=== PATIENT | male | born 1940 | race Caucasian/White ===

== ENCOUNTER 2016-05-25 10:20 | Inpatient (IN) | payer OTHER, MEDICARE ==
[~2016-05-25] VITALS: Ht 172.7 cm; Wt 72.6 kg
--- NOTE | 2016-05-25 10:39 | ED DYSPNEA/ASTHMA COMPLAINT ---
History of Present Illness General Chief Complaint: Dyspnea (COPD, CHF, Other) Stated Complaint: SOB HX OF COPD Source: patient, family Exam Limitations: no limitations Vital Signs & Intake/Output Vital Signs & Intake/Output Vital Signs Date Time Temp Pulse Resp B/P Pulse O2 O2 Flow FiO2 Ox Delivery Rate 05/25 1605 97.8 98 18 118/56 93 Nasal 4.0L Cannula 05/25 1507 97.8 100 18 132/64 96 Nasal 2.0L Cannula 05/25 1143 97.0 98 18 128/62 95 Nasal 2.0L Cannula 05/25 1100 97 Nasal 4.0L Cannula 05/25 1046 92 Nasal 4.0L Cannula 05/25 1020 97.3 101 18 146/78 89 Room Air Allergies Coded Allergies: No Known Allergies (05/25/16) Reconcile Medications Aspirin (Ecotrin*) 81 MG TABLET.DR 1 TAB PO DAILY HEART HEALTH (Reported) Atenolol 50 MG TABLET 1 TAB PO BID HEART (Reported) Atorvastatin Calcium 40 MG TABLET 1 TAB PO DAILY CHOLESTEROL (Reported) Budesonide/Formoterol Fumarate (Symbicort 160-4.5 Mcg Inhaler) 160 MCG-4.5 MCG/ ACTUATION HFA.AER.AD 2 PUF INH BID BREATHING PROBLEMS (Reported) Clopidogrel Bisulfate (Clopidogrel) 75 MG TABLET 1 TAB PO Q48 BLOOD THINNER ( Reported) Diltiazem HCl (Diltiazem 24HR ER) 180 MG CAP.ER.24H 1 CAP PO BID HEART ( Reported) Glipizide (Glipizide ER) 5 MG TAB.ER.24 1 TAB PO DAILY DM (Reported) Irbesartan 300 MG TABLET 1 TAB PO DAILY HEART (Reported) Metformin HCl 1,000 MG TABLET 1 TAB PO BID DM (Reported) Tiotropium [place] (Spiriva) 18 MCG CAP.W.DEV 1 CAP INH DAILY BREATHING PROBLEMS (Reported) Triage Note: 75 Y/O MALE C/O SOB, WORSE WITH EXERTION, FOR APPROX 1 WEEK. STATES "ANY EXERTION AND I AM STRUGGLING. I THINK IT STARTED A COLD AND JUST GOT WORSE". DENIES PAIN. DENIES FEELING SOB IN TRIAGE BUT STATES "IF I WALK TO THE CORNER, I WILL BE". C/O COUGH WITH "YELLOW" MUCOUS. AFEBRILE Triage Nurses Notes Reviewed? yes Onset: Gradual Duration: week(s): (1) Timing: recent history Severity: moderate Activities at Onset: activity Prior Episodes/Possible Cause: occasional episodes Modifying Factors: Improves With: immobilization. HPI: Patient is a 75-year-old male with history of COPD, CAD, history of cardiac stents coming in with shortness of breath, sputum production worsening over the past 1 week. Exertion makes the shortness of breath worse. Denies any chest pain or palpitations. Reports that he feels wheezy. No relief with inhalers at home. Denies chills or fevers. No sick contacts or travel. Denies any abdominal pain. No nausea or vomiting. Denies change in bowel habits. (ANNEL FUENTES) Past History Travel History Traveled to [place] past 21 day No Medical History Any Pertinent Medical History? 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 No (ANNEL FUENTES) Review of Systems Review of Systems Constitutional: Reports: malaise. Comments Review of systems: See HPI, All other systems negative. Constitutional, no chills fever or weight loss HEENT: No visual changes no sore throat Cardiovascular: No chest pain ,palpitation , orthopnea or ankle swelling Skin, no jaundice no rashes Respiratory: No hemoptysis GI: No nausea no vomiting : No dysuria No hematuria Muscle skeletal: no back pain, no neck pain, Neurologic: No numbness no confusion Psych: No stress anxiety or depression,. Heme/endocrine: No bruising no bleeding no polyuria or polydipsia Immunology: No splenectomy or history of AIDS (ANNEL FUENTES) Physical Exam Physical Exam General Appearance: well developed/nourished, no apparent distress, alert, awake , comfortable Respiratory: decreased breath sounds, rhonchi Comments: Well-developed well-nourished person in no acute distress HEENT: Pupils equally round and reactive to light and accommodation. Nose is atraumatic. External auditory canal and Tympanic membranes clear. Pharynx normal. No swelling or edema. Very dry oral mucosa. Neck: Supple, no lymphadenopathy, normal range of motion without pain or tenderness Back: Nontender Cardiovascular: Regular rate and rhythms no murmurs rubs or gallops, normal JVP Respiratory: Chest nontender. No respiratory distress.breath sounds diffuse rhonchi to auscultation bilaterally. Abdomen: Soft, nontender nondistended, no appreciable organomegaly. Normal bowel sounds. No ascites Extremity: One plus pitting edema in the lower extremities bilaterally around the ankles, no calf tenderness to palpation, normal and equal pulses. Neuro: Alert oriented x3 Skin: No appreciable rash on exposed skin, skin is warm and dry. Psych: Mood and affect is normal, memory and judgment is normal. Core Measures ACS in differential dx? Yes Severe Sepsis Present: No Septic Shock Present: No (NARESH SHELDON,ANNEL) Progress Differential Diagnosis: CBC exacerbation, pneumonia, bronchitis, lung cancer, pleural effusion, CHF Plan of Care: Orders Procedure Date/time Status CBC WITHOUT DIFFERENTIAL 05/26 0600 Active BASIC ELECTROLYTES PLUS BUN&CR 05/26 0600 Active Consistent Carbohydrate 2 05/25 D Active Code Status 05/25 1357 Active Admit to inpatient 05/25 1339 Active Code Status 05/25 1339 Complete TRC EVALUATION (GEN) 05/25 1310 Active OXYGEN SETUP (GEN) 05/25 1310 Active Pathway - chart 05/25 1310 Active House Staff 05/25 1310 Active RAPID VIRAL INFLUENZA A 05/25 1310 Active SPECIMEN TO BE OBTAINED 05/25 1310 Active STREP PNEUMO URINARY ANTIGEN 05/25 1310 Active LEGIONELLA URINARY ANTIGEN 05/25 1310 Active Patient Data 05/25 1239 Active BLOOD CULTURE 05/25 1208 Active ARTERIAL BLOOD GAS (GEN) 05/25 1047 Complete Intake & Output 05/25 1046 Active TROPONIN LEVEL 05/25 1038 Complete PARTIAL THROMBOPLASTIN TIME 05/25 1038 Complete PROTHROMBIN TIME 05/25 1038 Complete COMPREHENSIVE METABOLIC PANEL 05/25 1038 Complete CBC WITHOUT DIFFERENTIAL 05/25 1038 Complete EKG 05/25 1022 Active VTE Mechanical Prophylaxis 05/25 UNK Active Vital Signs 05/25 UNK Active FingerStick- Glucose 05/25 UNK Active PHYSICIAN CONSULT 05/25 UNK Active Current Medications Sig/Alisha Start time Last Medication Dose Stop Time Status Admin Clopidogrel Bisulfate 75 MG Q48 05/27 1000 AC (Plavix) Atorvastatin Calcium 40 MG 1700 05/26 1700 AC (Lipitor) Patient Medication 1 UNIT 1700 05/26 1700 AC Teaching 05/26 1701 (STATIN EDUCATION) Azithromycin 500 MG DAILY 05/26 1000 AC (Zithromax) Dextrose/Water 250 ML (D5W) Ceftriaxone Sodium 1,000 MG DAILY 05/26 1000 AC (Rocephin) Losartan Potassium 50 MG DAILY 05/26 1000 AC (Cozaar) Patient Medication 1 UNIT 1000 05/26 1000 AC Teaching 05/26 1001 (LUIS ANGEL INHIBITOR EDUCATION) Atenolol 50 MG BID 05/25 2200 AC (Tenormin) Diltiazem HCl 180 MG BID 05/25 2200 AC (Cardizem CD) Methylprednisolone 40 MG Q8 05/25 2200 AC (Solumedrol) Patient Medication 1 UNIT 05/25 2200 AC Teaching 05/25 220 (BETA EMILY EDUCATION) Patient Medication 1 UNIT 05/25 2200 AC Teaching 05/25 220 (CALCIUM CHANNEL EMILY EDUCATION) Insulin Aspart 0 TIDAC 05/25 1700 AC (NovoLOG) Sodium Chloride 1,000 ML Q13H 05/25 1500 AC (Normal Saline 0.9%) 05/26 0359 Tiotropium [place] 1 PUF DAILY 05/25 1400 AC (Spiriva) Budesonide/ 2 PUF BID 05/25 1359 AC Formoterol Fumarate (Symbicort) Acetaminophen 650 MG Q6P PRN 05/25 1315 AC (Tylenol) Acetaminophen/ 1 TAB Q6P PRN 05/25 1315 AC Hydrocodone Bitart (Vicodin) Oxycodone/ 2 TAB Q6P PRN 05/25 1315 AC Acetaminophen (Percocet) Laboratory Tests 05/25/16 1055: pH 7.38, pCO2 44, pO2 115 H, HCO3 25, ABG O2 Sat (Measured) 94.0 L, P-50 (Temp Corrected) N, Carboxyhemoglobin 3.5, O2 Concentration % 4L, Temperature 97.3, O2 Delivery Method N/C, Phlebotomy Draw Site RIGHT RADIAL 05/25/16 1044: Anion Gap 13, Estimated GFR > 60, BUN/Creatinine Ratio 20.0, Glucose 132 H, Calcium 9.2, Total Bilirubin 1.2, AST 29, ALT 38, Alkaline Phosphatase 80, Troponin I < 0.01, Total Protein 6.6, Albumin 3.5, Globulin 3.1, Albumin/ Globulin Ratio 1.1, PT 13.8 H, INR 1.32 H, APTT 34, CBC w Diff MAN DIFF ORDERED, RBC 5.01, MCV 93.7, MCH 31.4 H, RDW 13.9, MPV 7.5, Gran % 84.3 H, Lymphocytes % 7.9 L, Monocytes % 7.5, Eosinophils % 0.1, Basophils % 0.2, Absolute Granulocytes 12.6 H, Absolute Lymphocytes 1.2, Absolute Monocytes 1.1 H, Absolute Eosinophils 0, Absolute Basophils 0, Platelet Estimate VERIFIED BY SMEAR, Normocytic RBCs VERIFIED, Normochromic RBCs VERIFIED, PUBS MCHC 33.5 Microbiology 05/25 1450 BLOOD: Blood Culture - RECD 05/25 1442 BLOOD: Blood Culture - RECD 05/25 1310 URINE ROUT: Legionella Antigen - COLB 05/25 1310 URINE ROUT: Streptococcus pneumoniae Antigen (M - COLB 05/25 1310 NASOPHARYN: Influenza Virus A & B Rapid Smear - COLB Diagnostic Imaging: Viewed by Me: Radiology Read. Discussed w/RAD: Radiology Read. Radiology Impression: PATIENT: ANDREW DIETZ PRESENT AGE: 75 PATIENT ACCOUNT NO: [id number] : 40 LOCATION: [facility] ORDERING PHYSICIAN: INDRA BAPTISTE DO SERVICE DATE: 05/25/16-1022 EXAM TYPE: RAD - XRY-CHEST XRAY, PA AND LATERAL EXAMINATION: XR CHEST CLINICAL INFORMATION: Cough and shortness of breath x1 week. COMPARISON: Chest radiograph dated 06/27/2006. TECHNIQUE: 2 views of the chest were obtained. FINDINGS: The heart is normal in size. There is calcification of the aortic knob. There is a dense consolidation within the right middle lobe consistent with pneumonia. There is no pneumothorax or large pleural effusion. There are degenerative changes of the thoracic spine. IMPRESSION: Right middle lobe pneumonia. DICTATED BY: MAINE RAMIREZ MD DATE/ TIME DICTATED:05/25/16 / 1158 Initial ED EKG: sinus rhythm at 99 bpm Comments: 05/25/2016 11:18:01 PM on arrival patient in no acute distress diffuse rhonchi on exam with low oxygen level. Placed on 2 L nasal cannula oxygen now at 95%. Patient medicated with DuoNeb treatment and IV Solu-Medrol. 05/25/2016 12:20:59 PM patient informed of lab work results and x-rays revealing right middle lobe pneumonia. IV Rocephin and Zithromax initiated after blood cultures drawn. Patient will be admitted for pneumonia, hypoxia. (ANNEL FUENTES) Departure Departure Time of Disposition: 1212 Disposition: STILL A PATIENT Condition: Stable Clinical Impression Primary Impression: Pneumonia Qualifiers: Pneumonia type: due to unspecified organism Laterality: right Lung location: middle lobe of lung Qualified Code: J18.1 - Lobar pneumonia, unspecified organism Secondary Impressions: Hypoxia Referrals: MARY BETH JACKMAN,DARREL Vazquez (PCP/Family) Departure Forms: Customer Survey General Discharge Information Admission Note Spoke With: MILDRED HOUGH MD Documentation of Exam: Documentation of any treatments & extenuating circumstances including Concerns Regarding Discharge (functional status, medication knowledge or non-compliance, living conditions, etc.) that warrant an admission rather than observation: Patient requiring IV antibiotics, blood cultures return, supplemental oxygen which is new for this patient, may require pulmonology consultation while admitted. Discharge at this time and be medically harmful. Titration of oxygen. Serial dual nebs. (ANNEL FUENTES) PA/HYDROLOGIST Co-Sign Statement Statement: ED Attending supervision documentation- [X] I saw and evaluated the patient. I have also reviewed all the pertinent lab results and diagnostic results. I agree with the findings and the plan of care as documented in the PA's/HYDROLOGIST's documentation. [] I have reviewed the ED Record and agree with the PA's/HYDROLOGIST's documentation. [] Additions or exceptions (if any) to the PAs/HYDROLOGIST's note and plan are summarized below: [] (INDRA BAPTISTE DO) Critical Care Note Critical Care Note Critical Care Time: 30-74 min (ANNEL FUENTES)
[2016-05-25 10:55] LABS: ABSOLUTE BASOPHIL COUNT 0 /CUMM (0.0-0.2); ABSOLUTE EOSINOPHIL COUNT 0 /CUMM (0.0-0.7); ABSOLUTE GRANULOCYTE CT 12.6 /CUMM (1.4-6.5); ABSOLUTE LYMPH COUNT 1.2 /CUMM (1.2-3.4); ABSOLUTE MONOCYTE COUNT 1.1 /CUMM (0.10-0.60); BASOPHIL % 0.2 % (0.0-2.0); EOSINOPHIL % 0.1 % (0-5); GRANULOCYTE % 84.3 % (42.2-75.2); HEMATOCRIT 46.9 % (42-52); MEAN CORPUSCULAR HGB 31.4 PG (27.0-31.0); MEAN CORPUSCULAR HGB CONC 33.5 G/DL (33.0-37.0); MEAN CORPUSCULAR VOLUME 93.7 FL (80.0-94.0); MEAN PLATELET VOLUME 7.5 FL (7.4-10.4); PLATELET COUNT 268 /CUMM (130-400); RBC DISTRIBUTION WIDTH 13.9 % (11.5-14.5); RED BLOOD CELL CT 5.01 /CUMM (4.70-6.10)
[2016-05-25 11:09] LABS: PT 13.8 SEC (9.4-12.5); PTT 34 SEC (25-37)
[2016-05-25] MEDS ORDERED: GLIPIZIDE ER5 M1 PO (11:55)
[2016-05-25] MEDS ORDERED: CLOPIDOGREL75 M1 PO (11:55)
[2016-05-25] MEDS ORDERED: ATENOLOL50 M1 PO (11:55)
[2016-05-25] MEDS ORDERED: METFORMIN HCL1000 M1 PO (11:56)
[2016-05-25] MEDS ORDERED: SYMBICORT 16010.2 GM INH (11:56)
[2016-05-25] MEDS ORDERED: IRBESARTAN300 M1 PO (11:56)
[2016-05-25] MEDS ORDERED: ATORVASTATIN CA40 M1 PO (11:56)
[2016-05-25] MEDS ORDERED: DILTIAZEM 24HR180 MG PO (11:56)
[2016-05-25] MEDS ORDERED: ASPIRIN EC81 M1 PO (11:57)
[2016-05-25] MEDS ORDERED: SPIRIVA18 MCG INH (11:57)
--- NOTE | 2016-05-25 12:04 | RADIOLOGY REPORT ---
EXAMINATION: XR CHEST CLINICAL INFORMATION: Cough and shortness of breath x1 week. COMPARISON: Chest radiograph dated 06/27/2006. TECHNIQUE: 2 views of the chest were obtained. FINDINGS: The heart is normal in size. There is calcification of the aortic knob. There is a dense consolidation within the right middle lobe consistent with pneumonia. There is no pneumothorax or large pleural effusion. There are degenerative changes of the thoracic spine. IMPRESSION: Right middle lobe pneumonia.
--- NOTE | 2016-05-25 12:48 | History & Physical ---
DARLYN WALKER 05/25/16 1245: General Information and HPI MD Statement: I have seen and personally examined ANDREW DIETZ and documented this H&P. The patient is a 75 year old M who presented with a patient stated chief complaint of [shortness of breath]. Source of Information: patient Exam Limitations: no limitations History of Present Illness: 75-year-old male with a past medical history of hyperlipidemia, COPD not on home O2, [id number] diabetes mellitus, coronary artery disease status post stent placements to RCA in 2004, left carotid endarterectomy in April 2005, history of supraventricular tachycardia presented to the ED with chief complaints of worsening shortness of breath, and phlegm production for the past 1 week According to the patient he was in [place] [facility] up until 3 weeks ago when he started to experience some head cold surface symptoms and started experiencing shortness of breath which she stayed worsened within the past 2 days to the point that he is having increasingly difficulty ambulating even a few feet without getting dyspneic. He denies any chest pain, fever, any change in his diet recently, but does endorse history of sick contacts saying that he went to a kid's birthday green party and he may have caught it from there. He denies any orthopnea, PND, recent history of prolonged travel. He does admit to having mild ankle swelling as well as endorses bringing up purulent phlegm that he describes is yellowish- green in color. He does have productive cough at baseline, the frequency of which has not changed but the color the phlegm has. Apparently he was diagnosed with COPD about a year and a half ago by his primary care physician and was asked to follow with Dr. Duncan however he never saw the clinical program consultant as an outpatient. He follows up with Dr. Alvarado for his heart issues and last saw him before Iftikhar apparently underwent a stress test a couple of years ago which reportedly is normal. He does admit to a runny nose, denies sore throat but does endorse sneezing. Of note he is a current smoker smoking half pack per day and has been doing so since the age of 16 years. No history of birds, pets or any occupational exposure to inhalants. Allergies/Medications Allergies: Coded Allergies: No Known Allergies (05/25/16) Home Med list Aspirin (Ecotrin*) 81 MG TABLET.DR 1 TAB PO DAILY HEART HEALTH (Reported) Atenolol 50 MG TABLET 1 TAB PO BID HEART (Reported) Atorvastatin Calcium 40 MG TABLET 1 TAB PO DAILY CHOLESTEROL (Reported) Budesonide/Formoterol Fumarate (Symbicort 160-4.5 Mcg Inhaler) 160 MCG-4.5 MCG/ ACTUATION HFA.AER.AD 2 PUF INH BID BREATHING PROBLEMS (Reported) Clopidogrel Bisulfate (Clopidogrel) 75 MG TABLET 1 TAB PO Q48 BLOOD THINNER ( Reported) Diltiazem HCl (Diltiazem 24HR ER) 180 MG CAP.ER.24H 1 CAP PO BID HEART ( Reported) Glipizide (Glipizide ER) 5 MG TAB.ER.24 1 TAB PO DAILY DM (Reported) Irbesartan 300 MG TABLET 1 TAB PO DAILY HEART (Reported) Metformin HCl 1,000 MG TABLET 1 TAB PO BID DM (Reported) Tiotropium [place] (Spiriva) 18 MCG CAP.W.DEV 1 CAP INH DAILY BREATHING PROBLEMS (Reported) Compliance With Home Meds: GOOD Past History Travel History Traveled to [place] past 21 day No Medical History Neurological: NONE EENT: NONE Cardiovascular: hypertension, CARDIAC STENT HIGH CHOLESTEROL AFIB PER PT, "I THINK" Respiratory: COPD Gastrointestinal: NONE Hepatic: NONE Renal: NONE Musculoskeletal: NONE Psychiatric: NONE Endocrine: diabetes Blood Disorders: NONE Cancer(s): NONE 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 Home Smoking Status: Current Some Day Smoker (1/2 pack -60 years) ETOH Use: denies use Illicit Drug Use: denies illicit drug use Functional Ability ADLs Independent: dressing, eating, toileting, bathing. Ambulation: independent Employment History Employment Retired Review of Systems Review of Systems Constitutional: Reports: chills. Denies: diaphoresis, fever, weakness. EENTM: Denies: visual changes. Cardiovascular: Reports: peripheral edema. Denies: chest pain, orthopena, palpitations. Respiratory: Reports: cough, short of breath, sputum production. Denies: hemoptysis, orthopnea, stridor, wheezing. GI: Reports: nausea. Denies: abdominal pain, constipation, diarrhea, vomiting. Genitourinary: Reports: no symptoms. Musculoskeletal: Reports: no symptoms. Neurological/Psychological: Denies: headache, numbness, tingling, tremors, unable to move lower ext, unable to move upper ext, weakness. Exam & Diagnostic Data Last 24 Hrs of Vital Signs/I&O Vital Signs Date Time Temp Pulse Resp B/P Pulse O2 O2 Flow FiO2 Ox Delivery Rate 05/25 1143 97.0 98 18 128/62 95 Nasal 2.0L Cannula 05/25 1100 97 Nasal 4.0L Cannula 05/25 1046 92 Nasal 4.0L Cannula 05/25 1020 97.3 101 18 146/78 89 Room Air Intake & Output 05/25 1600 05/25 0800 05/25 0000 Intake Total Output Total Balance Patient 162 lb Weight Physical Exam General Appearance Alert, Oriented X3, Cooperative, No Acute Distress HEENT Atraumatic, PERRLA, EOMI, DRY MUCOUS MEMBRANES Neck Supple, No JVD, No thryomegaly, +2 Carotid Pulse wo Bruit, No LAD Cardiovascular Regular Rate, Normal S1, Normal S2, No Murmurs Lungs DECREASED BREATH SOUNDS B/L Abdomen Normal Bowel Sounds, Soft, No Tenderness Neurological Normal Speech, Strength at 5/5 X4 Ext, Normal Tone, Sensation Intact, Cranial Nerves 3-12 NL, Reflexes 2+ Extremities No Clubbing, No Cyanosis, Normal Pulses, No Tenderness/Swelling, 1+ B/L EDEMA Last 24 Hrs of Labs/Elfego: Laboratory Tests 05/25/16 1055: pH 7.38, pCO2 44, pO2 115 H, HCO3 25, ABG O2 Sat (Measured) 94.0 L, P-50 (Temp Corrected) N, Carboxyhemoglobin 3.5, O2 Concentration % 4L, Temperature 97.3, O2 Delivery Method N/C, Phlebotomy Draw Site RIGHT RADIAL 05/25/16 1044: Anion Gap 13, Estimated GFR > 60, BUN/Creatinine Ratio 20.0, Glucose 132 H, Calcium 9.2, Total Bilirubin 1.2, AST 29, ALT 38, Alkaline Phosphatase 80, Troponin I < 0.01, Total Protein 6.6, Albumin 3.5, Globulin 3.1, Albumin/ Globulin Ratio 1.1, PT 13.8 H, INR 1.32 H, APTT 34, CBC w Diff MAN DIFF ORDERED, RBC 5.01, MCV 93.7, MCH 31.4 H, RDW 13.9, MPV 7.5, Gran % 84.3 H, Lymphocytes % 7.9 L, Monocytes % 7.5, Eosinophils % 0.1, Basophils % 0.2, Absolute Granulocytes 12.6 H, Absolute Lymphocytes 1.2, Absolute Monocytes 1.1 H, Absolute Eosinophils 0, Absolute Basophils 0, Platelet Estimate VERIFIED BY SMEAR, Normocytic RBCs VERIFIED, Normochromic RBCs VERIFIED, PUBS MCHC 33.5 Microbiology 05/25 1309 URINE ROUT: Legionella Antigen - COLB 05/25 1309 URINE ROUT: Streptococcus pneumoniae Antigen (M - COLB 05/25 1309 NASOPHARYN: Influenza Virus A & B Rapid Smear - COLB 05/26 1207 BLOOD: Blood Culture - ORD 05/26 1207 BLOOD: Blood Culture - ORD Diagnostic Data EKG Results NSR, HR:99, UT:172, no ST-T changes CXR Results FINDINGS: The heart is normal in size. There is calcification of the aortic knob. There is a dense consolidation within the right middle lobe consistent with pneumonia. There is no pneumothorax or large pleural effusion. There are degenerative changes of the thoracic spine. IMPRESSION: Right middle lobe pneumonia. Assessment/Plan Assessment: 75-year-old male with a past medical history of hyperlipidemia, COPD, non- insulin-dependent diabetes mellitus, coronary artery disease status post stent placements to RCA in 2004, left carotid endarterectomy in April 2005, history of supraventricular tachycardia presented to the ED with chief complaints of worsening shortness of breath, and phlegm production for the past 1 week. Vitals at the time of admission blood pressure 146/78, pulse 101, afebrile, saturating 89% on room air. On physical exam he is alert and oriented 3, cooperative and in no acute distress. HEENT revealed PERRLA, EOMI, dry mucous membranes. Examination of the neck did not reveal any JVD, cervical lymphadenopathy. Cardiovascular exam revealed regular rate, normal S1, S2, no murmurs rubs or gallops appreciated. No S3 or S4 appreciated. Chest was clear to auscultation with decreased breath sounds bilaterally. Abdominal exam is benign and abdomen soft, nontender, nondistended normal bowel sounds in all 4 quadrants. Examination of the lower extremities reveale 1+ bilateral edema. Labs pertinent for leukocytosis with a white blood cell count of 15,000, H&H 15.7/46.9, platelet count of 268,000. Serum chemistries revealed hyponatremia with a sodium of 135, potassium of 4.6, anion gap of 13, BUN 12 and a creatinine of 0.6. Serum glucose elevated to 132. LFTs unremarkable with an AST/ALT of 29 /78, alkaline phosphatase of 80, troponin less than 0.01, total bili 1.2% of troponin negative at less than 0.01. INR elevated to 1.32. Blood gas revealed a normal pH of 7.38, PCO2 44, PO2 115, bicarbonate of 25 on 4 L of oxygen via nasal cannula. Chest x-ray revealed calcification of the aortic knob, dense consolidation within the right middle lobe consistent with pneumonia, no pneumothorax or large pleural effusion with degenerative changes of thoracic spine. In the ER he received albuterol, Atrovent, Rocephin thousand milligrams IV 1, Solu-Medrol 125 mg IV 1 and azithromycin. Last echocardiogram was done in 2006 which showed mild concentric left ventricular hypertrophy, any upper quadrant and 60%, trace mitral regurgitation and trace pulmonic valvular regurg. PFTs done in April 2011 revealed severe obstructive lung disease with hyperinflation and air trapping Assessment and plan Admit to [facility]. # Acute hypoxemic respiratory failure With desaturation to approximately 78% and was placed on 4 L of oxygen via nasal cannula. Most likely secondary to pneumonia given radiological evidence, purulent productive cough, versus bronchitis versus COPD exacerbation versus CHF exacerbation unlikely as he does not seem to be volume overloaded on exam does not have bilateral crackles or and elevated JVD. Send lower respiratory sample for culture Follow-up blood cultures 2 Follow-up urinary antigen for strep pneumo and Legionella Follow up rapid flu swab Try to maintain on oxygen for saturations greater than 92% [facility] Pulmonary consult with Dr. Duncan has already been placed we'll see the patient tomorrow #COPD Continue on Spiriva, start on Solu-Medrol 40 mg IV every 8 TRC #Coronary artery disease Continue on aspirin 81 mg daily, atenolol 50 mg twice a day, Lipitor 40 mg Plavix 75 mg daily, losartan 50 mg daily, and diltiazem 180 mg twice a day #Non-insulin dependent diabetes mellitus We'll continue to hold patient's oral hyperglycemic medications Maintain on NovoLog sliding scale Accu-Cheks 3 times a day at bedtime And A1c DVT prophylaxis Heparin 5000 international units 3 times a day subcutaneous Diet Consistent carb 2 CODE STATUS Full code As Ranked By This Provider Problem List: 1. Hypoxia 2. Pneumonia Qualifiers Pneumonia type: due to unspecified organism Laterality: right Lung location: middle lobe of lung Qualified Code: J18.1 - Lobar pneumonia, unspecified organism Core Measures/Miscellaneous Acute Coronary Syndrome ACS Diagnosis: No Cerebrovascular Accident CVA/TIA Diagnosis: No Congestive Heart Failure CHF Diagnosis: No Venous Thromboembolism VTE Risk Factors: Age > 40 [facility] prophylaxis d/t: No contraindications No VTE Pharm Prophylaxis d/t: No contraindications VTE Diagnosis: No VTE Type: NONE VTE Confirmed by (Test): NONE Severe Sepsis Severe Sepsis Present: No Septic Shock Septic Shock Present: No Miscellaneous Documentation Attending Case Discussed With: Dr. Morataya Primary Care Physician: DARREL CLINTON MD Patient sees these Specialists Dr. Salbador Alvarado Level of Patient Care: General Medicine Resident Review Statement Resident Statement: admitted by resident JAVON MORATAYA MD 05/25/165: Attending MD Review Statement Attending Statement Attending MD Statement: examined this patient, discuss w/resident/PA/COMPUTER TESTER, agreed w/resident/PA/COMPUTER TESTER, reviewed EMR data (avail), discussed with nursing, reviewed images, amended to note Attending Assessment/Plan: The patient is a 75 yo male with h/o severe COPD (based on prior PFT's 2011), SVT, CAD (s/p RCA stent 2004), carotid disease (s/p left CEA 2005), HL, HTN, & DM2 who presented in the [place] ED with complaints of 1 week h/o progressive dyspnea. He denied any fever or chills. Did note yellow sputum. No chest pain or palpitations. Was observed to be hypoxemic upon arriving in ED with pulse ox in 70's per ED physician. CXR showed RML infiltrate. Physical Exam: VS: T 97, P 98, R 18, BP 128/62, PO 95% HEENT: eyes- PERRLA, EOMI matias- dry mucosa w/o lesions Neck: no JVD, bruits Chest: moderate diminished breath sounds diffusely with scattered rhonchi and minimal wheeze on forced expiration Cor: RRR, nl S1, S2 w/o murm Abd: BS+, soft, NT Ext: no edema, pulses 1+ Neuro: alert & oriented x 3, non-focal exam Labs/Tests- as above Impression/Plan: #Acute Hypoxic Respiratory Failure- patient had pulse ox in 70's on presentation per ED physician. Not normally on oxygen at home. Plan: Nasal oxygen support. Close monitoring on floor. Treat underlying conditions as below. #Right Middle Lobe Community Acquired Pneumonia- RML infiltrate noted. No fever, WBC mildly elevated. Plan: Will culture sputum. Begin Ceftriaxone/Zithromax. Mucinex bid. #COPD Exacerbation- patient with known COPD (severe) on PFT"s. Was previously referred to pulmonary by PCP (was referred to Dr. Duncan), however had not seen. Plan: Will treat with IV Medrol, albuterol aerosol, etc. Pulmonary consult with Dr. Duncan to establish care. #H/O CAD, SVT- no c/o chest pain. Plan: Continue Atenolol,Diltiazem, Irbesartan (Losartan in hospital), Plavix & Ecotrin. #Hyperlipidemia- on Atorvastatin. Plan: Continue Atorvastatin. #Essential Hypertension- BP stable. Plan: Continue Cardizem, Atenolol, Irbesartan (Losartan while in hospital). #H/O Carotid Disease- neuro exam stable. Plan: Continue ASA/Plavix. #DM2- on Metformin/Glipizide. Expect increase in sugars with steroids. Plan: Will monitor sugars and use insulin sliding scale. Continue glipizide.
[2016-05-25 16:05] VITALS: BP 118/56
--- NOTE | 2016-05-25 21:36 | Admission Certification ---
Admission Certification Certification Statement - As attending physician, I certify that at the time of - admission, based on clinical presentation, severity of - symptoms, need for further diagnostic testing and - therapeutic interventions, and risk of adverse outcomes - without in-hospital treatment, in my clinical assessment, - this patient requires an acute hospital stay for a minimum - of two nights or longer. I have also considered psychsocial - factors such as support system, advanced age, financial - issues, cognitive issues, and failed out-patient treatments, - past re-admission history, safety of patient, and lack of - compliance as applicable. Specific rationale supporting this admission is: The patient is being admitted with acute hypoxic respiratory failure secondary to RML community acquired pneumonia and COPD exacerbation. Requires oxygen support and monitoring, IV antibiotics (Ceftriaxone/Zithromax), IV Medrol and aerosol. Pulmonary consult- Dr. Duncan.
[2016-05-25 22:13] VITALS: BP 122/60
[2016-05-26 05:43] VITALS: BP 114/60
--- NOTE | 2016-05-26 07:30 | PN- Housestaff ---
DARLYN WALKER 05/26/16 0729: Subjective Follow-up For: Acute hypoxic respiratory failure / PNA Complaints: no complaints Subjective: Patient seen and examined at bedside. He has no active complaints. Denies chest pain, shortness of breath. Continues to be on 3.0L on oxygen. No fevers overnight. Review of Systems Constitutional: Denies: chills, fever, weakness. Cardiovascular: Denies: chest pain, orthopena, palpitations, peripheral edema. Respiratory: Reports: cough, sputum production. Denies: hemoptysis, short of breath, wheezing. Gastrointestinal: Denies: abdominal pain, constipation, diarrhea, nausea, vomiting. Genitourinary: Reports: no symptoms. Musculoskeletal: Reports: no symptoms. Neurological/Psychological: Denies: headache, numbness, tingling, tremors. Objective Last 24 Hrs of Vital Signs/I&O Vital Signs Date Time Temp Pulse Resp B/P Pulse O2 O2 Flow FiO2 Ox Delivery Rate 05/26 0543 97.6 85 20 114/60 93 05/26 0000 Nasal 3.0L Cannula 05/25 2213 97.7 96 20 122/60 97 Nasal 4.0L Cannula 05/25 1645 Nasal 3.0L Cannula 05/25 1605 97.8 98 18 118/56 93 Nasal 4.0L Cannula 05/25 1545 94 Nasal 3.0L Cannula 05/25 1507 97.8 100 18 132/64 96 Nasal 2.0L Cannula 05/25 1143 97.0 98 18 128/62 95 Nasal 2.0L Cannula 05/25 1100 97 Nasal 4.0L Cannula 05/25 1046 92 Nasal 4.0L Cannula 05/25 1020 97.3 101 18 146/78 89 Room Air Intake & Output 05/26 0800 05/26 0000 05/25 1600 Intake Total 1080 465 Output Total 175 Balance 1080 290 Intake, IV 600 225 Intake, Oral 480 240 Output, Urine 175 Patient 160 lb Weight Physical Exam General Appearance: Alert, Oriented X3, Cooperative, No Acute Distress HEENT: Atraumatic, PERRLA, EOMI, Mucous Membr. moist/pink Neck: Supple, No JVD Cardiovascular: Regular Rate, Normal S1, Normal S2, No Murmurs Lungs: decreased breath sounds b/l Abdomen: Normal Bowel Sounds, Soft, No Tenderness Neurological: Normal Speech, Strength at 5/5 X4 Ext, Normal Tone, Sensation Intact, Cranial Nerves 3-12 NL, Reflexes 2+ Extremities: No Clubbing, No Cyanosis, Normal Pulses, No Tenderness/Swelling, trace edema b/l Current Medications: Current Medications Sig/Alisha Start time Last Medication Dose Route Stop Time Status Admin Acetaminophen 650 MG Q6P PRN 05/25 1315 AC PO Acetaminophen/ 1 TAB Q6P PRN 05/25 1315 AC Hydrocodone Bitart PO Albuterol Sulfate 3 ML Q4P PRN 05/25 1800 AC INH Albuterol Sulfate 3 ML ONCE ONE 05/25 1045 DC 05/25 INH 05/25 1046 1100 Aspirin Buffered 81 MG DAILY 05/26 1000 AC PO Aspirin Buffered 81 MG DAILY 05/25 1358 DC 05/25 PO 1509 Atenolol 50 MG BID 05/250 DC PO Atenolol 50 MG BID 05/25 2200 AC 05/25 PO 2225 Atorvastatin Calcium 40 MG 1700 05/26 1700 AC PO Azithromycin 500 MG DAILY 05/26 1000 AC Dextrose/Water 250 ML IV Azithromycin 500 MG ONCE ONE 05/25 1215 DC 05/25 Dextrose/Water 250 ML IV 05/25 1314 1505 Budesonide/ 2 PUF BID 05/25 1359 AC 05/25 Formoterol Fumarate INH 2224 Ceftriaxone Sodium 1,000 MG DAILY 05/26 1000 AC IV Ceftriaxone Sodium 0 .STK-MED ONE 05/25 1443 DC .ROUTE Ceftriaxone Sodium 1,000 MG ONCE ONE 05/25 1215 DC 05/25 IV 05/25 1216 1505 Clopidogrel Bisulfate 75 MG Q48 05/27 1000 AC PO Diltiazem HCl 180 MG BID 05/25 2200 DC PO Diltiazem HCl 180 MG BID 05/25 2200 AC 05/25 PO 2225 Heparin Sodium 5,000 UNIT Q8 05/25 1400 AC 05/25 (Porcine) SC 1509 Insulin Aspart 0 TIDAC 05/25 1700 AC 05/25 SC 1911 Ipratropium [place] 2.5 ML ONCE ONE 05/25 1045 DC 05/25 INH 05/25 1046 1100 Losartan Potassium 50 MG DAILY 05/26 1000 AC PO Methylprednisolone 40 MG Q8 05/25 2200 DC IV Methylprednisolone 40 MG Q8 05/25 2200 AC 05/26 IV 0505 Methylprednisolone 125 MG ONCE ONE 05/25 1100 DC 05/25 IV 05/25 1101 1050 Methylprednisolone 0 .STK-MED ONE 05/25 1051 DC .ROUTE Oxycodone/ 2 TAB Q6P PRN 05/25 1315 AC Acetaminophen PO Patient Medication 1 UNIT 1700 05/26 1700 AC [facility] ED 05/26 1701 Patient Medication 1 UNIT 1000 05/26 1000 AC [facility] ED 05/26 1001 Patient Medication 1 UNIT 0 05/25 2200 [place] 05/25 [facility] 05/25 220 2226 Patient Medication 1 UNIT 2200 05/25 2200 DC 05/25 [facility] ED 05/25 220 2226 Patient Medication 1 UNIT ONE NR 05/25 1445 DC [facility] ED 05/25 2045 Patient Medication 1 UNIT 1400 05/25 1400 [place] 05/25 [facility] ED 05/25 140 2225 Patient Medication 1 UNIT ONE NR 05/[address] [facility] ED 05/25 2000 Sodium Chloride 1,000 ML Q13H 05/25 1500 DC 05/25 IV 05/26 0359 1500 Tiotropium [place] 1 PUF DAILY 05/25 1400 AC INH Last 24 Hrs of Lab/Elfego Results Last 24 Hrs of Labs/Mics: Laboratory Tests 05/25/16 1055: pH 7.38, pCO2 44, pO2 115 H, HCO3 25, ABG O2 Sat (Measured) 94.0 L, P-50 (Temp Corrected) N, Carboxyhemoglobin 3.5, O2 Concentration % 4L, Temperature 97.3, O2 Delivery Method N/C, Phlebotomy Draw Site RIGHT RADIAL 05/25/16 1044: Anion Gap 13, Estimated GFR > 60, BUN/Creatinine Ratio 20.0, Glucose 132 H, Calcium 9.2, Total Bilirubin 1.2, AST 29, ALT 38, Alkaline Phosphatase 80, Troponin I < 0.01, Total Protein 6.6, Albumin 3.5, Globulin 3.1, Albumin/ Globulin Ratio 1.1, PT 13.8 H, INR 1.32 H, APTT 34, CBC w Diff MAN DIFF ORDERED, RBC 5.01, MCV 93.7, MCH 31.4 H, RDW 13.9, MPV 7.5, Gran % 84.3 H, Lymphocytes % 7.9 L, Monocytes % 7.5, Eosinophils % 0.1, Basophils % 0.2, Absolute Granulocytes 12.6 H, Absolute Lymphocytes 1.2, Absolute Monocytes 1.1 H, Absolute Eosinophils 0, Absolute Basophils 0, Platelet Estimate VERIFIED BY SMEAR, Normocytic RBCs VERIFIED, Normochromic RBCs VERIFIED, PUBS MCHC 33.5 Microbiology 05/25 1450 BLOOD: Blood Culture - RECD 05/25 1442 BLOOD: Blood Culture - RECD 05/25 1310 URINE ROUT: Legionella Antigen - COLB 05/25 131 URINE ROUT: Streptococcus pneumoniae Antigen (M - COLB 05/25 1310 NASOPHARYN: Influenza Virus A & B Rapid Smear - COLB Orders Fingersticks (last 24 hrs): 114, 314, 167, 203, 203 Assessment/Plan Assessment: 75-year-old male with a past medical history of hyperlipidemia, COPD, non- insulin-dependent diabetes mellitus, coronary artery disease status post stent placements to RCA in 2004, left carotid endarterectomy in April 2005, history of supraventricular tachycardia presented to the ED with chief complaints of worsening shortness of breath, and phlegm production for the past 1 week. Vitals at the time of admission blood pressure 146/78, pulse 101, afebrile, saturating 89% on room air. On physical exam he is alert and oriented 3, cooperative and in no acute distress. HEENT revealed PERRLA, EOMI, dry mucous membranes. Examination of the neck did not reveal any JVD, cervical lymphadenopathy. Cardiovascular exam revealed regular rate, normal S1, S2, no murmurs rubs or gallops appreciated. No S3 or S4 appreciated. Chest was clear to auscultation with decreased breath sounds bilaterally. Abdominal exam is benign and abdomen soft, nontender, nondistended normal bowel sounds in all 4 quadrants. Examination of the lower extremities reveale 1+ bilateral edema. Labs pertinent for leukocytosis with a white blood cell count of 15,000, H&H 15.7/46.9, platelet count of 268,000. Serum chemistries revealed hyponatremia with a sodium of 135, potassium of 4.6, anion gap of 13, BUN 12 and a creatinine of 0.6. Serum glucose elevated to 132. LFTs unremarkable with an AST/ALT of 29 /78, alkaline phosphatase of 80, troponin less than 0.01, total bili 1.2% of troponin negative at less than 0.01. INR elevated to 1.32. Blood gas revealed a normal pH of 7.38, PCO2 44, PO2 115, bicarbonate of 25 on 4 L of oxygen via nasal cannula. Chest x-ray revealed calcification of the aortic knob, dense consolidation within the right middle lobe consistent with pneumonia, no pneumothorax or large pleural effusion with degenerative changes of thoracic spine. In the ER he received albuterol, Atrovent, Rocephin thousand milligrams IV 1, Solu-Medrol 125 mg IV 1 and azithromycin. Last echocardiogram was done in 2006 which showed mild concentric left ventricular hypertrophy, any upper quadrant and 60%, trace mitral regurgitation and trace pulmonic valvular regurg. PFTs done in April 2011 revealed severe obstructive lung disease with hyperinflation and air trapping Assessment and plan # Acute hypoxemic respiratory failure With desaturation to approximately 78% and was placed on 4 L of oxygen via nasal cannula. Most likely secondary to pneumonia given radiological evidence, purulent productive cough, versus bronchitis versus COPD exacerbation versus CHF exacerbation unlikely as he does not seem to be volume overloaded on exam does not have bilateral crackles or and elevated JVD. F/U lower respiratory sample for culture - not sent Follow-up blood cultures 2 Follow-up urinary antigen for strep pneumo and Legionella - not sent Follow up rapid flu swab - not sent Try towean off oxygen for saturations greater than 92% TRC nebs Pulmonary consult with Dr. Duncan has already been placed. F/U recs #COPD Continue on Spiriva, Solu-Medrol taper to 40 mg IV every 12 hrs TRC #Coronary artery disease Continue on aspirin 81 mg daily, atenolol 50 mg twice a day, Lipitor 40 mg Plavix 75 mg daily, losartan 50 mg daily, and diltiazem 180 mg twice a day #Non-insulin dependent diabetes mellitus We'll continue to hold patient's oral hyperglycemic medications Maintain on NovoLog sliding scale. FSG's elevated to 200's, 2/2 steroids. Will increase sliding scale Accu-Cheks 3 times a day at bedtime F/U A1c DVT prophylaxis Heparin 5000 international units 3 times a day subcutaneous Diet Consistent carb 2 CODE STATUS Full code Problem List: 1. Hypoxia 2. Pneumonia Pain Ratin Pain Location: n/a Pain Goal: Remain pain free Pain Plan: tylenol Tomorrow's Labs & Rationales: cbc, bep - wbc count for leukocytosis, and hyponatremia JAVON ELLER MD 05/26/16 1238: Attending MD Review Statement Attending Statement Attending MD Statement: examined this patient, discuss w/resident/PA/AERIAL ADVERTISER, agreed w/resident/PA/AERIAL ADVERTISER, reviewed EMR data (avail), discussed with nursing, reviewed images, amended to note Attending Assessment/Plan: The patient was seen and discussed with house staff. Appreciate pulmonary input. Agree with plan of care as outlined.
[2016-05-26 08:18] LABS: ABSOLUTE BASOPHIL COUNT 0 /CUMM (0.0-0.2); ABSOLUTE EOSINOPHIL COUNT 0 /CUMM (0.0-0.7); ABSOLUTE GRANULOCYTE CT 11.9 /CUMM (1.4-6.5); ABSOLUTE LYMPH COUNT 0.5 /CUMM (1.2-3.4); ABSOLUTE MONOCYTE COUNT 0.3 /CUMM (0.10-0.60); BASOPHIL % 0 % (0.0-2.0); EOSINOPHIL % 0 % (0-5); GRANULOCYTE % 93.5 % (42.2-75.2); HEMATOCRIT 43.8 % (42-52); MEAN CORPUSCULAR HGB 30.9 PG (27.0-31.0); MEAN CORPUSCULAR HGB CONC 32.4 G/DL (33.0-37.0); MEAN CORPUSCULAR VOLUME 95.5 FL (80.0-94.0); MEAN PLATELET VOLUME 7.6 FL (7.4-10.4); PLATELET COUNT 218 /CUMM (130-400); RBC DISTRIBUTION WIDTH 13.6 % (11.5-14.5); RED BLOOD CELL CT 4.59 /CUMM (4.70-6.10); WHITE BLOOD CELL COUNT 12.8 /CUMM (4.8-10.8)
--- NOTE | 2016-05-26 10:24 | Cons- Pulmonary ---
General Information and HPI Consulting Request Date of Consult: 05/26/16 Requested By: MED TEAM History of Present Illness: 75-year-old male with a past medical history of hyperlipidemia, COPD not on home O2, [id number] diabetes mellitus, coronary artery disease status post stent placements to RCA in 2004, left carotid endarterectomy in April 2005, history of supraventricular tachycardia presented to the ED with chief complaints of worsening shortness of breath, and phlegm production for the past 1 week According to the patient he was in [facility] up until 3 weeks ago when he started to experience some head cold surface symptoms and started experiencing shortness of breath which she stayed worsened within the past 2 days to the point that he is having increasingly difficulty ambulating even a few feet without getting dyspneic. He denies any chest pain, fever, any change in his diet recently, but does endorse history of sick contacts saying that he went to a kid's birthday alliance party and he may have caught it from there. He denies any orthopnea, PND, recent history of prolonged travel. He does admit to having mild ankle swelling as well as endorses bringing up purulent phlegm that he describes is yellowish- green in color. He does have productive cough at baseline, the frequency of which has not changed but the color has changed He follows up with Dr. Alvarado for his heart issues and last saw him before Iftikhar apparently underwent a stress test a couple of years ago which reportedly is normal. He does admit to a runny nose, denies sore throat but does endorse sneezing. Of note he is a current smoker smoking half pack per day and has been doing so since the age of 16 years. No history of birds, pets or any occupational exposure to inhalants. Review of Systems Constitutional: Reports: chills. Denies: diaphoresis, fever, weakness. EENTM: Denies: visual changes. Cardiovascular: Reports: peripheral edema. Denies: chest pain, orthopena, palpitations. Respiratory: Reports: cough, short of breath, sputum production. Denies: hemoptysis, orthopnea, stridor, wheezing. GI: Reports: nausea. Denies: abdominal pain, constipation, diarrhea, vomiting. Genitourinary: Reports: no symptoms. Musculoskeletal: Reports: no symptoms. Neurological/Psychological: Denies: headache, numbness, tingling, tremors, unable to move lower ext, unable to move upper ext, weaknes Allergies/Medications Allergies: Coded Allergies: No Known Allergies (05/25/16) Home Med List: Aspirin (Ecotrin*) 81 MG TABLET.DR 1 TAB PO DAILY HEART HEALTH (Reported) Atenolol 50 MG TABLET 1 TAB PO BID HEART (Reported) Atorvastatin Calcium 40 MG TABLET 1 TAB PO DAILY CHOLESTEROL (Reported) Budesonide/Formoterol Fumarate (Symbicort 160-4.5 Mcg Inhaler) 160 MCG-4.5 MCG/ ACTUATION HFA.AER.AD 2 PUF INH BID BREATHING PROBLEMS (Reported) Clopidogrel Bisulfate (Clopidogrel) 75 MG TABLET 1 TAB PO Q48 BLOOD THINNER ( Reported) Diltiazem HCl (Diltiazem 24HR ER) 180 MG CAP.ER.24H 1 CAP PO BID HEART ( Reported) Glipizide (Glipizide ER) 5 MG TAB.ER.24 1 TAB PO DAILY DM (Reported) Irbesartan 300 MG TABLET 1 TAB PO DAILY HEART (Reported) Metformin HCl 1,000 MG TABLET 1 TAB PO BID DM (Reported) Tiotropium [place] (Spiriva) 18 MCG CAP.W.DEV 1 CAP INH DAILY BREATHING PROBLEMS (Reported) Review of Systems Review of Systems Constitutional: Reports: see HPI. 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 Home Smoking Status: Current Some Day Smoker (1/2 pack -60 years) ETOH Use: denies use Illicit Drug Use: denies illicit drug use Functional Ability ADLs Independent: dressing, eating, toileting, bathing. Ambulation: independent Employment History Employment: Retired Exam & Diagnostic Data Last 24 Hrs of Vital Signs/I&O Vital Signs Date Time Temp Pulse Resp B/P Pulse O2 O2 Flow FiO2 Ox Delivery Rate 05/26 0846 95 Nasal 3.0L Cannula 05/26 0543 97.6 85 20 114/60 93 05/26 0000 Nasal 3.0L Cannula 05/25 2213 97.7 96 20 122/60 97 Nasal 4.0L Cannula 05/25 1645 Nasal 3.0L Cannula 05/25 1605 97.8 98 18 118/56 93 Nasal 4.0L Cannula 05/25 1545 94 Nasal 3.0L Cannula 05/25 1507 97.8 100 18 132/64 96 Nasal 2.0L Cannula 05/25 1143 97.0 98 18 128/62 95 Nasal 2.0L Cannula 05/25 1100 97 Nasal 4.0L Cannula 05/25 1046 92 Nasal 4.0L Cannula 05/25 1020 97.3 101 18 146/78 89 Room Air Intake & Output 05/26 1600 05/26 0800 05/26 0000 Intake Total 1080 465 Output Total 175 Balance 1080 290 Intake, IV 600 225 Intake, Oral 480 240 Output, Urine 175 Last 48 Hrs of Labs/Elfego: Laboratory Tests 05/26/16 0715: Anion Gap 6, Estimated GFR > 60, BUN/Creatinine Ratio 28.0 H, Hemoglobin A1c Pending, Phosphorus 3.8, Magnesium 1.7, CBC w Diff MAN DIFF ORDERED, RBC 4.59 L , MCV 95.5 H, MCH 30.9, RDW 13.6, MPV 7.6, Gran % 93.5 H, Lymphocytes % 4.0 L , Monocytes % 2.5, Eosinophils % 0, Basophils % 0 L, Absolute Granulocytes 11.9 H, Segmented Neutrophils 87 H, Band Neutrophils 5, Absolute Lymphocytes 0.5 L , Lymphocytes 5 L, Monocytes 3, Absolute Monocytes 0.3, Absolute Eosinophils 0, Absolute Basophils 0, Platelet Estimate VERIFIED BY SMEAR, Normocytic RBCs VERIFIED, Normochromic RBCs VERIFIED, PUBS MCHC 32.4 L 05/25/16 1055: pH 7.38, pCO2 44, pO2 115 H, HCO3 25, ABG O2 Sat (Measured) 94.0 L, P-50 (Temp Corrected) N, Carboxyhemoglobin 3.5, O2 Concentration % 4L, Temperature 97.3, O2 Delivery Method N/C, Phlebotomy Draw Site RIGHT RADIAL 05/25/16 1044: Anion Gap 13, Estimated GFR > 60, BUN/Creatinine Ratio 20.0, Glucose 132 H, Calcium 9.2, Total Bilirubin 1.2, AST 29, ALT 38, Alkaline Phosphatase 80, Troponin I < 0.01, Total Protein 6.6, Albumin 3.5, Globulin 3.1, Albumin/ Globulin Ratio 1.1, PT 13.8 H, INR 1.32 H, APTT 34, CBC w Diff MAN DIFF ORDERED, RBC 5.01, MCV 93.7, MCH 31.4 H, RDW 13.9, MPV 7.5, Gran % 84.3 H, Lymphocytes % 7.9 L, Monocytes % 7.5, Eosinophils % 0.1, Basophils % 0.2, Absolute Granulocytes 12.6 H, Absolute Lymphocytes 1.2, Absolute Monocytes 1.1 H, Absolute Eosinophils 0, Absolute Basophils 0, Platelet Estimate VERIFIED BY SMEAR, Normocytic RBCs VERIFIED, Normochromic RBCs VERIFIED, PUBS MCHC 33.5 Assessment/Plan Impression/Plan: CXR IMPRESSION: Right middle lobe pneumonia. DICTATED BY: MAINE RAMIREZ MD DATE/TIME DICTATED:05/25/16 / 1158 OUTDOOR STUDIES PROFESSOR:ROSANNE Physical Exam General Appearance Alert, Oriented X3, Cooperative, No Acute Distress HEENT Atraumatic, PERRLA, EOMI, DRY MUCOUS MEMBRANES Neck Supple, No JVD, No thryomegaly, +2 Carotid Pulse wo Bruit, No LAD Cardiovascular Regular Rate, Normal S1, Normal S2, No Murmurs Lungs DECREASED BREATH SOUNDS B/L Abdomen Normal Bowel Sounds, Soft, No Tenderness Neurological Normal Speech, Strength at 5/5 X4 Ext, Normal Tone, Sensation Intact, Cranial Nerves 3-12 NL, Reflexes 2+ Extremities No Clubbing, No Cyanosis, Normal Pulses, No Tenderness/Swelling, 1+ B/L MAZIN IMPRESSION 75-year-old male with a past medical history of hyperlipidemia, COPD, non- insulin-dependent diabetes mellitus, coronary artery disease status post stent placements to RCA in 2004, left carotid endarterectomy in April 2005, history of supraventricular tachycardia presented to the ED with severe obstructive lung disease by pft with more than 50 pack yr smoking has * Acute hypoxemic and hypercarbic respiratory failure now improving due to right middle lobe community-acquired pneumonia and severe COPD exacerbation (Never intubated for copd or no recent steroid use, with sig baseline dyspnea) * History of significant smoking with very severe obstructive lung disease by PFTs seen in 2011 * Significant hypoxemia related to pneumonia and COPD exacerbation with probable underlying chronic hypoxemia. Patient also has underlying hypercarbia related to worsening obstructive lung disease * Chronic cor pulmonale with lower extremity edema * Severe peripheral vascular disease with previous carotid endarterectomy and previous history of ischemic heart disease with stents in the RCA in 2004 with previous history of SVT with no evidence suggestive of active heart failure RECOMMENDATION * Continue intravenous antibiotics * Await cultures and urinary antigen panel * Swab for influenza * Sputum culture if available * Continue nebulizer therapy with albuterol every 6 hours [id number] * Continue Spiriva * Can hold Symbicort until discharge * Continue other medications * Switch him to by mouth prednisone 60 mg tomorrow * Continue antiplatelet therapy am not sure the patient would require double antiplatelet therapy but we will have cardiology decide on this in the future probably can have his aspirin discontinued * Patient is on atenolol 50 twice a day can switch to metoprolol which is more cardioselective and if his blood pressure permits this could be reduced to 37.5 mg twice a day as he has sig wheezing * smoking cessation counseling done extensively patient is willing to stop Consult Acknowledgment - Thank you for your consult request.
[2016-05-26 14:31] VITALS: BP 112/60
[2016-05-26 22:30] VITALS: BP 102/50
--- NOTE | 2016-05-27 05:54 | PN- Housestaff ---
LAMBERT JACKMAN,PHYLLIS 05/27/16 0541: Subjective Follow-up For: Acute hypoxic respiratory failure Pneumonia Subjective: Patient seen and examined. He is seen sitting upright in bed resting comfortably maintained on supplemental oxygen via nasal cannula. He appears to be in no acute distress. He reports feeling better today than when he first was admitted, however states that he still does no feel comfortable without supplementary oxygen. Additionally he denies any headache, fever, chills, chest pain, shortness of breath, nausea, vomiting. diarrhea No Overnight events reported. Review of Systems Constitutional: Reports: see HPI. Objective Last 24 Hrs of Vital Signs/I&O Vital Signs Date Time Temp Pulse Resp B/P Pulse O2 O2 Flow FiO2 Ox Delivery Rate 05/27 1505 81 Room Air 05/27 1505 85 Nasal 2.0L Cannula 05/27 1504 95 Nasal 2.0L Cannula 05/27 1504 88 Nasal 3.0L Cannula 05/27 1503 92 Nasal 3.0L Cannula 05/27 1416 97.7 78 20 110/58 94 Nasal 3.0L Cannula 05/27 1151 94 Nasal 3.0L Cannula 05/27 0947 118/60 05/27 0800 95 Nasal 3.0L Cannula 05/27 0620 97.6 79 20 118/60 92 Nasal 3.0L Cannula 05/27 0000 Nasal 3.0L Cannula 05/26 2236 82 102/50 05/26 2230 98.0 82 20 102/50 95 Nasal 3.0L Cannula Intake & Output 05/27 1600 05/27 0800 05/27 0000 Intake Total 700 500 480 Output Total 450 Balance 700 500 30 Intake, IV 20 Intake, Oral 700 480 480 Number 1 Bowel Movements Output, Urine 450 Physical Exam General Appearance: Alert, Oriented X3, Cooperative, No Acute Distress Other Physical Findings: General - well developed, well nourished elderly man in no acute distress HEENT - NCAT, PERRL, EOMI, anicteric sclera CVS- S1, S2 w/o m/g/r Resp - CTA bilaterally GI - Soft, nontender, nondistended Neuro - Awake and alert, CN II -- XII grossly intact Current Medications: Current Medications Sig/Alisha Start time Last Medication Dose Route Stop Time Status Admin Acetaminophen 650 MG Q6P PRN 05/25 1315 DCD PO Acetaminophen/ 1 TAB Q6P PRN 05/25 1315 DCD Hydrocodone Bitart PO Albuterol Sulfate 3 ML Q4P PRN 05/25 1800 DCD 05/26 INH 1627 Aspirin Buffered 81 MG DAILY 05/26 1000 DCD 05/27 PO 0947 Atorvastatin Calcium 40 MG 1700 05/26 1700 DCD 05/26 PO 1659 Azithromycin 500 MG DAILY 05/26 1000 DCD 05/27 Dextrose/Water 250 ML IV 0945 Ceftriaxone Sodium 1,000 MG DAILY 05/26 1000 DCD 05/27 IV 0946 Clopidogrel Bisulfate 75 MG Q48H 05/26 1715 DCD 05/26 PO 1838 Diltiazem HCl 180 MG BID 05/25 2200 DCD 05/27 PO 0946 Guaifenesin 600 MG Q12 05/26 1000 DCD 05/27 PO 0947 Heparin Sodium 5,000 UNIT Q8 05/25 1400 DCD 05/25 (Porcine) SC 1509 Insulin Aspart 0 TIDAC 05/25 1700 DCD 05/27 SC 0945 Losartan Potassium 50 MG DAILY 05/26 1000 DCD 05/27 PO 0946 Methylprednisolone 40 MG Q12 05/26 2200 DC 05/26 IV 2236 Metoprolol Tartrate 37.5 MG BID 05/26 2200 DCD 05/27 PO 0947 Oxycodone/ 2 TAB Q6P PRN 05/25 1315 DCD Acetaminophen PO Patient Medication 1 ED .STK-MED ONE 05/27 1402 GA Teaching ED 05/27 1403 Prednisone 60 MG DAILY 05/27 1000 DCD 05/27 PO 0947 Tiotropium [place] 1 PUF DAILY 05/25 1400 DCD 05/27 INH 0945 Last 24 Hrs of Lab/Elfego Results Last 24 Hrs of Labs/Mics: Laboratory Tests 05/27/16 0635: Anion Gap 9, Estimated GFR > 60, BUN/Creatinine Ratio 38.0 H, CBC w Diff NO MAN DIFF REQ, RBC 4.64 L, MCV 95.3 H, MCH 31.3 H, RDW 14.0, MPV 7.7, Gran % 94.6 H, Lymphocytes % 3.0 L, Monocytes % 2.4, Eosinophils % 0, Basophils % 0 L, Absolute Granulocytes 14.2 H, Absolute Lymphocytes 0.5 L, Absolute Monocytes 0.4, Absolute Eosinophils 0, Absolute Basophils 0, PUBS MCHC 32.8 L Assessment/Plan Assessment: Patient is to be discharged to home today with home oxygen and oral antibiotics / steroids with instruction to follow up with Dr. Duncan as an outpatient. Acute hypoxemic respiratory failure / COPD Exacerbation With desaturation to approximately 78% and was placed on 4 L of oxygen via nasal cannula. Most likely secondary to pneumonia given radiological evidence, purulent productive cough, versus bronchitis versus COPD exacerbation versus CHF exacerbation unlikely as he does not seem to be volume overloaded on exam does not have bilateral crackles or and elevated JVD. -General Medicine -TRC with albuterol/ipratropium as needed -Supplemental oxygen, maintain >92%, wean as tolerated -Azithromycin 500mg IV Daily -Ceftriaxone 1g IV Daily -Prednisone 60mg PO Daily -Spiriva -Hold symbicort -Pulmonology consult F/U lower respiratory sample for culture - not sent Follow-up blood cultures 2 Follow-up urinary antigen for strep pneumo and Legionella - not sent Follow up rapid flu swab - not sent Pulmonary consult with Dr. Duncan has already been placed. F/U recs Coronary artery disease s/p stent -Aspirin 81 mg daily -Plavix 75 mg daily -Diltiazem 180 mg PO BID Hypertension -Atenolol 50 mg twice a day -Losartan 50 mg daily Hyperlipidemia-Lipitor 40 mg PO Daily Non-insulin dependent diabetes mellitus -Accuchecks TIDAC/HS -Hold oral hypoglycemics -Novolog Sliding Scale Insulin Pain Plan-Acetaminophen/[place] Diet- Diabetic Diet DVT PPx- subcutaneous heparin Code status- FULL CODE Problem List: 1. 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 Appreciate pulmonary follow -up. The patient wishes discharge today on home oxygen and with nebulizer machine. Will arrange. Will follow-up with Dr. Duncan as outpatient.
[2016-05-27 06:20] VITALS: BP 118/60
[2016-05-27 08:00] LABS: ABSOLUTE BASOPHIL COUNT 0 /CUMM (0.0-0.2); ABSOLUTE EOSINOPHIL COUNT 0 /CUMM (0.0-0.7); ABSOLUTE GRANULOCYTE CT 14.2 /CUMM (1.4-6.5); ABSOLUTE LYMPH COUNT 0.5 /CUMM (1.2-3.4); ABSOLUTE MONOCYTE COUNT 0.4 /CUMM (0.10-0.60); BASOPHIL % 0 % (0.0-2.0); EOSINOPHIL % 0 % (0-5); GRANULOCYTE % 94.6 % (42.2-75.2); HEMATOCRIT 44.2 % (42-52); MEAN CORPUSCULAR HGB 31.3 PG (27.0-31.0); MEAN CORPUSCULAR HGB CONC 32.8 G/DL (33.0-37.0); MEAN CORPUSCULAR VOLUME 95.3 FL (80.0-94.0); MEAN PLATELET VOLUME 7.7 FL (7.4-10.4); PLATELET COUNT 249 /CUMM (130-400); RED BLOOD CELL CT 4.64 /CUMM (4.70-6.10)
[2016-05-27 08:48] LABS: WHITE BLOOD CELL COUNT 15.1 /CUMM (4.8-10.8)
--- NOTE | 2016-05-27 10:14 | PN- Pulmonary ---
Subjective HPI/Critical Care Issues: DOing well afebrile coughing less No sig sputum or wheezing Objective Current Medications: Current Medications Sig/Alisha Start time Last Medication Dose Route Stop Time Status Admin Acetaminophen 650 MG Q6P PRN 05/25 1315 AC PO Acetaminophen/ 1 TAB Q6P PRN 05/25 1315 AC Hydrocodone Bitart PO Albuterol Sulfate 3 ML Q4P PRN 05/25 1800 AC 05/26 INH 1627 Aspirin Buffered 81 MG DAILY 05/26 1000 AC 05/27 PO 0947 Atenolol 50 MG BID 05/25 2200 DC 05/26 PO 1027 Atorvastatin Calcium 40 MG 1700 05/26 1700 AC 05/26 PO 1659 Azithromycin 500 MG DAILY 05/26 1000 AC 05/27 Dextrose/Water 250 ML IV 0945 Budesonide/ 2 PUF BID 05/25 1359 DC 05/26 Formoterol Fumarate INH 1028 Ceftriaxone Sodium 1,000 MG DAILY 05/26 1000 AC 05/27 IV 0946 Clopidogrel Bisulfate 75 MG Q48 05/27 1000 DC PO Clopidogrel Bisulfate 75 MG Q48H 05/26 1715 AC 05/26 PO 1838 Diltiazem HCl 180 MG BID 05/25 2200 AC 05/27 PO 0946 Guaifenesin 600 MG Q12 05/26 1000 AC 05/27 PO 0947 Heparin Sodium 5,000 UNIT Q8 05/25 1400 AC 05/25 (Porcine) SC 1509 Insulin Aspart 0 TIDAC 05/25 1700 AC 05/27 SC 0945 Losartan Potassium 50 MG DAILY 05/26 1000 AC 05/27 PO 0946 Methylprednisolone 40 MG Q12 05/26 2200 DC 05/26 IV 2236 Metoprolol Tartrate 37.5 MG BID 05/26 2200 AC 05/27 PO 0947 Oxycodone/ 2 TAB Q6P PRN 05/25 1315 AC Acetaminophen PO Patient Medication 1 UNIT 1700 05/26 1700 DC 05/26 Teaching ED 05/26 1701 1839 Prednisone 60 MG DAILY 05/27 1000 AC 05/27 PO 0947 Tiotropium [place] 1 PUF DAILY 05/25 1400 AC 05/27 INH 0945 Vital Signs & I&O Last 24 Hrs of Vitals and I&O: Vital Signs Date Time Temp Pulse Resp B/P Pulse O2 O2 Flow FiO2 Ox Delivery Rate 05/27 0947 118/60 05/27 0620 97.6 79 20 118/60 92 Nasal 3.0L Cannula 05/27 0000 Nasal 3.0L Cannula 05/26 2236 82 102/50 05/26 2230 98.0 82 20 102/50 95 Nasal 3.0L Cannula 05/26 1630 97 Nasal 3.0L Cannula 05/26 1431 98.3 79 20 112/60 95 Nasal 3.0L Cannula Intake & Output 05/27 1600 05/27 0800 05/27 0000 Intake Total 500 480 Output Total 450 Balance 500 30 Intake, IV 20 Intake, Oral 480 480 Output, Urine 450 Impression/Plan Impression/Plan Impression/Plan: CXR IMPRESSION: Right middle lobe pneumonia. DICTATED BY: MAINE RAMIREZ MD DATE/TIME DICTATED:05/25/161157 AGENCY CASHIER:ROSANNE Physical Exam General Appearance Alert, Oriented X3, Cooperative, No Acute Distress HEENT Atraumatic, PERRLA, EOMI, DRY MUCOUS MEMBRANES Neck Supple, No JVD, No thryomegaly, +2 Carotid Pulse wo Bruit, No LAD Cardiovascular Regular Rate, Normal S1, Normal S2, No Murmurs Lungs DECREASED BREATH SOUNDS B/L Abdomen Normal Bowel Sounds, Soft, No Tenderness Neurological Normal Speech, Strength at 5/5 X4 Ext, Normal Tone, Sensation Intact, Cranial Nerves 3-12 NL, Reflexes 2+ Extremities No Clubbing, No Cyanosis, Normal Pulses, No Tenderness/Swelling, 1+ B/L MAZIN IMPRESSION 75-year-old male with a past medical history of hyperlipidemia, COPD, non- insulin-dependent diabetes mellitus, coronary artery disease status post stent placements to RCA in 2004, left carotid endarterectomy in April 2005, history of supraventricular tachycardia presented to the ED with severe obstructive lung disease by pft with more than 50 pack yr smoking has * Resoving Acute hypoxemic and hypercarbic respiratory failure now improving due to right middle lobe community-acquired pneumonia and severe COPD exacerbation ( Never intubated for copd or no recent steroid use, with sig baseline dyspnea) * History of significant smoking with very severe obstructive lung disease by PFTs seen in 2011 * Significant hypoxemia related to pneumonia and COPD exacerbation with probable underlying chronic hypoxemia. Patient also has underlying hypercarbia related to worsening obstructive lung disease * Chronic cor pulmonale with lower extremity edema * Severe peripheral vascular disease with previous carotid endarterectomy and previous history of ischemic heart disease with stents in the RCA in 2004 with previous history of SVT with no evidence suggestive of active heart failure RECOMMENDATION * Can change abx to moxi or levo daily for a total abx of seven to ten days * Pt needs home oxygen and a nebulizer machine with albuterol neb solution to use prn upon dc * Continue Spiriva * Can hold Symbicort until discharge and resume * Continue other medications * Prednisone 60 mg daily and wean in 8 days * Continue antiplatelet therapy am not sure the patient would require double antiplatelet therapy but we will have cardiology decide on this in the future probably can have his aspirin discontinued * Patient is on atenolol 50 twice a day can switch to metoprolol which is more cardioselective and if his blood pressure permits this could be reduced to 37.5 mg twice a day as he has sig wheezing * smoking cessation counseling done extensively patient is willing to stop Ok to dc soon
[2016-05-27] MEDS ORDERED: METOPROLOL SUCC25 M1 PO (13:58)
[2016-05-27] MEDS ORDERED: AVELOX400 M1 PO (13:58)
[2016-05-27] MEDS ORDERED: PREDNISONE20 M1 PO (13:58)
--- NOTE | 2016-05-27 14:00 | Patient Discharge Instructions ---
Discharge Instructions General Discharge Information Special Instructions: Take Moxifloxacin and Prednisone as directed. Stop taking Atenolol, start taking Metoprolol as directed. Follow up with your primary care provider and Dr. Duncan after discharge. Acute Coronary Syndrome Inclusion Criteria At DC or during hospital stay patient has or had the following: ACS DIAGNOSIS No Discharge Core Measures Meds if any: Prescribed or Continued at Discharge Meds if any: NOT Prescribed or Continued at Discharge Congestive Heart Failure Inclusion Criteria At DC or during hospital stay patient has or had the following: CHF DIAGNOSIS No Discharge Core Measures Meds if any: Prescribed or Continued at Discharge Meds if any: NOT Prescribed or Continued at Discharge Cerebrovascular accident Inclusion Criteria At DC or during hospital stay patient has or had the following: CVA/TIA Diagnosis No Discharge Core Measures Meds if any: Prescribed or Continued at Discharge Meds if any: NOT Prescribed or Continued at Discharge Venous thromboembolism Inclusion Criteria VTE Diagnosis No VTE Type NONE VTE Confirmed by (Test) NONE Discharge Core Measures - Per Current guidelines, there needs to be overlap - treatment for the first 5 days of Warfarin therapy. - If discharged on Warfarin prior to 5 days of - overlap therapy, the patient will need to be - assessed for post discharge needs including - *Post discharge parental anticoagulation - *Warfarin and/or parental anticoagulation education - *Follow up date to check INR post discharge At least 5 days overlap therapy as Inpatient No Meds if any: Prescribed or Continued at Discharge Note: Overlap Therapy is Warfarin and Anticoagulant Meds if any: NOT Prescribed or Continued at Discharge
[2016-05-27 14:16] VITALS: BP 110/58
--- NOTE | 2016-05-31 19:47 | Discharge Summary ---
Visit Information Visit Dates Admission Date: 05/25/16 Discharge Date: 05/27/16 Hospital Course Course Attending Physician: JAVON ELLER MD Primary Care Physician: MARY BETH JACKMAN,DARREL Vazquez Consulting Request: Consulting Specialty: Pulmonary Disease Hospital Course: 76 year old man man with significant past medical history of COPD not on home oxygen and coronary artery disease s/p PCI with stent (2004) seen for evaluation of worsening shortness of breath and productive cough. According to the patient he was [facility] until 3 weeks ago when he started to experience some head cold surface symptoms and started experiencing shortness of breath which she stayed worsened within the past 2 days to the point that he is having increasingly difficulty ambulating even a few feet without getting dyspneic. He denies any chest pain, fever, any change in his diet recently, but does endorse history of sick contacts saying that he went to a kid's birthday constitution party and he may have caught it from there. He denies any orthopnea, PND, recent history of prolonged travel. He does admit to having mild ankle swelling as well as endorses bringing up purulent phlegm that he describes is yellowish- green in color. He does have productive cough at baseline, the frequency of which has not changed but the color the phlegm has. Apparently he was diagnosed with COPD about a year and a half ago by his primary care physician and was asked to follow with Dr. Duncan however he never saw the floor care technician as an outpatient. He follows up with Dr. Alvarado for his heart issues and last saw him before [place] apparently underwent a stress test a couple of years ago which reportedly is normal. He does admit to a runny nose, denies sore throat but does endorse sneezing. Of note he is a current smoker smoking half pack per day and has been doing so since the age of 16 years. No history of birds, pets or any occupational exposure to inhalants. PMHx: COPD, NIDDM, CAD s/p PCI with stent 2004, Left [facility] ED Course: -Vitals: Temp 97.0-97.3, HR 98-101, RR 18, BP 128-146/62-78, O2 89-97% on 4.0L via nasal cannula -Significant Labs: WBC 15.0, Hgb/Hct 15.7/46.9, ABG: pH 7.38, CO2 44, O2 115, HCO3 25, Troponin <0.01 -Studies: EKG NSR HR [address]-Twave changes, CXR - right middle lobe pneumonia -Inverventions:albuterol, Atrovent, Rocephin 1g IV 1, Solu-Medrol 125 mg IV 1 and azithromycin Acute Hypoxic Respiratory Failure / COPD Exacerbation Patient admitted to the general medicine floor for further evaluation and care. Patient was continued on intravenous antibiotics and steroids with supplemental oxygen and total respiratory. Pulmon consult was placed. Patient was discharged on oral antibiotics to complete a 7 day total course and a prednisone taper. Blood/Sputum/Urine cultures remain negative, Strep/Legionella/Influenza negative. Coronary Artery Disease Atenolo switched to Metoprolol. Allergies: Coded Allergies: No Known Allergies (05/25/16) Significant Procedures: EXAM TYPE: RAD - XRY-CHEST XRAY, PA AND LATERAL IMPRESSION: Right middle lobe pneumonia. Disposition Summary Disposition Principal Diagnosis: Acute Hypoxic respiratory failure Additional Diagnosis: COPD exacerbation Discharge Disposition: home or self care Discharge Instructions General Discharge Information Code Status: Full Code Patient's Diet: Diabetic Diet Patient's Activity: Return to full activity as tolerated Follow-Up Instructions/Appts: Take Moxifloxacin and Prednisone as directed. Stop taking Atenolol, start taking Metoprolol as directed. Follow up with your primary care provider and Dr. Duncan after discharge. Medications at Discharge Discharge Medications: Stop taking the following medications: Atenolol (Atenolol) 50 MG TABLET ORAL TWICE DAILY Qty = 180 Continue taking these medications: Glipizide (Glipizide ER) 5 MG TAB.ER.24 1 Tablet ORAL DAILY Qty = 90 Comments: NOT GIVEN Clopidogrel Bisulfate (Clopidogrel) 75 MG TABLET 1 Tablet ORAL EVERY 48 HOURS (Every 2 days) Qty = 45 Comments: LAST GIVEN 05/26/16 @ 1500 Irbesartan (Irbesartan) 300 MG TABLET 1 Tablet ORAL DAILY Qty = 90 Atorvastatin Calcium (Atorvastatin Calcium) 40 MG TABLET 1 Tablet ORAL DAILY Qty = 90 Comments: LAST GIVEN 05/27/16 @ 1000 Metformin HCl (Metformin HCl) 1,000 MG TABLET 1 Tablet ORAL TWICE DAILY Qty = 180 Diltiazem HCl (Diltiazem 24HR ER) 180 MG CAP.ER.24H 1 Capsule ORAL TWICE DAILY Qty = 180 Comments: LAST GIVEN 05/27/16 @ 1000 Budesonide/Formoterol Fumarate (Symbicort 160-4.5 Mcg Inhaler) 160 MCG-4.5 MCG/ ACTUATION HFA.AER.AD 2 Puff Inhale through mouth TWICE DAILY Qty = 10 Comments: LAST GIVEN 05/26/16 @ 1000 Tiotropium [place] (Spiriva) 18 MCG CAP.W.DEV 1 Capsule Inhale through mouth DAILY Qty = 30 Comments: LAST GIVEN 05/27/16 @ 1000 Aspirin (Ecotrin*) 81 MG TABLET.DR 1 Tablet ORAL DAILY Comments: LAST GIVEN 05/27/16 @ 1000 Start taking the following new medications: Prednisone (Prednisone) 20 MG TABLET 3 Tablet ORAL DAILY Qty = 21 No Refills Instructions: TAKE 3 TABLETS BY MOUTH ONCE A DAY FOR SEVEN DAYS STARTING 05/28/16 Comments: LAST GIVEN 05/27/16 @ 1000 Moxifloxacin HCl (Avelox) 400 MG TABLET 1 Tablet ORAL DAILY Qty = 7 No Refills Comments: NOT GIVEN Metoprolol Succinate (Metoprolol Succinate) 25 MG TAB 1.5 Tablet ORAL TWICE DAILY Qty = 45 No Refills Comments: LAST GIVEN 05/27/16 @ 1000 Copies To: MARY BETH JACKMAN,DARREL Vazquez; REHAN JACKMAN,SONIA Dailey; KAREN JACKMAN,STEWART Bahena Attending MD Review Statement Documenting Attending: JAVON ELLER MD Other Findings: The patient was seen and agree with the plan of care upon discharge.
== END 2016-05-27 16:35 | DRG 190 ==
LOC: ENRESERVDT → ENRESERVTM → ERH 10:20 → 2NB 13:39 → ERHI 13:39 → 2NB 15:45
PROVIDERS: Internal Medicine Infectious Disease; Physician Assistant; ADMIT Internal Medicine
DX: J44.0 Chronic obstructive pulmonary disease with (acute) lower respiratory infection (principal); J96.02 Acute respiratory failure with hypercapnia; J96.01 Acute respiratory failure with hypoxia; J18.9 Pneumonia, unspecified organism; I27.81 Cor pulmonale (chronic); E87.1 Hypo-osmolality and hyponatremia; E11.9 Type 2 diabetes mellitus without complications; E78.5 Hyperlipidemia, unspecified; I25.10 Atherosclerotic heart disease of native coronary artery without angina pectoris; I10 Essential (primary) hypertension; F17.210 Nicotine dependence, cigarettes, uncomplicated; Z79.84 Long term (current) use of oral hypoglycemic drugs; J44.1 Chronic obstructive pulmonary disease with (acute) exacerbation; I73.9 Peripheral vascular disease, unspecified
CPT/HCPCS: 2NSBP; 36415; 82436; 87040; 87070; 87449; 87450; 87804; 87804-59; 93005; 93010; 96374; 99291; J0456; J0696; J1644; J2920; J2930; J3490; J7060

== ENCOUNTER 2016-06-20 20:22 | Emergency (ER) | payer OTHER, MEDICARE ==
[~2016-06-20 20:22] MED LIST: ASPIRIN EC81 M1 PO; ATENOLOL50 M1 PO; ATORVASTATIN CA40 M1 PO; AVELOX400 M1 PO; CLOPIDOGREL75 M1 PO; DILTIAZEM 24HR180 MG PO; GLIPIZIDE ER5 M1 PO; IRBESARTAN300 M1 PO; METFORMIN HCL1000 M1 PO; METOPROLOL SUCC25 M1 PO; PREDNISONE20 M1 PO; SPIRIVA18 MCG INH; SYMBICORT 16010.2 GM INH
--- NOTE | 2016-06-20 22:04 | ED CARDIAC/CP/PALPITATIONS ---
History of Present Illness General Chief Complaint: Palpitations Stated Complaint: FEELS HEART IS RACING Source: patient, family, old records Exam Limitations: no limitations Vital Signs & Intake/Output Vital Signs & Intake/Output Vital Signs Date Time Temp Pulse Resp B/P Pulse O2 O2 Flow FiO2 Ox Delivery Rate 06/21 2107 91 Nasal 3.0L Cannula 06/20 2100 99.1 112 20 147/64 91 Nasal 3.0L Cannula Allergies Coded Allergies: No Known Allergies (05/25/16) Reconcile Medications Aspirin (Ecotrin*) 81 MG TABLET.DR 1 TAB PO DAILY HEART HEALTH (Reported) Atorvastatin Calcium 40 MG TABLET 1 TAB PO DAILY CHOLESTEROL (Reported) Budesonide/Formoterol Fumarate (Symbicort 160-4.5 Mcg Inhaler) 160 MCG-4.5 MCG/ ACTUATION HFA.AER.AD 2 PUF INH BID BREATHING PROBLEMS (Reported) Clopidogrel Bisulfate (Clopidogrel) 75 MG TABLET 1 TAB PO Q48 BLOOD THINNER ( Reported) Diltiazem HCl (Diltiazem 24HR ER) 180 MG CAP.ER.24H 1 CAP PO BID HEART ( Reported) Glipizide (Glipizide ER) 5 MG TAB.ER.24 1 TAB PO DAILY DM (Reported) Irbesartan 300 MG TABLET 1 TAB PO DAILY HEART (Reported) Metformin HCl 1,000 MG TABLET 1 TAB PO BID DM (Reported) Metoprolol Succinate 25 MG TAB 1.5 TAB PO BID hypertension Moxifloxacin HCl (Avelox) 400 MG TABLET 1 TAB PO DAILY Pneumonia Prednisone 20 MG TABLET 3 TAB PO DAILY COPD TAKE 3 TABLETS BY MOUTH ONCE A DAY FOR SEVEN DAYS STARTING 05/28/16 Tiotropium [place] (Spiriva) 18 MCG CAP.W.DEV 1 CAP INH DAILY BREATHING PROBLEMS (Reported) Core Measure Meds Pre-Hospital aspirin Triage Note: PER PT WHO IS VERY AGITATED HEART BEAT TOO QUICK, 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 PLACED ON BYSTOLIC 10 MG TOOK 1ST DOSE TODAY AT 12 NOON NOTED HR 114. SO CAME IN Triage Nurses Notes Reviewed? yes Onset: Just prior to arrival Duration: hour(s):, constant, continues in ED Timing: recent history Quality/Severity: moderate Radiation: no radiation Activities at Onset: none Prior Chest Pain/Card Workup: echocardiography, stress test Nitro Today/Relief: no nitro taken today Aspirin Today: 81 mg x 1, provided at home HPI: May 27 patient was discharged for pneumonia with atenolol changed to metoprolol. 1 day prior to admission cardiology changed metoprolol to bysystolic. Prior to admission while checking his oxygen saturation he was noted to be tachycardic without symptoms. He denies fever chills nausea vomiting diarrhea abdominal pain chest pain shortness of breath headache dysuria rash bleeding. Past History Travel History Traveled to [place] past 21 day No Medical History Any Pertinent Medical History? see below for history Neurological: NONE EENT: NONE Cardiovascular: hypertension, CARDIAC STENT HIGH CHOLESTEROL AFIB PER PT, "I THINK" Respiratory: COPD, O2 DEPENDENT Gastrointestinal: NONE Hepatic: NONE Renal: NONE Musculoskeletal: NONE Psychiatric: NONE Endocrine: diabetes Blood Disorders: NONE Cancer(s): NONE COSMETOLOGY EDUCATOR/Reproductive: NONE History of MRSA: No History of VRE: No History of CDIFF: No Influenza Vaccine: 09/22/15 Surgical History Surgical History: tonsillectimy, mastoidectomy Psychosocial History Who do you live with Patient/Self What is your primary language Estonian Tobacco Use: Never used Family History Family History, If Any: Relation not specified for: *No pertinent family history Hx Contributory? No Review of Systems Review of Systems Constitutional: Reports: no symptoms. EENTM: Reports: no symptoms. Respiratory: Reports: no symptoms. Cardiovascular: Reports: see HPI. GI: Reports: no symptoms. Genitourinary: Reports: no symptoms. Musculoskeletal: Reports: no symptoms. Skin: Reports: no symptoms. Neurological/Psychological: Reports: no symptoms. Hematologic/Endocrine: Reports: no symptoms. Immunologic/Allergic: Reports: no symptoms. All Other Systems: Reviewed and Negative Physical Exam Physical Exam General Appearance: well developed/nourished, alert, awake, anxious, comfortable Head: atraumatic, normal appearance Eyes: Bilateral: normal appearance, PERRL, EOMI. Ears, Nose, Throat: normal pharynx, normal ENT inspection Neck: normal inspection, supple, full range of motion Respiratory: chest non-tender, no respiratory distress, quiet respiration, lungs clear, decreased breath sounds Cardiovascular: regular rate/rhythm, normal peripheral pulses, tachycardia, norml femoral pulses equa Peripheral Pulses: 4+ carotid (R), 4+ carotid (L) Gastrointestinal: normal bowel sounds, soft, non-tender, no organomegaly Back: normal inspection, normal range of motion Extremities: normal inspection, normal capillary refill, normal range of motion, no edema Neurologic/Psych: no motor/sensory deficits, awake, alert, oriented x 3, normal gait, normal mood/affect, 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 Skin: intact, normal color, warm/dry Lymphatic: no anterior cervical divina Core Measures ACS in differential dx? No Severe Sepsis Present: No Septic Shock Present: No Progress Differential Diagnosis: PSVT Plan of Care: Orders Procedure Date/time Status EKG 06/20 2022 Active Initial ED EKG: normal axis, normal intervals, normal p-waves, normal QRS complex, rate (tachycardia), no ST T wave changes Prior EKG: unchanged Rhythm Strip: sinus tachycardia Comments: Patient does not want to take bysystolic any more. He prefers to resume atenolol. Departure Departure Time of Disposition: 2202 Disposition: HOME OR SELF CARE Condition: Stable Clinical Impression Primary Impression: Tachycardia Referrals: MARY BETH JACKMAN,DARREL Vazquez (PCP/Family) REHAN JACKMAN,SONIA JONES MD,STEWART Bahena Additional Instructions: Stop Bystolic. Resume Atenolol. Departure Forms: Customer Survey General Discharge Information Critical Care Note Critical Care Note Critical Care Time: non-applicable
[2016-06-20 22:31] VITALS: BP 145/62
== END 2016-06-20 22:32 ==
LOC: ERH 20:22
DX: R00.0 Tachycardia, unspecified (principal)
CPT/HCPCS: 93005; 93010

== ENCOUNTER 2016-08-26 21:05 | Inpatient (IN) | payer OTHER, MEDICARE ==
[~2016-08-26] VITALS: Ht 172.7 cm; Wt 71.7 kg
--- NOTE | 2016-08-26 21:23 | NUR ---
76 YEAR OLD MALE TO ER WITH COMPLAINTS OF INCREASED SOB X 2 DAYS, PT IS O2 DEPENDENT 3L AND O2 SAT AT TRIAGE 87 %. PT WAS IN HOSPITAL 6 WEEKS AGO WITH PNA, COMPLAINS OF COUGH PRODUCTIVE OF GREEN SPUTUM. DENIES CP.
--- NOTE | 2016-08-26 21:41 | ED DYSPNEA/ASTHMA COMPLAINT ---
History of Present Illness General Chief Complaint: General Adult Stated Complaint: PT HAS A PROBLEM BREATHING AND A BAD COUGH Source: patient, family, old records Exam Limitations: no limitations Vital Signs & Intake/Output Vital Signs & Intake/Output Vital Signs Date Time Temp Pulse Resp B/P B/P Pulse O2 O2 Flow FiO2 Mean Ox Delivery Rate 08/27 0228 102/53 08/27 0226 97 18 102/53 95 Nasal 4.0L Cannula 08/26 2347 98.6 97 20 127/59 95 Nasal 4.0L Cannula 08/26 2334 97 Nasal 4.0L Cannula 08/26 2208 94 Nasal 4.0L Cannula 08/26 2120 98.4 96 22 149/76 87 Nasal 3.0L Cannula ED Intake and Output 08/27 0000 08/26 1200 Intake Total 350 Output Total Balance 350 Intake, IV 350 Patient 158 lb Weight Allergies Coded Allergies: No Known Allergies (05/25/16) Reconcile Medications Albuterol Sulfate (Ventolin Hfa) 90 MCG HFA.AER.AD 2 PUF INH PRN RESPIRATORY (Reported) Aspirin (Ecotrin*) 81 MG TABLET.DR 1 TAB PO DAILY HEART HEALTH (Reported) Atenolol 50 MG TABLET 1 TAB PO BID HEART (Reported) Atorvastatin Calcium 40 MG TABLET 1 TAB PO DAILY CHOLESTEROL (Reported) Azithromycin 500 MG TABLET 1 TAB PO DAILY COPD . Budesonide/Formoterol Fumarate (Symbicort 160-4.5 Mcg Inhaler) 160 MCG-4.5 MCG/ ACTUATION HFA.AER.AD 2 PUF INH BID BREATHING PROBLEMS (Reported) Clopidogrel Bisulfate (Clopidogrel) 75 MG TABLET 1 TAB PO Q48 BLOOD THINNER ( Reported) Diltiazem HCl (Diltiazem 24HR ER) 180 MG CAP.ER.24H 1 CAP PO BID HEART ( Reported) Glipizide (Glipizide ER) 5 MG TAB.ER.24 1 TAB PO DAILY DM (Reported) Irbesartan 300 MG TABLET 1 TAB PO DAILY HEART (Reported) Metformin HCl 1,000 MG TABLET 1 TAB PO BID DM (Reported) Multivit-Min/FA/Lycopen/Lutein (Centrum Silver Men Tablet) 300 MCG-600 MCG-300 MCG TABLET 1 TAB PO DAILY SUPPLEMENT (Reported) Prednisone 10 MG TABLET 1 TAB PO DAILY COPD Then Stop Tiotropium [place] (Spiriva) 18 MCG CAP.W.DEV 1 CAP INH DAILY BREATHING PROBLEMS (Reported) Triage Note: 76 YEAR OLD MALE TO ER WITH COMPLAINTS OF INCREASED SOB X 2 DAYS, PT IS O2 DEPENDENT 3L AND O2 SAT AT TRIAGE 87 %. PT WAS IN HOSPITAL 6 WEEKS AGO WITH PNA, COMPLAINS OF COUGH PRODUCTIVE OF GREEN SPUTUM. DENIES CP. Triage Nurses Notes Reviewed? yes Onset: Abrupt Duration: day(s): (FEW) Timing: recent history Severity: moderate, severe HPI: Is a 76, male with history of COPD on 3 L of home oxygen who presents here with chief complaint of 2 days worsening progressive shortness of breath, cough without thick yellow sputum. He states that he cannot get up from bed even with his oxygen without getting very winded. Denies any chest pain. Denies any fever or chills. He has a history of A. fib been compliant with his medications. Patient was admitted to the hospital in May with pneumonia. He was placed on IV antibiotics and then sent home on oral and bradycardic. He had a CAT scan done last month that showed incomplete resolution of the pneumonia and was put on another course of anti-medics per Dr. Jones. He was fine until 2 days ago when his current symptoms started. (TOMI JACKMAN,ROCHELLE) Past History Travel History Traveled to [place] past 21 day No Medical History Any Pertinent Medical History? 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 No (ROCHELLE KRISHNA MD) Review of Systems Review of Systems Constitutional: Denies: chills, fever. EENTM: Reports: no symptoms. Respiratory: Reports: cough, short of breath, sputum production (GREEN THICK). Cardiovascular: Denies: chest pain. GI: Denies: abdominal pain. Genitourinary: Reports: no symptoms. Musculoskeletal: Reports: no symptoms. Skin: Reports: no symptoms. Neurological/Psychological: Reports: no symptoms. Hematologic/Endocrine: Denies: bruising, bleeding, polyuria, polydipsia. Immunologic/Allergic: Denies: splenectomy. All Other Systems: Reviewed and Negative (TOMI JACKMAN,ROCHELLE) Physical Exam Physical Exam General Appearance: well developed/nourished, alert, awake Head: atraumatic, normal appearance Eyes: Bilateral: normal appearance, PERRL, EOMI. Ears, Nose, Throat: normal pharynx, normal ENT inspection, hearing grossly normal Neck: normal inspection, supple, full range of motion Respiratory: decreased breath sounds, accessory muscle use, respiratory distress Cardiovascular: tachycardia Peripheral Pulses: 1+ radial (R), 1+ radial (L) Gastrointestinal: normal bowel sounds, soft, non-tender Core Measures ACS in differential dx? No Severe Sepsis Present: No Septic Shock Present: No (TOMI JACKMAN,ROCHELLE) Progress Differential Diagnosis: CHF, COPD Plan of Care: Orders Procedure Date/time Status Consistent Carbohydrate 3 08/27 B Active CBC WITHOUT DIFFERENTIAL 08/27 0600 Active BASIC ELECTROLYTES PLUS BUN&CR 08/27 0600 Active INCENTIVE SPIROMETRY TRX (GEN) 08/27 0519 Active Pathway - chart 08/27 0416 Active Pathway - chart 08/27 0138 Active TRC EVALUATION (GEN) 08/27 UNK Active House Staff 08/27 UNK Active VTE Mechanical Prophylaxis 08/27 UNK Active FingerStick- Glucose 08/27 UNK Active Patient Data 08/26 2356 Active ED Holding Orders 08/26 2341 Active Admit to inpatient 08/26 2341 Active Vital Signs 08/26 2341 Active Code Status 08/26 2341 Active Intake & Output 08/26 2333 Active RT ED ORDERS 08/26 2144 Active LOWER RESPIRATORY CULTURE 08/26 2144 Active BLOOD CULTURE 08/26 2141 Active TROPONIN LEVEL 08/26 2141 Complete PARTIAL THROMBOPLASTIN TIME 08/26 2141 Complete PROTHROMBIN TIME 08/26 2141 Complete LACTIC ACID 08/26 2141 Complete COMPREHENSIVE METABOLIC PANEL 08/26 2141 Complete CBC WITHOUT DIFFERENTIAL 08/26 214 Complete B-TYPE NATRIURETIC PEP (BNP) 08/26 2141 Complete EKG 08/26 2141 Active Current Medications Sig/Alisha Start time Last Medication Dose Stop Time Status Admin Aspirin Buffered 81 MG DAILY 08/27 1000 UNVr (Ecotrin) Atorvastatin Calcium 40 MG DAILY 08/27 1000 UNVr (Lipitor) Azithromycin 500 MG DAILY 08/27 1000 UNVr (Zithromax) 08/30 1059 Sodium Chloride 250 ML (Normal Saline 0.9%) Budesonide/ 2 PUF BID 08/27 1000 UNVr Formoterol Fumarate (Symbicort) Clopidogrel Bisulfate 75 MG Q48 08/27 1000 UNVr (Plavix) Enoxaparin Sodium 40 MG DAILY 08/27 1000 UNVr (Lovenox) Guaifenesin 600 MG Q12 08/27 1000 UNVr (Mucinex) Losartan Potassium 100 MG DAILY 08/27 1000 UNVr (Cozaar) Tiotropium [place] 1 PUF DAILY 08/27 1000 UNVr (Spiriva) Insulin Aspart 0 TIDAC 08/27 0800 UNVr (NovoLOG) Methylprednisolone 40 MG Q8 08/27 0600 UNVr (Solumedrol) 08/30 2201 Acetaminophen 650 MG Q6P PRN 08/27 0415 UNVr (Tylenol) Acetaminophen 1,000 MG Q6P PRN 08/27 0415 UNVr (Ofirmev) Morphine Sulfate 1 MG Q4P PRN 08/27 0415 UNVr (Morphine) Albuterol Sulfate 2 PUF Q6-PRN PRN 08/27 0130 UNVr (Ventolin) Diltiazem HCl 180 MG BID 08/27 0130 UNVr (Cardizem CD) Atenolol 50 MG BID 08/27 0126 UNVr (Tenormin) Laboratory Tests 08/27/16 0041: Lactic Acid Cancelled 08/26/16 2315: Anion Gap 10, Estimated GFR > 60, BUN/Creatinine Ratio 24.0, Glucose 125 H, Lactic Acid 1.1, Calcium 8.7, Total Bilirubin 1.2, AST 20, ALT 40, Alkaline Phosphatase 70, Troponin I < 0.01, Wnk-Q-Cdrnypjyntl Pept 327 H, Total Protein 6.5, Albumin 3.7, Globulin 2.8, Albumin/Globulin Ratio 1.3, PT 13.5 H, INR 1.29 H, APTT 34, CBC w Diff NO MAN DIFF REQ, RBC 3.93 L, MCV 95.4 H, MCH 31.0, RDW 14.6 H, MPV 7.4, Gran % 81.5 H, Lymphocytes % 9.1 L, Monocytes % 7.9, Eosinophils % 1.4, Basophils % 0.1, Absolute Granulocytes 9.5 H, Absolute Lymphocytes 1.1 L, Absolute Monocytes 0.9 H, Absolute Eosinophils 0.2, Absolute Basophils 0, PUBS MCHC 32.5 L 08/26/162143: Rtm-S-Talcvyvieqz Pept Cancelled Microbiology 08/26 2314 BLOOD: Blood Culture - RECD 08/26 2309 BLOOD: Blood Culture - RECD 08/26 2300 BLOOD: Blood Culture - CAN Cancelled: Cancelled via OE: DUPLICATE 08/26 2300 BLOOD: Blood Culture - CAN Cancelled: Cancelled via OE: DUPLICATE 08/27 2143 LOWER RESP: Respiratory Culture - COLB 08/27 2143 LOWER RESP: Gram Stain - COLB Diagnostic Imaging: Viewed by Me: Radiology Read. Discussed w/RAD: Radiology Read. CXR Impression: PATIENT: ANDREW DIETZ PRESENT AGE: 76 PATIENT ACCOUNT NO: [id number] : 40 LOCATION: [facility] ORDERING PHYSICIAN: ROCHELLE KRISHNA MD SERVICE DATE: 08/26/16 EXAM TYPE: RAD - XRY-CHEST XRAY , PA AND LATERAL EXAMINATION: XR CHEST CLINICAL INFORMATION: Shortness of breath. Cough. COMPARISON: Chest x-ray 06/19/2016. CT chest 07/09/2016. TECHNIQUE: 2 views of the chest were obtained. FINDINGS: PA and lateral views of the chest demonstrate pulmonary hyperinflation, corresponding to the patient's known underlying pulmonary emphysema. There is coarsening of the interstitium within the bilateral lungs, notably within the bilateral lung bases. This appears slightly increased relative to a prior chest x-ray dated 06/19/2016. There are subtle airspace opacities within the bilateral lung bases. A superimposed infection cannot be excluded in the appropriate clinical setting. IMPRESSION: Radiographic findings suggestive of pulmonary emphysema. Chronic coarsening of the interstitium, notably within the bilateral lung bases. Subtle patchy airspace opacities within the bilateral lung bases. Cannot exclude superimposed infection. Recommend PA and lateral chest x-ray following treatment to ensure resolution. DICTATED BY: PACHECO JACKMAN,BELKYS DATE/TIME DICTATED:2201 MUSIC RESEARCHER:ROSANNE DATE/TIME TRANSCRIBED:08/26/162201 CONFIDENTIAL, DO NOT COPY WITHOUT APPROPRIATE AUTHORIZATION. <Electronically signed in Other Vendor System> SIGNED BY: BELKYS BERGMAN MD 08/26/162206 Initial ED EKG: SINUS TACHYCARDIA Hand-Off Endorsed To: ROSCOE CAMARA MD Endorsed Time: 2312 Pending: labs (ROCHELLE KRISHNA MD) Departure Departure Disposition: STILL A PATIENT Condition: Stable Clinical Impression Primary Impression: Pneumonia Secondary Impressions: COPD exacerbation Referrals: STEWART JONES MD (PCP/Family) Departure Forms: Customer Survey General Discharge Information Prescriptions: Current Visit Scripts Azithromycin 1 TAB PO DAILY #3 TAB . Prednisone 1 TAB PO DAILY #20 TAB Then Stop Admission Note Spoke With: GEOFFREY RYAN MD Documentation of Exam: Documentation of any treatments & extenuating circumstances including Concerns Regarding Discharge (functional status, medication knowledge or non-compliance, living conditions, etc.) that warrant an admission rather than observation: [TRC /NEBS, IV STEROIDS, IV ABX, MONITOR I/O, F/U CULTURES] (ROCHELLE KRISHNA MD) Departure Comments pt admitted prior to the patient being sighned out to me. (ROSCOE CAMARA MD) Critical Care Note Critical Care Note Critical Care Time: non-applicable (ROCHELLE KRISHNA MD)
--- NOTE | 2016-08-26 22:07 | RADIOLOGY REPORT ---
EXAMINATION: XR CHEST CLINICAL INFORMATION: Shortness of breath. Cough. COMPARISON: Chest x-ray 06/19/2016. CT chest 07/09/2016. TECHNIQUE: 2 views of the chest were obtained. FINDINGS: PA and lateral views of the chest demonstrate pulmonary hyperinflation, corresponding to the patient's known underlying pulmonary emphysema. There is coarsening of the interstitium within the bilateral lungs, notably within the bilateral lung bases. This appears slightly increased relative to a prior chest x-ray dated 06/19/2016. There are subtle airspace opacities within the bilateral lung bases. A superimposed infection cannot be excluded in the appropriate clinical setting. IMPRESSION: Radiographic findings suggestive of pulmonary emphysema. Chronic coarsening of the interstitium, notably within the bilateral lung bases. Subtle patchy airspace opacities within the bilateral lung bases. Cannot exclude superimposed infection. Recommend PA and lateral chest x-ray following treatment to ensure resolution.
[2016-08-26] MEDS ORDERED: ATENOLOL50 M1 PO (22:21)
[2016-08-26] MEDS ORDERED: CENTRUM SILVER1 EAC4 PO (22:23)
[2016-08-26] MEDS ORDERED: VENTOLIN HFA18 GM INH (22:23)
[2016-08-26 23:29] LABS: ABSOLUTE BASOPHIL COUNT 0 /CUMM (0.0-0.2); ABSOLUTE EOSINOPHIL COUNT 0.2 /CUMM (0.0-0.7); ABSOLUTE GRANULOCYTE CT 9.5 /CUMM (1.4-6.5); ABSOLUTE LYMPH COUNT 1.1 /CUMM (1.2-3.4); ABSOLUTE MONOCYTE COUNT 0.9 /CUMM (0.10-0.60); BASOPHIL % 0.1 % (0.0-2.0); EOSINOPHIL % 1.4 % (0-5); GRANULOCYTE % 81.5 % (42.2-75.2); HEMATOCRIT 37.5 % (42-52); MEAN CORPUSCULAR HGB CONC 32.5 G/DL (33.0-37.0); MEAN CORPUSCULAR VOLUME 95.4 FL (80.0-94.0); MEAN PLATELET VOLUME 7.4 FL (7.4-10.4); PLATELET COUNT 206 /CUMM (130-400); RBC DISTRIBUTION WIDTH 14.6 % (11.5-14.5); RED BLOOD CELL CT 3.93 /CUMM (4.70-6.10); WHITE BLOOD CELL COUNT 11.6 /CUMM (4.8-10.8)
--- NOTE | 2016-08-26 23:32 | NUR ---
PT MEDICATED ORDERED
[2016-08-26 23:37] LABS: PT 13.5 SEC (9.4-12.5); PTT 34 SEC (25-37)
--- NOTE | 2016-08-26 23:44 | NUR ---
ZITHRO GTT ADMINISTERED PER eMAR
--- NOTE | 2016-08-27 00:14 | NUR ---
HOUSE STAFF AT BEDSIDE (MD STOKES AND MD BARRIENTOS).
--- NOTE | 2016-08-27 01:23 | History & Physical ---
ILIANA JACKMAN,[facility] [place]/27/16 0122: General Information and HPI MD Statement: I have seen and personally examined ANDREW GOLD and documented this H&P. The patient is a 76 year old M who presented with a patient stated chief complaint of shortness of breath. Source of Information: patient, old records Exam Limitations: no limitations History of Present Illness: Mr. Gold is a 76 y/o M with PMHx of COPD on 3 L NC, non-insulin dependent T2DM and CAD s/p PCI with stent to RCA (2004) who presents with progressively worsening shortness of breath for x4 days. The day prior to current presentation , patient also developed a cough that is productive of very thick yellow-green sputum. ROS is positive for mild nausea and chest heaviness and discomfort. He has leg edema which is unchanged from baseline. He sleeps in a reclined hospital bed at home. He denies sick contacts, URI symptoms, fever, chills, palpitations, lightheadedness, abdominal pain and dysuria. He reports compliance with all his medications except for Spiriva which he uses occasionally due to unclear reasons. Patient was diagnosed with COPD about two years prior to current presentation. He was recently hospitalized here at [facility] for acute hypoxemic and hypercarbic respiratory failure secondary to right midde lobe pneumonia and COPD exacerbation (05/25-05/27). At that time he was a smoker, smoking about 1/2 pack per day and was not on any oxygen. After being discharged, he started seeing dock grader Dr. Duncan and was started on 3 L home oxygen. He also quit smoking. Allergies/Medications Allergies: Coded Allergies: No Known Allergies (05/25/16) Home Med list Albuterol Sulfate (Ventolin Hfa) 90 MCG HFA.AER.AD 2 PUF INH PRN RESPIRATORY (Reported) Aspirin (Ecotrin*) 81 MG TABLET.DR 1 TAB PO DAILY HEART HEALTH (Reported) Atenolol 50 MG TABLET 1 TAB PO BID HEART (Reported) Atorvastatin Calcium 40 MG TABLET 1 TAB PO DAILY CHOLESTEROL (Reported) Budesonide/Formoterol Fumarate (Symbicort 160-4.5 Mcg Inhaler) 160 MCG-4.5 MCG/ ACTUATION HFA.AER.AD 2 PUF INH BID BREATHING PROBLEMS (Reported) Clopidogrel Bisulfate (Clopidogrel) 75 MG TABLET 1 TAB PO Q48 BLOOD THINNER ( Reported) Diltiazem HCl (Diltiazem 24HR ER) 180 MG CAP.ER.24H 1 CAP PO BID HEART ( Reported) Glipizide (Glipizide ER) 5 MG TAB.ER.24 1 TAB PO DAILY DM (Reported) Irbesartan 300 MG TABLET 1 TAB PO DAILY HEART (Reported) Metformin HCl 1,000 MG TABLET 1 TAB PO BID DM (Reported) Multivit-Min/FA/Lycopen/Lutein (Centrum Silver Men Tablet) 300 MCG-600 MCG-300 MCG TABLET 1 TAB PO DAILY SUPPLEMENT (Reported) Tiotropium [place] (Spiriva) 18 MCG CAP.W.DEV 1 CAP INH DAILY BREATHING PROBLEMS (Reported) Compliance With Home Meds: FAIR Past History Travel History Traveled to [place] past 21 day No Medical History Neurological: NONE EENT: NONE Cardiovascular: CAD, hypertension, hyperlipidemia, PVD, carotid artery stenosis, supraventricular tachycardia Respiratory: COPD Gastrointestinal: NONE Hepatic: NONE Renal: NONE Musculoskeletal: NONE Psychiatric: NONE Endocrine: diabetes Blood Disorders: NONE Cancer(s): NONE 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 Home Who Do You Live With? friend Services at Home: Oxygen Primary Language: Swedish Smoking Status: Former Smoker (Quit in 05/2015, >50 Pack Years) ETOH Use: denies use Illicit Drug Use: denies illicit drug use Functional Ability ADLs Independent: dressing, eating, toileting, bathing. Ambulation: independent Employment History Employment Retired Review of Systems Review of Systems Constitutional: Denies: chills, fever. EENTM: Reports: no symptoms. Cardiovascular: Reports: chest pain, peripheral edema (unchanged from baseline). Denies: palpitations. Respiratory: Reports: cough, short of breath, sputum production. GI: Reports: nausea. Denies: abdominal pain. Genitourinary: Denies: dysuria. Musculoskeletal: Reports: no symptoms. Skin: Reports: no symptoms. Neurological/Psychological: Reports: no symptoms. Hematologic/Endocrine: Reports: no symptoms. Immunologic/Allergic: Reports: no symptoms. All Other Systems: Reviewed and Negative Exam & Diagnostic Data Last 24 Hrs of Vital Signs/I&O Vital Signs Date Time Temp Pulse Resp B/P B/P Pulse O2 O2 Flow FiO2 Mean Ox Delivery Rate 08/27 0228 102/53 08/27 0226 97 18 102/53 95 Nasal 4.0L Cannula 08/26 2347 98.6 97 20 127/59 95 Nasal 4.0L Cannula 08/26 2334 97 Nasal 4.0L Cannula 08/26 2208 94 Nasal 4.0L Cannula 08/26 2121 98.4 96 22 149/76 87 Nasal 3.0L Cannula Intake & Output 08/27 0800 08/27 0000 08/26 1600 Intake Total 350 Output Total Balance 350 Intake, IV 350 Patient 71.668 kg Weight Physical Exam General Appearance Alert, Oriented X3, Cooperative Skin No Rashes Skin Temp/Moisture Exam: Warm/Dry HEENT Atraumatic, Mucous Membr. moist/pink Neck Supple Cardiovascular Regular Rate, Normal S1, Normal S2 Lungs Moderate Respiratory Distress with Accessory Muscle Use, Markedly Diminished Breath Sounds, Prolonged Expiratory Phase Abdomen Soft, No Tenderness, Positive Bowel Sounds Extremities No Clubbing, No Cyanosis, Bilateral Lower Extremities with 2+ Pitting Edema Last 24 Hrs of Labs/Elfego: Laboratory Tests 08/27/16 0041: Lactic Acid Cancelled 08/26/16 2315: Anion Gap 10, Estimated GFR > 60, BUN/Creatinine Ratio 24.0, Glucose 125 H, Lactic Acid 1.1, Calcium 8.7, Total Bilirubin 1.2, AST 20, ALT 40, Alkaline Phosphatase 70, Troponin I < 0.01, Tfu-V-Jbvmqunzdew Pept 327 H, Total Protein 6.5, Albumin 3.7, Globulin 2.8, Albumin/Globulin Ratio 1.3, PT 13.5 H, INR 1.29 H, APTT 34, CBC w Diff NO MAN DIFF REQ, RBC 3.93 L, MCV 95.4 H, MCH 31.0, RDW 14.6 H, MPV 7.4, Gran % 81.5 H, Lymphocytes % 9.1 L, Monocytes % 7.9, Eosinophils % 1.4, Basophils % 0.1, Absolute Granulocytes 9.5 H, Absolute Lymphocytes 1.1 L, Absolute Monocytes 0.9 H, Absolute Eosinophils 0.2, Absolute Basophils 0, PUBS MCHC 32.5 L 06/14/17 2144: Flb-P-Aotbvejqrhe Pept Cancelled Microbiology 08/26 2315 BLOOD: Blood Culture - RECD 08/26 2310 BLOOD: Blood Culture - RECD 08/26 230 BLOOD: Blood Culture - CAN Cancelled: Cancelled via OE: DUPLICATE 08/26 230 BLOOD: Blood Culture - CAN Cancelled: Cancelled via OE: DUPLICATE 08/27 2143 LOWER RESP: Respiratory Culture - COLB 08/27 2143 LOWER RESP: Gram Stain - COLB Diagnostic Data EKG Results Sinus tachycardia HR 106 QTc 457 CXR Results Radiographic findings suggestive of pulmonary emphysema. Chronic coarsening of the interstitium, notably within the bilateral lung bases. Subtle patchy airspace opacities within the bilateral lung bases. Cannot exclude superimposed infection. Recommend PA and lateral chest x-ray following treatment to ensure resolution. Assessment/Plan Assessment: Mr. Gold is a 76 y/o M with PMHx of COPD on 3 L NC, non-insulin dependent T2DM and CAD s/p PCI with stent to RCA (2004) who presents with progressively worsening shortness of breath and productive cough. #COPD exacerbation: Current symptoms most consistent with COPD exacerbation. No focal consolidation on CXR to suggest pneumonia. Patient is afebrile, though with mild leukocytosis, likely reactive. S/p 1 dose of IV azithromycin and ceftriaxone, 125 mg of IV Solumedrol and nebulizer treatment in the ED. * Admit to General Medicine. * Pulmonology consult to be placed in the AM. Appreciate their recs. * Start Solumedrol 40 mg IV Q8H. * Continue azithromycin 500 mg IV daily for 4 more day for a total of 5 days. * TRC and nebs. * Encourage incentive spirometry. * Provide supplemental oxygen to keep SpO2 >92%. * Continue home inhalers Spiriva 1 puff daily and Symbicort 2 puffs daily. * Start Mucinex 600 mg PO BID. #Supraventricular tachycardia: * Envmwaho-hluyb-ap-admission atenolol 50 mg PO BID and diltiazem 180 mg PO BID. #CAD: S/p stent to RCA in 2004. * Continue ohpys-ap-rmwghrlbz enteric-coated aspirin 81 mg PO daily and Plavix 75 mg PO Q48H. #HTN: Takes irbesartan 300 mg PO daily. * Losartan 100 mg PO daily while inpatient as irbesartan is not on formulary. #Non-insulin dependent T2DM: Takes glipizide 5 mg PO daily and metformin 1000 mg PO BID. * Hold oral hypoglycemic agents while inpatient. * Accu-checks and medium dose sliding scale Novolog TIDAC. #HLD: * Continue egmnw-il-khswivatt atorvastatin 40 mg PO daily. Diet: Consistent Carbohydrate 3 DVT PPx: Lovenox and ALPs CODE: FULL As Ranked By This Provider Problem List: 1. COPD exacerbation 2. HTN (hypertension) 3. CAD (coronary artery disease) 4. Non-insulin dependent type 2 diabetes mellitus 5. HLD (hyperlipidemia) 6. SVT (supraventricular tachycardia) Core Measures/Miscellaneous Acute Coronary Syndrome ACS Diagnosis: No Cerebrovascular Accident CVA/TIA Diagnosis: No Congestive Heart Failure CHF Diagnosis: No VTE (View Protocol) VTE Risk Factors: Acute medical illness, Age > 40, CHF or Resp failure No [facility] VTE prophylaxis d/t: No contraindications No VTE Pharm Prophylaxis d/t: No contraindications VTE Diagnosis: No VTE Type: NONE VTE Confirmed by (Test): NONE Sepsis (View Protocol) Severe Sepsis Present: No Septic Shock Septic Shock Present: No Miscellaneous Documentation Attending Case Discussed With: GEOFFREY RYAN MD Primary Care Physician: KAREN JACKMAN,STEWART Bahena Patient sees these Specialists Paper Box Maker Salbador Alvarado MD Level of Patient Care: General Medicine JACOB STOKES 08/27/16 0125: Resident Review Statement Resident Statement: examined this patient, discussed with internet consultant, agreed with internet consultant, reviewed images, amended to note Other Findings: This is a 76 years old man with past medical history of COPD on 3 L of oxygen at home, csv-wudrkkp-xcgzwflvf diabetes mellitus, coronary artery disease status post stent RCA in 2004, left carotid endarterectomy rectum in 2005 was last admitted in May 2016 to [facility] and treated for pneumonia after which was discharged home on oxygen and has continued to be on oxygen throughout. Post discharge the patient was treated once for pneumonia by his dock grader as an outpatient and is presenting with 4 days history of progressive shortness of breath that has been getting worse and cough. The patient reports that his feeling winded doing very light activities and despite having oxygen is not getting any relief. In the same. He has been coughing producing thick greenish yellow sputum large amount. He denies any sick contacts no fever no chills, he has no paroxysmal nocturnal dyspnea orthopnea or swelling of the lower limbs more than his baseline. He denies any chest pain or palpitation but volunteers and uneaziness due to sense of incomplete respiration On arrival in the ER the patient was afebrile 98.4 tachycardic at 96 respiration of 22 blood pressure 149/76 and was saturating 87% on 3 L Physical examination: Not in acute distress, oriented to time place and person, cooperative Chest: Mild expiratory wheezes with decreased breath sounds Extremities: Pitting edema +1 bilaterally Labs: Mild leukocytosis of 11,600 with no bands, proBNP 325, potassium 3.7 CXR shows pulmonary emphysema with patchy airspace disease opacities within bilateral lung bases these changes can be seen in previous x-rays taken as early as May 2016 Assessment and plan 76 years old gentleman with history of COPD presented with 3 days history of increased shortness of breath associated with cough productive of thick large amount of creamy yellowish phlegm without any fevers or chills and on the borderline leukocytosis. On presentation the patient was hypoxic at 87% COPD exacerbation Acute hypoxic respiratory failure Admit patient to general medicine floor Total respiratory care Adjust oxygen to maintain saturation above 92% Lower respiratory culture, blood culture, follow-up results Continue home inhalers Symbicort and Spiriva Solu-Medrol 40 mg every 8 Azithromycin 500 mg daily for 5 days Pulmonary principal consultant review Consistent carbohydrate 3 diet Hold home antidiabetic medication and start insulin sliding scale Patient is full code Lovenox for DVT prophylaxis SHELBY,AARTEE 08/27/16 0254: Attending MD Review Statement Attending Statement Attending MD Statement: examined this patient, discuss w/resident/PA/LEMON PICKER, agreed w/resident/PA/LEMON PICKER, reviewed EMR data (avail), reviewed images, amended to note Attending Assessment/Plan: CC : SOB and cough PMH: COPD on 3 L oxygen nasal cannula since May, DM, CAD S/P RCA stent, CEA left, SVT, HTN, HLD Patient came to ER for progressive worsening of shortness of breath since 7 days , worse since last 2 days associated with cough and deep greenish yellow sputum production since one day. Patient denies any chest pain, worsening leg swelling, palpitations, fever, chills at home. Patient usually sleeps on reclined bed. He was admitted in [facility] in month of May and was treated for pneumonia, he followed up outpatient with dock grader and had a repeat imaging which showed residual pneumonia, was treated with antibiotics again. Intermittently he was feeling better but last 7 days again breathing worsened. Patient had an ER visit in of June for tachycardia related to some medication mixup. Vitals: Afebrile, pulse 90s, RR 22, blood pressure 142/76, saturating 87% on 3 L upon arrival, saturation improved to 94% on 4 L. On exam: A O 3, cooperative, in moderate respiratory distress, accessory muscles of respiration in use, completes sentences without getting shortness of breath, neck supple, JVD normal, no lymphadenopathy, mucosa moist, no focal neurological deficit, +2 pedal edema, no obvious skin rashes or inflammation CVS : S1-S2, RRR. RS: Markedly decreased breathing sounds bilaterally with prolonged expiration. Abdomen: Soft, NT, ND, bowel sounds present. Peripheral pulses perfusion normal Labs: WBC 11.6, neutrophils 81%, hemoglobin 12.2, platelet 206, BMP unremarkable , lactate 1.1, proBNP 327, troponin less than 0.01, LFT unremarkable, INR 1.29. CXR: Radiographic findings suggestive of pulmonary emphysema. Chronic coarsening of the interstitium, notably within the bilateral lung bases. Subtle patchy airspace opacities within the bilateral lung bases. Cannot exclude superimposed infection. Recommend PA and lateral chest x-ray following treatment to ensure resolution. A and P 76-year-old male with multiple comorbidities currently on 3 L oxygen nasal cannula for COPD presented in ER for worsening of shortness of breath since 7 days worse in the last 2 days associated with cough and yellowish green sputum production, no subjective fever or pleuritic chest pain. He is afebrile in ER and hemodynamically stable. He was desaturating to 87% on 3 L, accessory muscles in use, initially markedly diffused air entry, improved with nebulization treatment still prolonged expiration and decreased bilateral breathing sounds. Oxygenation was improved to 94% on 4 L. Does not have significant leukocytosis. Chest x-ray film reviewed and compared with the previous x-rays, even though there is suspicion of superimposed infection I could not differentiate that from the previous imaging. Comparative X-rays from June, were reviewed. No obvious focal consolidation could be seen. This appears chronic interstitial changes, will need further evaluation by dock grader. Even if there is a superimposed infection, it appears to be atypical according to distribution and azithromycin will be appropriate. Bilateral lower extremity edema has not changed much, does not have obvious JVD, these changes appear to be secondary to cor pulmonale + COPD exacerbation + Acute on chronic hypoxic respiratory failure secondary to COPD exacerbation + History of DM, CAD S/P stent, carotid stenosis S/P CEA left, SVT, HTN, HLD - Admit to general medicine for COPD exacerbation - IV methylprednisolone 40 mg every 8 hours - Continue O2 by nasal cannula, try to wean down to his baseline. - Albuterol and ipratropium nebulizations scheduled and as required - Mucinex 600 mg by mouth twice a day - Azithromycin 500 mg IV daily for 5 days - Consult Stewart Duncan MD patient known to him - TRC, incentive spirometry - Hold sulfonylureas and metformin and continue sliding scale insulin - Continue aspirin, Plavix, atenolol, atorvastatin, diltiazem, ARB. - DVT prophylaxis with Lovenox - Adequate pain control
--- NOTE | 2016-08-27 02:11 | NUR ---
PT RESTING ON BED. NO DISTRESS NOTED. WILL CONTINUE TO MONITOR.
--- NOTE | 2016-08-27 02:55 | Admission Certification ---
Admission Certification Certification Statement - As attending physician, I certify that at the time of - admission, based on clinical presentation, severity of - symptoms, need for further diagnostic testing and - therapeutic interventions, and risk of adverse outcomes - without in-hospital treatment, in my clinical assessment, - this patient requires an acute hospital stay for a minimum - of two nights or longer. I have also considered psychsocial - factors such as support system, advanced age, financial - issues, cognitive issues, and failed out-patient treatments, - past re-admission history, safety of patient, and lack of - compliance as applicable. Specific rationale supporting this admission is: COPD exacerbation
--- NOTE | 2016-08-27 03:56 | NUR ---
PT CONTINUES TO REST ON STRETCHER. NO RESP DISTRESS NOTED. WILL CONTINUE TO MONITOR.
--- NOTE | 2016-08-27 05:28 | NUR ---
PT CONTINUES TO SLEEP ON STRETCHER. NO APPARENT DISTRESS NOTED. MONITOR REMAINS IN PLACE. WILL CONTINUE TO MONITOR.
[2016-08-27 05:56] LABS: ABSOLUTE BASOPHIL COUNT 0 /CUMM (0.0-0.2); ABSOLUTE EOSINOPHIL COUNT 0 /CUMM (0.0-0.7); ABSOLUTE GRANULOCYTE CT 9.9 /CUMM (1.4-6.5); ABSOLUTE LYMPH COUNT 0.3 /CUMM (1.2-3.4); ABSOLUTE MONOCYTE COUNT 0.1 /CUMM (0.10-0.60); BASOPHIL % 0 % (0.0-2.0); EOSINOPHIL % 0 % (0-5); GRANULOCYTE % 96.3 % (42.2-75.2); HEMATOCRIT 37.3 % (42-52); MEAN CORPUSCULAR HGB 31.1 PG (27.0-31.0); MEAN CORPUSCULAR HGB CONC 32.7 G/DL (33.0-37.0); MEAN PLATELET VOLUME 7.5 FL (7.4-10.4); PLATELET COUNT 184 /CUMM (130-400); RBC DISTRIBUTION WIDTH 14.3 % (11.5-14.5); RED BLOOD CELL CT 3.92 /CUMM (4.70-6.10); WHITE BLOOD CELL COUNT 10.3 /CUMM (4.8-10.8)
[2016-08-27 07:13] VITALS: BP 135/61
--- NOTE | 2016-08-27 07:19 | NUR ---
REPORT GIVEN TO KASIE MONTELONGO.
--- NOTE | 2016-08-27 08:46 | NUR ---
ASSUMED CARE OF PT WHO IS AWAKE, ALERT AND CONVERSANT AT THIS TIME. PT STATES HE FEELS "OK". DENIES PAIN. VERY CONGESTED COUGH NOTED, NON PRODUCTIVE AT THIS TIME. HR LOW 100'S. SAT 93% ON 4L. PT STATES HE ATE BREAKFAST AND DOES NOT WISH TO HAVE PERSONAL HYGIENE ITEMS AT THIS TIME. STATES HIS SON WILL BE COMING TO VISIT SOON. DENIES NEEDING ANYTHING ELSE AT THIS TIME. WILL CONTINUE TO MONITOR.
--- NOTE | 2016-08-27 08:58 | NUR ---
IPOC UPDATED AND MAINTAINED PHARMACY CALLED FOR 1000 MEDS
--- NOTE | 2016-08-27 09:35 | NUR ---
PT ADMITTED TO ROOM 224-1
--- NOTE | 2016-08-27 10:16 | NUR ---
MEDICATED WITH DAILY PO MEDS PER MAY. PT REFUSING CLARITIN AND LOVENOX. BOOM STICK MAN PAGED REGARDING SAME (SOPHIA SEVERINO). PER PHARMACIST, IV ZITHROMAX ONLY TO BE GIVEN ONCE DAILY. BOOM STICK MAN INFORMED OF SAME AND STATES SHE WILL CHANGE ORDER FOR LATER TONIGHT, PT ALSO REFUSING ASA STATING HE TAKES IT AT NIGHT. HOUSE STAFF AWARE OF ALL OF THE ABOVE AND IN AGREEMENT PT REMAINS PLEASANT, CONVERSANT WITH NO COMPLAINTS NOTED.
--- NOTE | 2016-08-27 10:26 | NUR ---
NURSE TO CALL BACK FOR REPORT
--- NOTE | 2016-08-27 10:45 | NUR ---
REPORT GIVEN TO CARLOS SNIDER BOOKED
--- NOTE | 2016-08-27 11:30 | NUR ---
PT ARRIVED TO FLOOR FROM ED. A & O X 3. O2 4L IN PLACE. PT WEARS 3L AT HOME SINCE EARLIER IN THE YEAR WHEN HE WAS HOSPITALIZED FOR A COPD EXACERBATION. LUNGS VERY DIMINISHED BUT NO WHEEZES OR RHONCHI NOTED. EXTENSION TUBING PROVIDED PT IS INDEPENDENT ON HIS FEET. ORIENTED TO CALL SYSTEM. NO C/O PAIN OR DISTRESS. SAFETY MAINTAINED.
[2016-08-27 11:44] VITALS: BP 130/60
--- NOTE | 2016-08-27 13:14 | PN- Att Addend ---
Attending Addendum Attending Brief Note Patient seen and examined, he denies any resting shortness of breath. He does have dyspnea on exertion still. Vital Signs Date Time Temp Pulse Resp B/P B/P Pulse O2 O2 Flow FiO2 Mean Ox Delivery Rate 08/27 1144 98.1 100 20 130/60 90 Nasal 3.5L Cannula 08/27 1014 97.9 104 18 132/69 08/27 1013 97.9 104 18 132/69 08/27 0952 97.9 104 18 132/69 95 Nasal 4.0L Cannula 08/27 0849 103 08/27 0800 96.7 112 18 143/65 93 Nasal 4.0L Cannula 08/27 0713 97.1 103 18 135/61 96 Nasal 4.0L Cannula 08/27 0657 96 Nasal 4.0L Cannula 08/27 0617 97.1 103 18 135/61 96 Room Air 08/27 0549 97.1 103 20 137/63 96 Nasal 4.0L Cannula 08/27 0228 102/53 08/27 0226 97 18 102/53 95 Nasal 4.0L Cannula 08/26 2347 98.6 97 20 127/59 95 Nasal 4.0L Cannula 08/26 2334 97 Nasal 4.0L Cannula 08/26 2208 94 Nasal 4.0L Cannula 08/26 2121 98.4 96 22 149/76 87 Nasal 3.0L Cannula on exam; aox3, nad. cv; s1,s2 rrr. resp; decresaed bs overall. abd; soft, nt, bs+ ext; no edema. Laboratory Tests 08/27 08/27 0548 0041 Chemistry Sodium (137 - 145 mmol/L) 141 Potassium (3.5 - 5.1 mmol/L) 5.1 Chloride (98 - 107 mmol/L) 103 Carbon Dioxide (22 - 30 mmol/L) 29 Anion Gap (5 - 16) 9 BUN (9 - 20 mg/dL) 11 Creatinine (0.7 - 1.2 mg/dL) 0.5 L Estimated GFR (>60 ml/min) > 60 BUN/Creatinine Ratio (7 - 25 %) 22.0 Lactic Acid Cancelled Hematology CBC w Diff NO MAN DIFF REQ WBC (4.8 - 10.8 /CUMM) 10.3 RBC (4.70 - 6.10 /CUMM) 3.92 L Hgb (14.0 - 18.0 G/DL) 12.2 L Hct (42 - 52 %) 37.3 L MCV (80.0 - 94.0 FL) 95.0 H MCH (27.0 - 31.0 PG) 31.1 H RDW (11.5 - 14.5 %) 14.3 Plt Count (130 - 400 /CUMM) 184 MPV (7.4 - 10.4 FL) 7.5 Gran % (42.2 - 75.2 %) 96.3 H Lymphocytes % (20.5 - 51.1 %) 2.8 L Monocytes % (1.7 - 9.3 %) 0.9 L Eosinophils % (0 - 5 %) 0 Basophils % (0.0 - 2.0 %) 0 L Absolute Granulocytes (1.4 - 6.5 /CUMM) 9.9 H Absolute Lymphocytes (1.2 - 3.4 /CUMM) 0.3 L Absolute Monocytes (0.10 - 0.60 /CUMM) 0.1 L Absolute Eosinophils (0.0 - 0.7 /CUMM) 0 Absolute Basophils (0.0 - 0.2 /CUMM) 0 PUBS MCHC (33.0 - 37.0 G/DL) 32.7 L 08/26 08/26 2315 2144 Chemistry Sodium (137 - 145 mmol/L) 137 Potassium (3.5 - 5.1 mmol/L) 3.7 Chloride (98 - 107 mmol/L) 99 Carbon Dioxide (22 - 30 mmol/L) 28 Anion Gap (5 - 16) 10 BUN (9 - 20 mg/dL) 12 Creatinine (0.7 - 1.2 mg/dL) 0.5 L Estimated GFR (>60 ml/min) > 60 BUN/Creatinine Ratio (7 - 25 %) 24.0 Glucose (65 - 99 mg/dL) 125 H Lactic Acid (0.7 - 2.1 mmol/L) 1.1 Calcium (8.4 - 10.2 mg/dL) 8.7 Total Bilirubin (0.2 - 1.3 mg/dL) 1.2 AST (17 - 59 U/L) 20 ALT (21 - 72 U/L) 40 Alkaline Phosphatase (< 127 U/L) 70 Troponin I (<0.11 ng/ml) < 0.01 Grq-B-Ijnmptzfcwc Pept (<125 pg/mL) 327 H Cancelled Total Protein (6.3 - 8.2 g/dL) 6.5 Albumin (3.5 - 5.0 g/dL) 3.7 Globulin (1.9 - 4.2 gm/dL) 2.8 Albumin/Globulin Ratio (1.1 - 2.2 %) 1.3 Coagulation PT (9.4 - 12.5 SEC) 13.5 H INR (0.90 - 1.17) 1.29 H APTT (25 - 37 SEC) 34 Hematology CBC w Diff NO MAN DIFF REQ WBC (4.8 - 10.8 /CUMM) 11.6 H RBC (4.70 - 6.10 /CUMM) 3.93 L Hgb (14.0 - 18.0 G/DL) 12.2 L Hct (42 - 52 %) 37.5 L MCV (80.0 - 94.0 FL) 95.4 H MCH (27.0 - 31.0 PG) 31.0 RDW (11.5 - 14.5 %) 14.6 H Plt Count (130 - 400 /CUMM) 206 MPV (7.4 - 10.4 FL) 7.4 Gran % (42.2 - 75.2 %) 81.5 H Lymphocytes % (20.5 - 51.1 %) 9.1 L Monocytes % (1.7 - 9.3 %) 7.9 Eosinophils % (0 - 5 %) 1.4 Basophils % (0.0 - 2.0 %) 0.1 Absolute Granulocytes (1.4 - 6.5 /CUMM) 9.5 H Absolute Lymphocytes (1.2 - 3.4 /CUMM) 1.1 L Absolute Monocytes (0.10 - 0.60 /CUMM) 0.9 H Absolute Eosinophils (0.0 - 0.7 /CUMM) 0.2 Absolute Basophils (0.0 - 0.2 /CUMM) 0 PUBS MCHC (33.0 - 37.0 G/DL) 32.5 L A/P; 76 y/o M iwth pmh sig for ch resp failure, COPD on 3 L NC, non-insulin dependent T2DM and CAD s/p PCI with stent to RCA (2004) admitted with acute on ch resp failure as evident by tachycardia and tachypnea 2/2 to acute bronchitis/ ac copd exacerbation. Continue IV Solu-Medrol at present dose. Continue azithromycin. Follow-up on sputum cultures. Continue TRC nebs. Continue other inhalers, other medications. Pulmonology consult is requested. DVT px: Lovenox
[2016-08-27 14:10] VITALS: BP 126/60
--- NOTE | 2016-08-27 19:33 | Cons- Pulmonary ---
General Information and HPI Consulting Request Date of Consult: 08/27/16 Requested By: med team History of Present Illness: Mr. Gold is a 76 y/o M with PMHx of COPD on 3 L NC, non-insulin dependent T2DM and CAD s/p PCI with stent to RCA (2004) who presents with progressively worsening shortness of breath for x4 days. The day prior to current presentation , patient has also developed a cough that is productive of very thick yellow- green sputum. ROS is positive for mild nausea and chest heaviness and discomfort. He denies sick contacts, URI symptoms, fever, chills, palpitations, lightheadedness, abdominal pain and dysuria. He reports compliance with all his medications except for Spiriva which he uses occasionally due to unclear reasons. Patient was diagnosed with COPD about two years prior to current presentation. He was recently hospitalized here at [facility] for COPD exacerbation (05/25-05/27). At that time he was a smoker, smoking about 1/2 pack per day and was not on any oxygen. After being discharged, He also quit smoking. Review of Systems Review of Systems Constitutional: Denies: chills, fever. EENTM: Reports: no symptoms. Cardiovascular: Reports: chest pain. Denies: palpitations. Respiratory: Reports: cough, short of breath, sputum production. GI: Reports: nausea. Denies: abdominal pain. Genitourinary: Denies: dysuria. Musculoskeletal: Reports: no symptoms. Skin: Reports: no symptoms. Neurological/Psychological: Reports: no symptoms. Hematologic/Endocrine: Reports: no symptoms. Immunologic/Allergic: Reports: no symptoms. All Other Systems: Reviewed and Negative Physical Exam General Appearance Alert, Oriented X3, No Acute Distress Skin No Rashes Skin Temp/Moisture Exam: Warm/Dry HEENT Atraumatic, Mucous Membr. moist/pink Neck Supple Cardiovascular Regular Rate, Normal S1, Normal S2 Lungs Markedly Diminished Breath Sounds, Prolonged Expiratory Phase Abdomen Soft, No Tenderness, Positive Bowel Sounds Allergies/Medications Allergies: Coded Allergies: No Known Allergies (05/25/16) Home Med List: Albuterol Sulfate (Ventolin Hfa) 90 MCG HFA.AER.AD 2 PUF INH PRN RESPIRATORY (Reported) Aspirin (Ecotrin*) 81 MG TABLET.DR 1 TAB PO DAILY HEART HEALTH (Reported) Atenolol 50 MG TABLET 1 TAB PO BID HEART (Reported) Atorvastatin Calcium 40 MG TABLET 1 TAB PO DAILY CHOLESTEROL (Reported) Budesonide/Formoterol Fumarate (Symbicort 160-4.5 Mcg Inhaler) 160 MCG-4.5 MCG/ ACTUATION HFA.AER.AD 2 PUF INH BID BREATHING PROBLEMS (Reported) Clopidogrel Bisulfate (Clopidogrel) 75 MG TABLET 1 TAB PO Q48 BLOOD THINNER ( Reported) Diltiazem HCl (Diltiazem 24HR ER) 180 MG CAP.ER.24H 1 CAP PO BID HEART ( Reported) Glipizide (Glipizide ER) 5 MG TAB.ER.24 1 TAB PO DAILY DM (Reported) Irbesartan 300 MG TABLET 1 TAB PO DAILY HEART (Reported) Metformin HCl 1,000 MG TABLET 1 TAB PO BID DM (Reported) Multivit-Min/FA/Lycopen/Lutein (Centrum Silver Men Tablet) 300 MCG-600 MCG-300 MCG TABLET 1 TAB PO DAILY SUPPLEMENT (Reported) Tiotropium [place] (Spiriva) 18 MCG CAP.W.DEV 1 CAP INH DAILY BREATHING PROBLEMS (Reported) Review of Systems Review of Systems Constitutional: Reports: see HPI. 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 Home Who Do You Live With? friend Services at Home: Oxygen Primary Language: Greenlandic Smoking Status: Former Smoker (Quit in 05/2015) ETOH Use: denies use Illicit Drug Use: denies illicit drug use Functional Ability ADLs Independent: dressing, eating, toileting, bathing. Ambulation: independent Exam & Diagnostic Data Last 24 Hrs of Vital Signs/I&O Vital Signs Date Time Temp Pulse Resp B/P B/P Pulse O2 O2 Flow FiO2 Mean Ox Delivery Rate 08/27 1840 95 Nasal 4.0L Cannula 08/27 1600 Nasal 4.0L Cannula 08/27 1410 97.9 95 18 126/60 92 Nasal 3.5L Cannula 08/27 1251 Nasal 4.0L Cannula 08/27 1144 98.1 100 20 130/60 90 Nasal 3.5L Cannula 08/27 1014 97.9 104 18 132/69 08/27 1013 97.9 104 18 132/69 08/27 0952 97.9 104 18 132/69 95 Nasal 4.0L Cannula 08/27 0849 103 08/27 0800 96.7 112 18 143/65 93 Nasal 4.0L Cannula 08/27 0713 97.1 103 18 135/61 96 Nasal 4.0L Cannula 08/27 0657 96 Nasal 4.0L Cannula 08/27 0617 97.1 103 18 135/61 96 Room Air 08/27 0549 97.1 103 20 137/63 96 Nasal 4.0L Cannula 08/27 0228 102/53 08/27 0226 97 18 102/53 95 Nasal 4.0L Cannula 08/26 2347 98.6 97 20 127/59 95 Nasal 4.0L Cannula 08/26 2334 97 Nasal 4.0L Cannula 08/26 2208 94 Nasal 4.0L Cannula 08/26 2121 98.4 96 22 149/76 87 Nasal 3.0L Cannula Intake & Output 08/27 1600 08/27 0800 08/27 0000 Intake Total 240 0 350 Output Total Balance 240 0 350 Intake, IV 350 Intake, Oral 240 0 Patient 158 lb 158 lb Weight Weight Reported by Patient Measurement Method Last 48 Hrs of Labs/Elfego: Laboratory Tests 08/27/16 0548: Anion Gap 9, Estimated GFR > 60, BUN/Creatinine Ratio 22.0, CBC w Diff NO MAN DIFF REQ, RBC 3.92 L, MCV 95.0 H, MCH 31.1 H, RDW 14.3, MPV 7.5, Gran % 96.3 H, Lymphocytes % 2.8 L, Monocytes % 0.9 L, Eosinophils % 0, Basophils % 0 L, Absolute Granulocytes 9.9 H, Absolute Lymphocytes 0.3 L, Absolute Monocytes 0.1 L, Absolute Eosinophils 0, Absolute Basophils 0, PUBS MCHC 32.7 L 08/27/16 0041: Lactic Acid Cancelled 08/26/16 2315: Anion Gap 10, Estimated GFR > 60, BUN/Creatinine Ratio 24.0, Glucose 125 H, Lactic Acid 1.1, Calcium 8.7, Total Bilirubin 1.2, AST 20, ALT 40, Alkaline Phosphatase 70, Troponin I < 0.01, Gsi-F-Yyaptozhhdi Pept 327 H, Total Protein 6.5, Albumin 3.7, Globulin 2.8, Albumin/Globulin Ratio 1.3, PT 13.5 H, INR 1.29 H, APTT 34, CBC w Diff NO MAN DIFF REQ, RBC 3.93 L, MCV 95.4 H, MCH 31.0, RDW 14.6 H, MPV 7.4, Gran % 81.5 H, Lymphocytes % 9.1 L, Monocytes % 7.9, Eosinophils % 1.4, Basophils % 0.1, Absolute Granulocytes 9.5 H, Absolute Lymphocytes 1.1 L, Absolute Monocytes 0.9 H, Absolute Eosinophils 0.2, Absolute Basophils 0, PUBS MCHC 32.5 L 08/26/16 2144: Vws-T-Ngmvvsgcsoo Pept Cancelled Assessment/Plan Impression/Plan: IMPRESSION 75-year-old male with a past medical history of hyperlipidemia, COPD, non- insulin-dependent diabetes mellitus, coronary artery disease status post stent placements to RCA in 2004, left carotid endarterectomy in April 2005, history of supraventricular tachycardia presented to the ED with severe obstructive lung disease by pft with more than 50 pack yr smoking has * Acute copd exacerbation with recent right middle lobe community-acquired pneumonia and severe COPD exacerbation (Never intubated for copd or no recent steroid use, with sig baseline dyspnea) * History of significant smoking with very severe obstructive lung disease by PFTs seen in 2011 * Significant hypoxemia related to pneumonia and COPD exacerbation with probable underlying chronic hypoxemia. Patient also has underlying hypercarbia related to worsening obstructive lung disease * Chronic cor pulmonale with lower extremity edema * Severe peripheral vascular disease with previous carotid endarterectomy and previous history of ischemic heart disease with stents in the RCA in 2004 with previous history of SVT with no evidence suggestive of active heart failure Recommendation Continue IV steroids Continue nebs can renew antibiotics IV Lasix 20 mg 1 If he still tachypneic tomorrow we will do a CT of the chest to rule out PE Sputum culture Ambulate and check O2 sat We will follow closely Consult Acknowledgment - Thank you for your consult request.
[2016-08-27 22:06] VITALS: BP 136/60
--- NOTE | 2016-08-27 23:26 | NUR ---
PATIENT'S O2 AFTER AMBULATION WAS 80% ON 3L NC. RETURNED PATIENT BACK TO HIS ROOM AND RE-TOOK O2 SAT 94% ON 3L NC. MD SERRANO AWARE.
[2016-08-28 06:29] VITALS: BP 120/60
--- NOTE | 2016-08-28 07:34 | PN- Housestaff ---
NAKIA ZAPATAROLOSHYANN 08/28/16 0733: Subjective Follow-up For: COPD exacerbation Complaints: no complaints Subjective: Mr. Gold was comfortable this morning. Did not have any complaints. Stated that his breathing improved compared to yesterday. An ambulatory sat was attempted yesterday when his oxygen saturation dropped to approximately 80% post -ablation on 3 L supplemental oxygen. He remained afebrile overnight. Oxygen saturation are 97% on 3 L oxygen. Heart rate around 90. Review of Systems Constitutional: Reports: see HPI. Objective Last 24 Hrs of Vital Signs/I&O Vital Signs Date Time Temp Pulse Resp B/P B/P Pulse O2 O2 Flow FiO2 Mean Ox Delivery Rate 08/28 0629 97.6 89 20 120/60 97 Nasal 3.0L Cannula 08/28 0000 94 Nasal 3.0L Cannula 08/27 2206 97.8 104 24 136/60 92 Nasal 3.0L Cannula 08/27 2125 101 120/54 08/27 1840 95 Nasal 4.0L Cannula 08/27 1600 Nasal 4.0L Cannula 08/27 1410 97.9 95 18 126/60 92 Nasal 3.5L Cannula 08/27 1251 Nasal 4.0L Cannula 08/27 1144 98.1 100 20 130/60 90 Nasal 3.5L Cannula 08/27 1014 97.9 104 18 132/69 08/27 1013 97.9 104 18 132/69 08/27 0952 97.9 104 18 132/69 95 Nasal 4.0L Cannula 08/27 0849 103 08/27 0800 96.7 112 18 143/65 93 Nasal 4.0L Cannula Intake & Output 08/28 0800 08/28 0000 08/27 1600 Intake Total 300 240 Output Total Balance 300 240 Intake, Oral 300 240 Physical Exam General Appearance: No Acute Distress Other Physical Findings: General Exam: AAOx3, No acute distress, Skin: No rashes, no breakdown HEENT: PERRLA, EOMI Neck: Supple, No JVD No cervical lymphadenopathy CVS: Reg Rate, Normal S1,S2, No MGR Resp: Decreased air entry bilaterally, wheezes bilaterally. Abdomen: Soft, No tenderness, Normal Bowel Sounds Neuro: Normal Speech, Strength 5/5 b/l x 4 extremities, Sensation intact, CN III -XII NL, Reflexes 2+ Extremities: No cyanosis, pedal edema Current Medications: Current Medications Sig/Alisha Start time Last Medication Dose Route Stop Time Status Admin Acetaminophen 650 MG Q6P PRN 08/27 0415 AC PO Acetaminophen 1,000 MG Q6P PRN 08/27 0415 AC IV Albuterol Sulfate 3 ML BID 08/27 2200 AC 08/27 INH 1845 Albuterol Sulfate 2 PUF Q6-PRN PRN 08/27 0130 AC INH Aspirin Buffered 81 MG AT BEDTIME 08/27 2200 AC 08/27 PO 2126 Aspirin Buffered 81 MG DAILY 08/27 1000 DC PO Atenolol 50 MG BID 08/27 0126 AC 08/27 PO 2125 Atorvastatin Calcium 40 MG 1700 08/27 1700 AC 08/27 PO 1647 Azithromycin 500 MG Q24H 08/27 2330 AC 08/27 Sodium Chloride 250 ML IV 08/31 0029 2306 Azithromycin 500 MG DAILY 08/27 1000 CAN Sodium Chloride 250 ML IV 08/30 1059 Budesonide/ 2 PUF BID 08/27 1000 AC 08/27 Formoterol Fumarate INH 2126 Clopidogrel Bisulfate 75 MG Q48 08/27 1000 AC 08/27 PO 1014 Diltiazem HCl 180 MG BID 08/27 1000 AC 08/27 PO 2126 Diltiazem HCl 180 MG BID 08/27 0130 DC PO Enoxaparin Sodium 0 .STK-MED ONE 08/27 1001 DC SC Enoxaparin Sodium 40 MG DAILY 08/27 1000 AC SC Furosemide 20 MG ONCE ONE 08/27 2000 DC 08/27 IV 08/273 Guaifenesin 600 MG Q12 08/27 1000 AC 08/27 PO 2125 Insulin Aspart 0 TIDAC 08/27 0800 AC 08/27 SC 1647 Loratadine 10 MG DAILY 08/27 1000 AC 08/27 PO 1647 Losartan Potassium 100 MG DAILY 08/27 1000 AC 08/27 PO 1013 Methylprednisolone 40 MG Q8 08/27 1400 AC 08/28 IV 08/31 0601 0513 Morphine Sulfate 1 MG Q4P PRN 08/27 0415 AC IV Tiotropium [place] 1 PUF DAILY 08/27 1000 AC 08/27 INH 1014 Last 24 Hrs of Lab/Elfego Results Last 24 Hrs of Labs/Mics: Microbiology 08/27 2334 LOWER RESP: Respiratory Culture - COLB 08/27 2334 LOWER RESP: Gram Stain - COLB 08/28 1999 LOWER RESP: Respiratory Culture - CAN Cancelled: NUMBER OF SQUAMOUS CELLS INDICATES POOR QUALITY SPECIMEN 08/28 1999 LOWER RESP: Gram Stain - CAN Cancelled: NUMBER OF SQUAMOUS CELLS INDICATES POOR QUALITY SPECIMEN Assessment/Plan Assessment: Mr. Gold is a 76-year-old man with a past history of COPD on 3 L oxygen, type 2 diabetes, prior coronary artery disease status post PCI with stent (RCA) is being evaluated for worsening shortness of breath likely from acute hypoxic respiratory failure secondary to exacerbation of COPD. At this time, unsure of the precipitant. Differential diagnosis: #1 acute exacerbation of COPD #2 CHF Below is the problem list and plan: History of coronary artery disease- #1 acute hypoxic respiratory failure-secondary to acute exacerbation of COPD. Currently on albuterol, Spriva and Symbicort. Likely worsening COPD could be part of disease progression, from noncompliance of supplemental oxygen use. Currently on IV Solu-Medrol which is being tapered. Continue azithromycin. Supplemental oxygen as needed. Check oxygen saturation upon ambulation. #2 history of coronary artery disease and supraventricular tachycardia-plan to continue atenolol, diltiazem. Continue antiplatelet medications-currently on dual antiplatelet therapy. Unsure of the reason, we have to confirm as the patient had stent placed more than an year ago. Echocardiogram results reviewed -did not show any ventricular dysfunction. Presence of pedal edema, with normal kidney function raises the possibility of diastolic dysfunction. #3 hypertension-continue losartan. Blood pressure adequately controlled on current regimen. Restart a dissection at the time of discharge. #4 diabetes-currently on insulin sliding scale. Blood sugars in the higher range likely because of Solu-Medrol. Restart oral hypoglycemic drugs at the time of discharge. Problem List: 1. SVT (supraventricular tachycardia) 2. HLD (hyperlipidemia) 3. Non-insulin dependent type 2 diabetes mellitus 4. CAD (coronary artery disease) 5. HTN (hypertension) 6. COPD exacerbation Pain Ratin Pain Location: None Pain Goal: Pain 4 or less Pain Plan: Tylenol when necessary Tomorrow's Labs & Rationales: No labs necessary. RICHELLE JACKMAN,KAYCEE 08/28/16 1154: Attending Review Statement Attending Statement Attending MD Statement: examined this patient, discuss w/resident/PA/STATOR TESTER, agreed w/resident/PA/STATOR TESTER, reviewed EMR data (avail), discussed with nursing, discussed with case mgmt, reviewed images, amended to note Attending Assessment/Plan: Patient seen and examined, overall feeling much better. He desatted yesterday. He denies feeling much short of breath today. Vital Signs Date Time Temp Pulse Resp B/P B/P Pulse O2 O2 Flow FiO2 Mean Ox Delivery Rate 08/28 0838 124/60 08/28 0834 122/64 08/28 0813 96 Nasal 3.0L Cannula 08/28 0800 97 Nasal 3.0L Cannula 08/28 0629 97.6 89 20 120/60 97 Nasal 3.0L Cannula 08/28 0000 94 Nasal 3.0L Cannula 08/27 2206 97.8 104 24 136/60 92 Nasal 3.0L Cannula 08/27 2125 101 120/54 08/27 1840 95 Nasal 4.0L Cannula 08/27 1600 Nasal 4.0L Cannula 08/27 1410 97.9 95 18 126/60 92 Nasal 3.5L Cannula 08/27 1251 Nasal 4.0L Cannula on exam: aox3, nad. cv; s1, s2, rrr resp; clear with overall decreased bs. abd: soft,nt, bs+ ext; no edema. no labs. A/P; 76 y/o M iwth pmh sig for ch resp failure, COPD on 3 L NC, non-insulin dependent T2DM and CAD s/p PCI with stent to RCA (2004) admitted with acute on ch resp failure as evident by tachycardia and tachypnea 2/2 to acute bronchitis/ ac copd exacerbation. Currently patient on IV steroids. He wants to go home. Ideally speaking he should stay on IV steroids 1 more day and then switch to oral tomorrow. He had been followed by Dr. Duncan. If pulmonology is okay switching him to oral steroids and they feel that patient can be discharged today he can probably go home if his oxygen saturations remained stable. He desatted yesterday. We will check his ambulatory O2 sat. If stable then likely he could be a possible discharge later today. If he desatted again, he should stay 1 more day. Continue Zithromax, TRC nebs all other current medications. DVT prophylaxis: Lovenox.
[2016-08-28] MEDS ORDERED: AZITHROMYCIN500 M3 PO (13:16)
--- NOTE | 2016-08-28 13:18 | Patient Discharge Instructions ---
Discharge Instructions General Discharge Information You were seen/treated for: 1. COPD Watch for these problems: 1. Chest pain, Shortness of breath 2. Tachycardia- rapid heart beat. Special Instructions: #1 please follow-up with your primary care doctor within 1-2 weeks of discharge. #2 please follow-up with your lung DrArline Duncan MD within 1-2 weeks of discharge. Follow prednisone taper as below: 08/29-08/30 40 mg 08/31-09/01 30 mg 09/02-09/03 20 mg 09/04-09/05 10 mg Then STOP. Acute Coronary Syndrome Inclusion Criteria At DC or during hospital stay patient has or had the following: ACS DIAGNOSIS No Discharge Core Measures Meds if any: Prescribed or Continued at Discharge Meds if any: NOT Prescribed or Continued at Discharge Congestive Heart Failure Inclusion Criteria At DC or during hospital stay patient has or had the following: CHF DIAGNOSIS No Discharge Core Measures Meds if any: Prescribed or Continued at Discharge Meds if any: NOT Prescribed or Continued at Discharge Cerebrovascular accident Inclusion Criteria At DC or during hospital stay patient has or had the following: CVA/TIA Diagnosis No Discharge Core Measures Meds if any: Prescribed or Continued at Discharge Meds if any: NOT Prescribed or Continued at Discharge Venous thromboembolism Inclusion Criteria VTE Diagnosis No VTE Type NONE VTE Confirmed by (Test) NONE Discharge Core Measures - Per Current guidelines, there needs to be overlap - treatment for the first 5 days of Warfarin therapy. - If discharged on Warfarin prior to 5 days of - overlap therapy, the patient will need to be - assessed for post discharge needs including - *Post discharge parental anticoagulation - *Warfarin and/or parental anticoagulation education - *Follow up date to check INR post discharge At least 5 days overlap therapy as Inpatient No Meds if any: Prescribed or Continued at Discharge Note: Overlap Therapy is Warfarin and Anticoagulant Meds if any: NOT Prescribed or Continued at Discharge
--- NOTE | 2016-08-28 13:22 | PN- Pulmonary ---
Subjective HPI/Critical Care Issues: Mr. Gold was comfortable this morning. Did not have any complaints. Stated that his breathing improved compared to yesterday. An ambulatory sat was attempted yesterday when his oxygen saturation dropped to approximately 80% post -ablation on 3 L supplemental oxygen. He remained afebrile overnight. Oxygen saturation are 97% on 3 L oxygen. Heart rate around 90. Review of Systems Constitutional: Reports: see HPI. Objective Current Medications: Current Medications Sig/Alisha Start time Last Medication Dose Route Stop Time Status Admin Acetaminophen 650 MG Q6P PRN 08/27 0415 AC PO Acetaminophen 1,000 MG Q6P PRN 08/27 0415 AC IV Albuterol Sulfate 3 ML BID 08/27 2200 AC 08/28 INH 0813 Albuterol Sulfate 2 PUF Q6-PRN PRN 08/27 0130 AC INH Aspirin Buffered 81 MG AT BEDTIME 08/27 2200 AC 08/27 PO 2126 Atenolol 50 MG BID 08/27 0126 AC 08/28 PO 0834 Atorvastatin Calcium 40 MG 1700 08/27 1700 AC 08/27 PO 1647 Azithromycin 500 MG Q24H 08/27 2330 AC 08/27 Sodium Chloride 250 ML IV 08/31 0029 2306 Budesonide/ 2 PUF BID 08/27 1000 AC 08/28 Formoterol Fumarate INH 0825 Clopidogrel Bisulfate 75 MG Q48 08/27 1000 AC 08/27 PO 1014 Diltiazem HCl 180 MG BID 08/27 1000 AC 08/28 PO 0837 Enoxaparin Sodium 40 MG DAILY 08/27 1000 AC 08/28 SC 0835 Furosemide 20 MG ONCE ONE 08/27 2000 DC 08/27 IV 08/27 2000 2113 Guaifenesin 600 MG Q12 08/27 1000 AC 08/28 PO 0837 Insulin Aspart 0 TIDAC 08/27 0800 AC 08/28 SC 1159 Loratadine 10 MG DAILY 08/27 1000 AC 08/28 PO 1159 Losartan Potassium 100 MG DAILY 08/27 1000 AC 08/28 PO 0838 Methylprednisolone 40 MG BID 08/28 2200 AC IV 09/01 2201 Methylprednisolone 40 MG Q8 08/27 1400 DC 08/28 IV 08/31 0601 0513 Morphine Sulfate 1 MG Q4P PRN 08/27 0415 AC IV Tiotropium [place] 1 PUF DAILY 08/27 1000 AC 08/28 INH 0825 Vital Signs & I&O Last 24 Hrs of Vitals and I&O: Vital Signs Date Time Temp Pulse Resp B/P B/P Pulse O2 O2 Flow FiO2 Mean Ox Delivery Rate 08/28 0838 124/60 08/28 0834 122/64 08/28 0813 96 Nasal 3.0L Cannula 08/28 0800 97 Nasal 3.0L Cannula 08/28 0629 97.6 89 20 120/60 97 Nasal 3.0L Cannula 08/28 0000 94 Nasal 3.0L Cannula 08/27 2206 97.8 104 24 136/60 92 Nasal 3.0L Cannula 08/27 2125 101 120/54 08/27 1840 95 Nasal 4.0L Cannula 08/27 1600 Nasal 4.0L Cannula 08/27 1410 97.9 95 18 126/60 92 Nasal 3.5L Cannula Intake & Output 08/28 1600 08/28 0800 08/28 0000 Intake Total 550 300 Output Total Balance 550 300 Intake, IV 250 Intake, Oral 300 300 Impression/Plan Impression/Plan Impression/Plan: IMPRESSION 75-year-old male with a past medical history of hyperlipidemia, COPD, non- insulin-dependent diabetes mellitus, coronary artery disease status post stent placements to RCA in 2004, left carotid endarterectomy in April 2005, history of supraventricular tachycardia presented to the ED with severe obstructive lung disease by pft with more than 50 pack yr smoking has * Acute copd exacerbation with recent right middle lobe community-acquired pneumonia and severe COPD exacerbation (Never intubated for copd or no recent steroid use, with sig baseline dyspnea) * History of significant smoking with very severe obstructive lung disease by PFTs seen in 2011 * Significant hypoxemia related to pneumonia and COPD exacerbation with probable underlying chronic hypoxemia. Patient also has underlying hypercarbia related to worsening obstructive lung disease * Chronic cor pulmonale with lower extremity edema * Severe peripheral vascular disease with previous carotid endarterectomy and previous history of ischemic heart disease with stents in the RCA in 2004 with previous history of SVT with no evidence suggestive of active heart failure Recommendation Continue IV steroids and change to po prednisone 50 to taper in 10 days Continue nebs IV Lasix 20 mg 1 again Sputum culture COnt oxygen stable and if ok in am can be dcd We will follow closely
[2016-08-28 14:30] VITALS: BP 110/58
[2016-08-28] MEDS ORDERED: PREDNISONE10 M2 PO (15:06)
[2016-08-28 22:50] VITALS: BP 124/62
--- NOTE | 2016-08-29 06:08 | PN- Housestaff ---
ETHAN CABRERA 08/29/16 0606: Subjective Follow-up For: COPD exacerbation History of COPD/asthma overlap with atopic features Complaints: no complaints Subjective: Patient was visited and examined this morning. He was admitted for COPD exacerbation status day 2. He is not in acute distress using full-strength emesis eating his fruits comfortably ambulates using oxygen but gets short of breath after walking short distances. Overall patient states that he is currently back to his baseline COPD and ready to be discharged. Vital signs are stable. Currently on 4 L of oxygen. Last night his oxygen was increased from 3 L to 4 visited due to presence of breath. Review of Systems Constitutional: Reports: see HPI. Denies: chills, diaphoresis, fever, malaise, weakness, unexplained weight loss. EENTM: Reports: no symptoms. Respiratory: Reports: see HPI, short of breath. Denies: cough, hemoptysis, orthopnea, sputum production, stridor, wheezing. Genitourinary: Reports: see HPI. Musculoskeletal: Reports: see HPI. Skin: Reports: see HPI. Objective Last 24 Hrs of Vital Signs/I&O Vital Signs Date Time Temp Pulse Resp B/P B/P Pulse O2 O2 Flow FiO2 Mean Ox Delivery Rate 08/29 0720 97.8 70 20 108/58 94 Nasal 4.0L Cannula 08/29 0000 Nasal 4.0L Cannula 08/28 2250 98.2 91 20 124/62 97 Nasal Cannula 08/28 2118 124/62 08/28 2051 87 Nasal 3.0L Cannula 08/28 1600 Nasal 3.0L Cannula 08/28 1430 97.1 86 20 110/58 92 Nasal 3.0L Cannula 08/28 0838 124/60 08/28 0834 122/64 08/28 0813 96 Nasal 3.0L Cannula 08/28 0800 97 Nasal 3.0L Cannula Intake & Output 08/29 0800 08/29 0000 08/28 1600 Intake Total 1400 Output Total 640 Balance 760 Intake, Oral 1400 Output, Urine 640 Physical Exam General Appearance: Alert, Oriented X3, Cooperative, Mild Distress Skin: No Rashes, No Breakdown, No Significant Lesion Skin Temp/Moisture Exam: Warm/Dry HEENT: Atraumatic Cardiovascular: Normal S1, Normal S2, No Murmurs Abdomen: Soft Current Medications: Current Medications Sig/Alisha Start time Last Medication Dose Route Stop Time Status Admin Acetaminophen 650 MG Q6P PRN 08/27 0415 AC PO Acetaminophen 1,000 MG Q6P PRN 08/27 0415 AC IV Albuterol Sulfate 3 ML BID 08/27 2200 AC 08/28 INH 2025 Albuterol Sulfate 2 PUF Q6-PRN PRN 08/27 0130 AC INH Aspirin Buffered 81 MG AT BEDTIME 08/27 2200 AC 08/28 PO 2118 Atenolol 50 MG BID 08/27 0126 AC 08/28 PO 2118 Atorvastatin Calcium 40 MG 1700 08/27 1700 AC 08/28 PO 1622 Azithromycin 500 MG Q24H 08/27 2330 AC 08/28 Sodium Chloride 250 ML IV 08/31 0029 2319 Budesonide/ 2 PUF BID 08/27 1000 AC 08/28 Formoterol Fumarate INH 2118 Clopidogrel Bisulfate 75 MG Q48 08/27 1000 AC 08/27 PO 1014 Diltiazem HCl 180 MG BID 08/27 1000 AC 08/28 PO 2118 Enoxaparin Sodium 40 MG DAILY 08/27 1000 AC 08/28 SC 0835 Furosemide 20 MG ONCE ONE 08/28 1630 DC 08/28 IV 08/28 1631 1622 Furosemide 40 MG .STK-MED ONE 08/28 1621 DC IV 08/28 1622 Guaifenesin 600 MG Q12 08/27 1000 AC 08/28 PO 2118 Insulin Aspart 0 TIDAC 08/27 0800 AC 08/29 SC 0743 Loratadine 10 MG DAILY 08/29 1000 AC PO Loratadine 10 MG DAILY 08/27 1000 DC 08/28 PO 1159 Losartan Potassium 100 MG DAILY 08/27 1000 AC 08/28 PO 0838 Methylprednisolone 40 MG BID 08/28 2200 DC 08/28 IV 08/28 2300 2119 Methylprednisolone 40 MG Q8 08/27 1400 DC 08/28 IV 08/31 0601 0513 Morphine Sulfate 1 MG Q4P PRN 08/27 0415 AC IV Patient Medication 1 ED .STK-MED ONE 08/28 1402 DC Teaching ED 08/28 1403 Prednisone 50 MG DAILY 08/29 1000 AC PO Tiotropium [place] 1 PUF DAILY 08/27 1000 AC 08/28 INH 0825 Assessment/Plan Assessment: Mr. Gold is a 76-year-old man with a past history of COPD on 3 L oxygen, type 2 diabetes, prior coronary artery disease status post PCI with stent (RCA) is being evaluated for worsening shortness of breath likely from acute hypoxic respiratory failure secondary to exacerbation of COPD. At this time, unsure of the precipitant. Differential diagnosis: #1 acute exacerbation of COPD #2 CHF Below is the problem list and plan: History of coronary artery disease- #1 acute hypoxic respiratory failure-secondary to acute exacerbation of COPD. Currently on albuterol, Spriva and Symbicort. Likely worsening COPD could be part of disease progression, from noncompliance of supplemental oxygen use. Still reports Exertional shortness of breath and his O2 demand at rest increased to 4 lit. * continue the same managemet. * continue the same dose of PO prednisone as his O2 increased to 4 lit last night * Continue Aaithromycin #2 history of coronary artery disease and supraventricular tachycardia-plan to continue atenolol, diltiazem. Continue antiplatelet medications-currently on dual antiplatelet therapy. Unsure of the reason, we have to confirm as the patient had stent placed more than an year ago. Echocardiogram results reviewed -did not show any ventricular dysfunction. Presence of pedal edema, with normal kidney function raises the possibility of cor-pulmonale secondary to COPD. Continue lasix 20 mg po daily. #3 hypertension-continue losartan. Blood pressure adequately controlled on current regimen. Restart a regimen at the time of discharge. #4 diabetes-currently on insulin sliding scale. Blood sugars in the higher range likely because of Solu-Medrol. Restart oral hypoglycemic drugs at the time of discharge. Problem List: 1. Tachycardia 2. COPD exacerbation 3. CAD (coronary artery disease) 4. Non-insulin dependent type 2 diabetes mellitus Pain Ratin Pain Location: none Pain Goal: Remain pain free Pain Plan: none Tomorrow's Labs & Rationales: cb bep DVT/Prophylaxis: pharmacological GREGORIA VAN MD 08/29/16 0959: Attending MD Review Statement Attending Statement Attending MD Statement: examined this patient, discuss w/resident/PA/WATER RESOURCE PROJECT MANAGER, agreed w/resident/PA/WATER RESOURCE PROJECT MANAGER, reviewed EMR data (avail), discussed with nursing Attending Assessment/Plan: Patient feels well and feels ready to go home. He says he knows himself very well and as long as he is not exerting, he does fine on his 3 L of oxygen. I explained Dr Duncan's recommendations of the prednisone taper of 50 mg over 10 days. I also explained the need to finish the course of azithromycin. He has refused home care services and COPD clinic and says he prefers to follow with Dr. Duncan in the office. He is a 76-year-old male with diabetes, coronary artery disease and peripheral arterial disease on dual antiplatelet therapy, COPD with chronic respiratory failure, cor pulmonale and pedal edema on 3 L of oxygen with emphysema. He is here with an acute COPD exacerbation and recent right middle lobe pneumonia and the plan is discharge today with close outpatient follow-up.
[2016-08-29 07:20] VITALS: BP 108/58
[2016-08-29 09:58] VITALS: BP 110/64
[2016-08-29] MEDS ORDERED: AZITHROMYCIN500 M3 PO (10:01)
[2016-08-29] MEDS ORDERED: PREDNISONE10 M2 PO (10:01)
--- NOTE | 2016-08-29 12:49 | PN- Pulmonary ---
Subjective HPI/Critical Care Issues: pt seen and examined anticipating discharge doing well ambulating and comfortable Objective Current Medications: Current Medications Sig/Alisha Start time Last Medication Dose Route Stop Time Status Admin Acetaminophen 650 MG Q6P PRN 08/27 0415 AC PO Acetaminophen 1,000 MG Q6P PRN 08/27 0415 IV Albuterol Sulfate 3 ML BID 08/27 2200 AC 08/29 INH 0929 Albuterol Sulfate 2 PUF Q6-PRN PRN 08/27 0130 AC INH Aspirin Buffered 81 MG AT BEDTIME 08/27 2200 AC 08/28 PO 2118 Atenolol 50 MG BID 08/27 0126 AC 08/29 PO 0957 Atorvastatin Calcium 40 MG 1700 08/27 1700 AC 08/28 PO 1622 Azithromycin 500 MG Q24H 08/27 2330 AC 08/28 Sodium Chloride 250 ML IV 08/31 0029 2319 Budesonide/ 2 PUF BID 08/27 1000 AC 08/29 Formoterol Fumarate INH 0959 Clopidogrel Bisulfate 75 MG Q48 08/27 1000 AC 08/29 PO 0958 Diltiazem HCl 180 MG BID 08/27 1000 AC 08/29 PO 0958 Enoxaparin Sodium 40 MG DAILY 08/27 1000 AC 08/29 SC 0958 Furosemide 20 MG ONCE ONE 08/28 1630 DC 08/28 IV 08/28 1631 1622 Furosemide 40 MG .STK-MED ONE 08/28 1621 DC IV 08/28 1622 Guaifenesin 600 MG Q12 08/27 1000 AC 08/29 PO 0958 Insulin Aspart 0 TIDAC 08/27 0800 AC 08/29 SC 0743 Loratadine 10 MG DAILY 08/29 1000 AC 08/29 PO 0959 Loratadine 10 MG DAILY 08/27 1000 DC 08/28 PO 1159 Losartan Potassium 100 MG DAILY 08/27 1000 AC 08/29 PO 0958 Methylprednisolone 40 MG BID 08/28 2200 DC 08/28 IV 08/28 2300 2119 Morphine Sulfate 1 MG Q4P PRN 08/27 0415 IV Patient Medication 1 ED .STK-MED ONE 08/28 1402 MS Teaching ED 08/28 1403 Prednisone 50 MG DAILY 08/29 1000 AC 08/29 PO 0959 Tiotropium [place] 1 PUF DAILY 08/27 1000 AC 08/29 INH 0959 Vital Signs & I&O Last 24 Hrs of Vitals and I&O: Vital Signs Date Time Temp Pulse Resp B/P B/P Pulse O2 O2 Flow FiO2 Mean Ox Delivery Rate 08/29 0958 81 110/64 08/29 0957 81 110/64 08/29 0933 96 Nasal 3.0L Cannula 08/29 0800 Nasal 4.0L Cannula 08/29 0720 97.8 70 20 108/58 94 Nasal 4.0L Cannula 08/29 0000 Nasal 4.0L Cannula 08/28 2250 98.2 91 20 124/62 97 Nasal Cannula 08/28 2118 124/62 08/28 2051 87 Nasal 3.0L Cannula 08/28 1600 Nasal 3.0L Cannula 08/28 1430 97.1 86 20 110/58 92 Nasal 3.0L Cannula Exam Other Physical Findings: Gen - alert and awake HEENT - NCAT CVS - S1, S2, no murmurs, rubs or gallops Lungs - rare rhonchi Abdomen - soft, non-tender, bs+ Ext - no edema, no cyanosis Impression/Plan Impression/Plan Impression/Plan: Impression 76 year old man * Acute COPDE * hypoxemia secondary to pna and COPD exacerbation Plan -f/u Dr. Duncan upon dc -monitor o2 -steroid taper as ordered -nebs/inhalers okay for dc
--- NOTE | 2016-08-30 20:48 | Discharge Summary ---
Visit Information Visit Dates Admission Date: 08/26/16 Discharge Date: 08/29/16 Hospital Course Course Attending Physician: GEOFFREY RYAN MD Primary Care Physician: STEWART JONES MD Hospital Course: Mr. Gold is 76-year-old male with past medical history significant for COPD on 3 L oxygen, type 2 diabetes, hypertension, CAD status post PCI with stent (RCA) on dual antiplatelet therapy, supraventricular tachycardia who presented to ED with CC of worsening shortness of breath. Patient was admitted to general medical floor for evaluation of acute hypoxic respiratory failure secondary to exacerbation of COPD. On admission Vitals: Afebrile, pulse 90s, RR 22, blood pressure 142/76, saturating 87% on 3 L upon arrival, saturation improved to 94% on 4 L. Labs: WBC 11.6, neutrophils 81%, hemoglobin 12.2, platelet 206, BMP unremarkable , lactate 1.1, proBNP 327, troponin less than 0.01, LFT unremarkable, INR 1.29. #Acute hypoxic respiratory failure-secondary to acute exacerbation of COPD. Patient was treated with IV Solu-Medrol, IV azithromycin, oxygen supplementation . Sputum culture was unobtainable, blood culture negative. Patient was kept on albuterol, Spriva and Symbicort. Chest x-ray was obtained on admission that revealed pulmonary emphysema, chronic coarsening of the interstitium notably within the bilateral lung bases, no signs of consolidation. Steroids was switched to prednisone on discharge with taper schedule. Patient was instructed to follow up with Dr. Jones within 1-2 weeks after discharge. Allergies: Coded Allergies: No Known Allergies (05/25/16) Disposition Summary Disposition Principal Diagnosis: Acute hypoxic respiratory failure Additional Diagnosis: COPD exacerbation Discharge Disposition: home or self care Discharge Instructions General Discharge Information Code Status: Full Code Patient's Diet: Diabetic diet Patient's Activity: As tolerated Follow-Up Instructions/Appts: #1 please follow-up with your primary care doctor within 1-2 weeks of discharge. #2 please follow-up with your lung Dr.-Madhu Perla MD within 1-2 weeks of discharge. Follow prednisone taper as below: 08/29-08/30 40 mg 08/31-09/01 30 mg 09/02-09/03 20 mg 09/04-09/05 10 mg Then STOP. Medications at Discharge Discharge Medications: Continue taking these medications: Glipizide (Glipizide ER) 5 MG TAB.ER.24 1 Tablet ORAL DAILY Qty = 90 Comments: NOT GIVEN Clopidogrel Bisulfate (Clopidogrel) 75 MG TABLET 1 Tablet ORAL EVERY 48 HOURS (Every 2 days) Qty = 45 Comments: LAST GIVEN 05/26/16 @ 1500 Irbesartan (Irbesartan) 300 MG TABLET 1 Tablet ORAL DAILY Qty = 90 Comments: Last Taken: 08/29/16 Time: 10 AM Atorvastatin Calcium (Atorvastatin Calcium) 40 MG TABLET 1 Tablet ORAL DAILY Qty = 90 Comments: Last Taken: 08/28/16 Time: 5 PM Metformin HCl (Metformin HCl) 1,000 MG TABLET 1 Tablet ORAL TWICE DAILY Qty = 180 Comments: Last Taken: NOT GIVEN Time: Diltiazem HCl (Diltiazem 24HR ER) 180 MG CAP.ER.24H 1 Capsule ORAL TWICE DAILY Qty = 180 Comments: LAST GIVEN 05/27/16 @ 1000 Budesonide/Formoterol Fumarate (Symbicort 160-4.5 Mcg Inhaler) 160 MCG-4.5 MCG/ ACTUATION HFA.AER.AD 2 Puff Inhale through mouth TWICE DAILY Qty = 10 Comments: LAST GIVEN 08/29/16 10 AM Tiotropium [place] (Spiriva) 18 MCG CAP.W.DEV 1 Capsule Inhale through mouth DAILY Qty = 30 Comments: LAST GIVEN 08/29/16 @ 1000 AM Aspirin (Ecotrin*) 81 MG TABLET.DR 1 Tablet ORAL DAILY Comments: Last Taken: 08/29/16 Time: 10 PM Atenolol (Atenolol) 50 MG TABLET 1 Tablet ORAL TWICE DAILY Qty = 180 Comments: Last Taken: 08/29/16 Time: 10 AM Albuterol Sulfate (Ventolin Hfa) 90 MCG HFA.AER.AD 2 Puff Inhale through mouth as needed for RESPIRATORY Comments: Last Taken: NOT GIVEN Time: Multivit-Min/FA/Lycopen/Lutein (Centrum Silver Men Tablet) 300 MCG-600 MCG-300 MCG TABLET 1 Tablet ORAL DAILY Comments: Last Taken: NOT GIVEN Time: Start taking the following new medications: Azithromycin (Azithromycin) 500 MG TABLET 1 Tablet ORAL DAILY Qty = 3 No Refills Instructions: . Comments: Last Taken: 08/28/16 Time: 10 PM Prednisone (Prednisone) 10 MG TABLET 1 Tablet ORAL DAILY Qty = 20 No Refills Instructions: Then Stop Comments: Last Taken: 08/29/16 Time: 10 AM Copies To: PERLA JACKMAN,STEWART Bahena
== END 2016-08-29 12:59 | DRG 190 ==
LOC: ERH 21:05 → 2NA 23:41 → ERHI 23:41 → 2NA 23:41 → ENRESERV 08-27 09:36 → ERHI 08-27 10:08 → ENTRNSPT 08-27 10:48 → EDTRNSPTTYP 08-27 11:20 → EDTRNSPTSTS 08-27 11:20 → EDTRNSPT 08-27 11:28 → 2NA 08-27 11:34 → CMPTRNSPT 08-27 11:45 → ENPENDDIS 08-29 10:11 → 2NA 08-29 12:59
PROVIDERS: Emergency Medicine; Preventive Medicine Public Health & General Preventive Medicine; ADMIT Internal Medicine
DX: J44.0 Chronic obstructive pulmonary disease with (acute) lower respiratory infection (principal); J96.21 Acute and chronic respiratory failure with hypoxia; J18.9 Pneumonia, unspecified organism; Z99.81 Dependence on supplemental oxygen; I27.81 Cor pulmonale (chronic); J44.1 Chronic obstructive pulmonary disease with (acute) exacerbation; I47.1 Supraventricular tachycardia; E11.9 Type 2 diabetes mellitus without complications; I25.10 Atherosclerotic heart disease of native coronary artery without angina pectoris; E78.5 Hyperlipidemia, unspecified; I73.9 Peripheral vascular disease, unspecified; Z79.84 Long term (current) use of oral hypoglycemic drugs; Z87.891 Personal history of nicotine dependence
CPT/HCPCS: 2NASP; ERO; 82436; 87040; 87070; 93005; 93010; 96365; 96375; J0131; J0456; J0696; J1650; J1940; J2920; J2930; J3490; J7040

== ENCOUNTER 2017-04-21 19:51 | Emergency (ER) | payer OTHER, MEDICARE ==
[~2017-04-21] VITALS: Ht 172.7 cm; Wt 78.0 kg
[~2017-04-21 19:51] MED LIST changes: +AZITHROMYCIN500 M3 PO; +CENTRUM SILVER1 EAC4 PO; +ELIQUIS5 M1 PO; +METOPROLOL TA37.5 MG PO; +PREDNISONE10 M2 PO; +VENTOLIN HFA18 GM INH
--- NOTE | 2017-04-21 20:41 | ED CARDIAC/CP/PALPITATIONS ---
History of Present Illness General Chief Complaint: General Adult Stated Complaint: BIBA FOR FAST HEART RATE AND A FIB Source: patient, old records, EMS Exam Limitations: no limitations Vital Signs & Intake/Output Vital Signs & Intake/Output Vital Signs Date Time Temp Pulse Resp B/P B/P Pulse O2 O2 Flow FiO2 Mean Ox Delivery Rate 04/21 2150 97.9 99 18 114/69 98 Nasal 3.0L Cannula 04/21 2126 Nasal 3.0L Cannula 04/21 1951 97.7 92 22 125/67 91 Nasal 3.0L Cannula Allergies Coded Allergies: No Known Allergies (02/15/17) Reconcile Medications Albuterol Sulfate (Ventolin Hfa) 90 MCG HFA.AER.AD 2 PUF INH PRN RESPIRATORY (Reported) Apixaban (Eliquis) 5 MG TABLET 1 TAB PO BID afib Aspirin (Ecotrin*) 81 MG TABLET.DR 1 TAB PO DAILY HEART HEALTH (Reported) Atorvastatin Calcium 40 MG TABLET 1 TAB PO DAILY CHOLESTEROL (Reported) Budesonide/Formoterol Fumarate (Symbicort 160-4.5 Mcg Inhaler) 160 MCG-4.5 MCG/ ACTUATION HFA.AER.AD 2 PUF INH BID BREATHING PROBLEMS (Reported) Diltiazem HCl (Diltiazem 24HR ER) 180 MG CAP.ER.24H 1 CAP PO BID HEART ( Reported) Furosemide 20 MG TABLET 1 TAB PO BID FLOUID (Reported) Glipizide (Glipizide ER) 5 MG TAB.ER.24 1 TAB PO DAILY DM (Reported) Irbesartan 300 MG TABLET 1 TAB PO DAILY HEART (Reported) Metformin HCl 1,000 MG TABLET 1 TAB PO BID DM (Reported) Metoprolol Tartrate (Lopressor) 50 MG TABLET 1 TAB PO BID HTN/ARRYTHMIA ( Reported) Multivit-Min/FA/Lycopen/Lutein (Centrum Silver Men Tablet) 300 MCG-600 MCG-300 MCG TABLET 1 TAB PO DAILY SUPPLEMENT (Reported) Tiotropium [place] (Spiriva) 18 MCG CAP.W.DEV 1 CAP INH DAILY BREATHING PROBLEMS (Reported) Core Measure Meds Pre-Hospital Eliquis Triage Note: BIBA FOR RAPID HEART RATE. PT WITH HISTORY OF ARRYHTMIA, PT THINKS IT MAY BE AFIB. FORGOT TO TAKE MEDS THIS MORNING AND LATER IN THE DAY, FELT SICK. PT CALLED 911. WAS FOUND TO HAVE AFIB WITH VENTRICULAR RATE IN 140S AND 150S. WAS GIVEN 15MG IV DILTIAZEM BY EMS. UPON ARRIVAL TO ED PT IN AFIB WITH RATE 115. ON HOME O2 OF 3 LITERS NC WITH SATS 96%. AWAKE, ALERT ORIENTED. DENIES CHEST PAIN. STATES HE FEELS BETTER BUT NOT BACK TO NORMAL STATE OF HEALTH. SKIN WARM AND MOIST. Triage Nurses Notes Reviewed? yes Onset: Just prior to arrival Duration: minute(s):, better, constant Timing: recent history Quality/Severity: severe Location: substernal Radiation: no radiation Activities at Onset: rest Prior Chest Pain/Card Workup: cardiac cath, echocardiography, stress test Modifying Factors: Improves With: rest. Worsens With: movement. Nitro Today/Relief: no nitro taken today Aspirin Today: 81 mg x 2, provided at home Associated Symptoms: dizziness, weakness HPI: 12 hours prior to admission patient forgot to take his morning medications due to family emergency. Prior to admission he was checking his pulse ox reading and his heart rate registered 180. He was feeling weak and short of breath at the time. He denies fever chills nausea vomiting diarrhea abdominal pain chest pain headache dysuria rash bleeding. Past History Travel History Traveled to [place] past 21 day No Medical History Any Pertinent Medical History? see below for history Neurological: NONE EENT: NONE Cardiovascular: CAD, hypertension, hyperlipidemia, PVD, carotid artery stenosis supraventricular tachycardia Respiratory: COPD, pneumonia Gastrointestinal: NONE Hepatic: NONE Renal: NONE Musculoskeletal: NONE Psychiatric: NONE Endocrine: diabetes Blood Disorders: NONE Cancer(s): NONE HOME MANAGER/Reproductive: NONE History of MRSA: No History of VRE: No History of CDIFF: No Influenza Vaccine: 02/01/17 Surgical History Surgical History: tonsillectomy mastoidectomy RCA stent placement (2004) left CEA (2005) L CEA Psychosocial History Who do you live with Patient/Self Services at Home Oxygen What is your primary language Y[place]ut Tobacco Use: Quit >30 days ago ETOH Use: occasional use Illicit Drug Use: denies illicit drug use Family History Family History, If Any: Relation not specified for: *No pertinent family history Hx Contributory? No Review of Systems Review of Systems Constitutional: Reports: see HPI, weakness. EENTM: Reports: no symptoms. Respiratory: Reports: see HPI, short of breath. Cardiovascular: Reports: see HPI, palpitations. GI: Reports: no symptoms. Genitourinary: Reports: no symptoms. Musculoskeletal: Reports: no symptoms. Skin: Reports: no symptoms. Neurological/Psychological: Reports: no symptoms. Hematologic/Endocrine: Reports: no symptoms. Immunologic/Allergic: Reports: no symptoms. All Other Systems: Reviewed and Negative Physical Exam Physical Exam General Appearance: well developed/nourished, alert, awake, anxious, mild distress, obese Head: atraumatic, normal appearance Eyes: Bilateral: normal appearance, PERRL, EOMI. Ears, Nose, Throat: normal pharynx, normal ENT inspection, hearing grossly normal, moist mucus membranes Neck: normal inspection, supple, full range of motion, no midline tenderness Respiratory: normal breath sounds, chest non-tender, no respiratory distress, quiet respiration, lungs clear Cardiovascular: normal peripheral pulses, tachycardia, irregularly irregular Peripheral Pulses: 4+ carotid (R), 4+ carotid (L) Gastrointestinal: normal bowel sounds, soft, non-tender, no organomegaly Back: normal inspection, normal range of motion, no vertebral tenderness Extremities: normal inspection, normal capillary refill, normal range of motion, no edema, no ligament instability Neurologic/Psych: no motor/sensory deficits, awake, alert, oriented x 3, normal gait, normal mood/affect, stretcher helper II-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 Skin: intact, normal color, warm/dry Lymphatic: no anterior cervical divina Core Measures ACS in differential dx? Yes CVA/TIA Diagnosis No Sepsis Present: No Sepsis Focused Exam Completed? No Progress Differential Diagnosis: atrial fibrillation, hyperkalemia, hypovolemia Plan of Care: Orders Procedure Date/time Status TROPONIN LEVEL 04/21 2023 Complete PARTIAL THROMBOPLASTIN TIME 04/21 2023 Complete PROTHROMBIN TIME 04/21 2023 Complete COMPREHENSIVE METABOLIC PANEL 04/21 2023 Complete CBC WITHOUT DIFFERENTIAL 04/21 2023 Complete EKG 04/21 1999 Active Laboratory Tests 04/21/172028: Anion Gap 11, Estimated GFR > 60, BUN/Creatinine Ratio 16.3, Glucose 230 H, Calcium 8.8, Total Bilirubin 0.3, AST 23, ALT 33, Alkaline Phosphatase 57, Troponin I < 0.01, Total Protein 6.2 L, Albumin 3.8, Globulin 2.4, Albumin/ Globulin Ratio 1.6, PT 12.5, INR 1.19 H, APTT 32, CBC w Diff NO MAN DIFF REQ, RBC 3.86 L, MCV 93.5, MCH 31.1 H, MCHC 33.2, RDW 13.8, MPV 8.0, Gran % 78.7 H , Lymphocytes % 11.6 L, Monocytes % 8.0, Eosinophils % 1.2, Basophils % 0.5, Absolute Granulocytes 7.0 H, Absolute Lymphocytes 1.0 L, Absolute Monocytes 0.7 H, Absolute Eosinophils 0.1, Absolute Basophils 0 Initial ED EKG: AFIB, nonspecific ST T wave chg Prior EKG: changed Rhythm Strip: atrial fibrillation Departure Departure Time of Disposition: 2140 Disposition: HOME OR SELF CARE Condition: Stable Clinical Impression Primary Impression: Atrial fibrillation with rapid ventricular response Referrals: Batool JACKMAN,Salbador Duncan MD,Jatin Bahena (PCP/Family) Departure Forms: Customer Survey General Discharge Information Critical Care Note Critical Care Note Critical Care Time: 30-74 min (30)
[2017-04-21 20:52] LABS: ABSOLUTE BASOPHIL COUNT 0 /CUMM (0.0-0.2); ABSOLUTE EOSINOPHIL COUNT 0.1 /CUMM (0.0-0.7); ABSOLUTE MONOCYTE COUNT 0.7 /CUMM (0.10-0.60); BASOPHIL % 0.5 % (0.0-2.0); EOSINOPHIL % 1.2 % (0-5); GRANULOCYTE % 78.7 % (42.2-75.2); MEAN CORPUSCULAR HGB 31.1 PG (27.0-31.0); MEAN CORPUSCULAR HGB CONC 33.2 G/DL (33.0-37.0); MEAN CORPUSCULAR VOLUME 93.5 FL (80.0-94.0); PLATELET COUNT 221 /CUMM (130-400); RBC DISTRIBUTION WIDTH 13.8 % (11.5-14.5); RED BLOOD CELL CT 3.86 /CUMM (4.70-6.10); WHITE BLOOD CELL COUNT 8.9 /CUMM (4.8-10.8)
[2017-04-21 21:21] LABS: PT 12.5 SEC (9.4-12.5); PTT 32 SEC (25-37)
[2017-04-21] MEDS ORDERED: LOPRESSOR50 M1 PO (21:50)
[2017-04-21 21:51] VITALS: BP 114/69
[2017-04-21] MEDS ORDERED: FUROSEMIDE20 M1 PO (21:51)
== END 2017-04-21 22:30 ==
LOC: ERH 19:51
PROVIDERS: Emergency Medicine
DX: I48.91 Unspecified atrial fibrillation (principal)
CPT/HCPCS: 93005; 93010

== ENCOUNTER 2017-06-15 18:48 | Observation (INO) | payer OTHER, MEDICARE ==
[~2017-06-15] VITALS: Ht 170.2 cm; Wt 81.1 kg
[~2017-06-15 18:48] MED LIST changes: +FUROSEMIDE20 M1 PO; +LOPRESSOR50 M1 PO
--- NOTE | 2017-06-15 19:10 | ED GENERAL ADULT ---
History of Present Illness General Chief Complaint: General Adult Stated Complaint: PER PT "I HAVE A-FIB AND HR IS UP AROUND 175" Source: patient Exam Limitations: no limitations Vital Signs & Intake/Output Vital Signs & Intake/Output Vital Signs Date Time Temp Pulse Resp B/P B/P Pulse O2 O2 Flow FiO2 Mean Ox Delivery Rate 06/16 2227 98 143/68 06/16 2227 96.8 98 18 143/68 94 Nasal 3.0L Cannula 06/16 2127 111 142/65 06/15 2125 111 18 142/67 94 Nasal 3.0L Cannula 06/15 2010 128 127/68 06/16 1955 129 18 127/68 96 Nasal 4.0L Cannula 06/15 1929 Nasal 2.0L Cannula 06/15 1925 162 131/67 06/15 1912 97.3 167 18 128/58 93 Nasal 3.0L Cannula Allergies Coded Allergies: No Known Allergies (02/15/17) Reconcile Medications Albuterol Sulfate (Ventolin Hfa) 90 MCG HFA.AER.AD 2 PUF INH PRN RESPIRATORY (Reported) Apixaban (Eliquis) 5 MG TABLET 1 TAB PO BID afib Aspirin (Ecotrin*) 81 MG TABLET.DR 1 TAB PO DAILY HEART HEALTH (Reported) Atorvastatin Calcium 40 MG TABLET 1 TAB PO DAILY CHOLESTEROL (Reported) Budesonide/Formoterol Fumarate (Symbicort 160-4.5 Mcg Inhaler) 160 MCG-4.5 MCG/ ACTUATION HFA.AER.AD 2 PUF INH BID BREATHING PROBLEMS (Reported) Diltiazem HCl (Diltiazem 24HR ER) 180 MG CAP.ER.24H 1 CAP PO BID HEART ( Reported) Furosemide 20 MG TABLET 1 TAB PO BID FLOUID (Reported) Glipizide (Glipizide ER) 5 MG TAB.ER.24 1 TAB PO DAILY DM (Reported) Irbesartan 300 MG TABLET 1 TAB PO DAILY HEART (Reported) Metformin HCl 1,000 MG TABLET 1 TAB PO BID DM (Reported) Metoprolol Tartrate (Lopressor) 50 MG TABLET 1 TAB PO BID HTN/ARRYTHMIA ( Reported) Multivit-Min/FA/Lycopen/Lutein (Centrum Silver Men Tablet) 300 MCG-600 MCG-300 MCG TABLET 1 TAB PO DAILY SUPPLEMENT (Reported) Tiotropium [place] (Spiriva) 18 MCG CAP.W.DEV 1 CAP INH DAILY BREATHING PROBLEMS (Reported) Triage Note: PT TO TRIAGE STATING "I'M IN AFIB." HX OF. PER PT HE MISSED HIS CARDIZEM TODAY, REMEMBERED JUST DOCTOR OF NAPRAPATHIC MEDICINE AND TOOK HIS USUAL DOSE. 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 IV ESTABLISHED #20 LAC FOR QUICK ACCESS AND BLOOD DRAW. MD BAPTISTE AT BEDSIDE. PT ON 3L NC BASELINE. Triage Nurses Notes Reviewed? yes Onset: Abrupt Duration: hour(s): Timing: recent history HPI: 06/15/17 9 PM 77-year-old man presents to the emergency department for palpitations and weakness. The patient states he has a history of rapid atrial fibrillation. He says that he forgot to take his Lopressor and Cardizem this morning. He started to feel palpitations and instead of taking the medications in the morning he took them at 6 PM tonight. He denies any chest pain or shortness of breath. He does say that he has a history of COPD. Past History Travel History Traveled to [place] past 21 day No Medical History Any Pertinent Medical History? 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 No Review of Systems Review of Systems Constitutional: Denies: fever. EENTM: Denies: visual changes. Respiratory: Denies: short of breath. Cardiovascular: Reports: palpitations. Denies: chest pain. GI: Denies: abdominal pain. Genitourinary: Reports: no symptoms. Musculoskeletal: Reports: no symptoms. Skin: Reports: no symptoms. Neurological/Psychological: Denies: headache. Hematologic/Endocrine: Reports: no symptoms. Immunologic/Allergic: Reports: no symptoms. Physical Exam Physical Exam General Appearance: alert, awake, anxious, mild distress Head: atraumatic, normal appearance Eyes: Bilateral: normal appearance, PERRL, EOMI. Ears, Nose, Throat: normal pharynx, normal ENT inspection Neck: normal inspection, supple Respiratory: normal breath sounds, chest non-tender, no respiratory distress Cardiovascular: irregularly irregular Peripheral Pulses: 3+ radial (R), 3+ radial (L) Gastrointestinal: soft, non-tender Back: decreased range of motion Extremities: pedal edema Neurologic/Psych: no motor/sensory deficits, awake, alert, oriented x 3 Skin: intact, normal color, warm/dry Core Measures ACS in differential dx? No CVA/TIA Diagnosis: No Sepsis Present: No Sepsis Focused Exam Completed? No Progress Differential Diagnoses I considered the following diagnoses in my evaluation of the patient: [Rapid A. fib, medication noncompliance, pulmonary embolism, exacerbation of COPD, pneumonia] Plan of Care: Orders Procedure Date/time Status EKG 06/15 2157 Active Saline Lock 06/15 1910 Active TROPONIN LEVEL 06/15 1910 Complete PROTHROMBIN TIME 06/15 1910 Complete COMPREHENSIVE METABOLIC PANEL 06/15 1910 Complete CBC WITHOUT DIFFERENTIAL 06/15 1910 Complete EKG 06/15 1850 Active Laboratory Tests 06/15/171912: Anion Gap 14, Estimated GFR > 60, BUN/Creatinine Ratio 20.0, Glucose 191 H, Calcium 9.3, Total Bilirubin 0.5, AST 22, ALT 33, Alkaline Phosphatase 72, Troponin I < 0.01, Total Protein 6.9, Albumin 4.0, Globulin 2.9, Albumin/ Globulin Ratio 1.4, PT 13.1 H, INR 1.20 H, CBC w Diff NO MAN DIFF REQ, RBC 4.32 L, MCV 94.2 H, MCH 31.0, MCHC 32.9 L, RDW 13.3, MPV 8.1, Gran % 56.1, Lymphocytes % 31.6, Monocytes % 8.7, Eosinophils % 3.1, Basophils % 0.5, Absolute Granulocytes 4.5, Absolute Lymphocytes 2.5, Absolute Monocytes 0.7 H, Absolute Eosinophils 0.3, Absolute Basophils 0 Initial ED EKG: RAPID AFIB Repeat EKG: unchanged (HR 100) Departure Departure Disposition: STILL A PATIENT Condition: Stable Clinical Impression Primary Impression: Rapid atrial fibrillation Referrals: Perla JACKMAN,Jatin Bahena Departure Forms: Customer Survey General Discharge Information Comments 06/15/17 10:17 PM The patient's repeat EKG shows a heart rate of 100. There is no significant ST- T wave changes from the old; in my opinion. The patient has no chest pain or shortness of breath. He was given 50 mg of metoprolol by mouth in addition to the IV Cardizem given. He is in no acute distress and gives a good history of noncompliance with meds. I discussed his care with the on-call land conservation specialist Dr. Abbasi. He is concerned that there is new lateral ST segments that are elevated but nonspecific. He is recommending the patient be placed in inpatient observation for serial troponins and cardiology evaluation in the a.m. Observation Note Spoke With: Edwige Freedman MD Physician Advisor Notified: INDRA BAPTISTE DO Place Patient In: Non-ED OBS Care Area Rationale for Observation: My rational for observation is as follows [serial troponins, heart rate monitoring, cardiology consultation, likely inpatient echocardiogram]. Critical Care Note Critical Care Note Critical Care Time: 30-74 min
[2017-06-15 19:28] LABS: ABSOLUTE BASOPHIL COUNT 0 /CUMM (0.0-0.2); ABSOLUTE EOSINOPHIL COUNT 0.3 /CUMM (0.0-0.7); ABSOLUTE GRANULOCYTE CT 4.5 /CUMM (1.4-6.5); ABSOLUTE LYMPH COUNT 2.5 /CUMM (1.2-3.4); ABSOLUTE MONOCYTE COUNT 0.7 /CUMM (0.10-0.60); BASOPHIL % 0.5 % (0.0-2.0); EOSINOPHIL % 3.1 % (0-5); GRANULOCYTE % 56.1 % (42.2-75.2); HEMATOCRIT 40.7 % (42-52); MEAN CORPUSCULAR HGB CONC 32.9 G/DL (33.0-37.0); MEAN CORPUSCULAR VOLUME 94.2 FL (80.0-94.0); MEAN PLATELET VOLUME 8.1 FL (7.4-10.4); PLATELET COUNT 257 /CUMM (130-400); RBC DISTRIBUTION WIDTH 13.3 % (11.5-14.5); RED BLOOD CELL CT 4.32 /CUMM (4.70-6.10)
[2017-06-15 19:32] LABS: PT 13.1 SEC (9.4-12.5)
--- NOTE | 2017-06-15 20:02 | RADIOLOGY REPORT ---
EXAMINATION: CHEST 1 VIEW CLINICAL INFORMATION: Atrial fibrillation. COMPARISON: 02/15/2017. TECHNIQUE: An AP view of the chest is provided. FINDINGS: The cardiac silhouette is not enlarged. The mediastinal and hilar contours are unremarkable. There are neither pleural effusions nor pneumothoraces. There are manifestations of COPD. No acute airspace disease is identified. The osseous structures are unremarkable. IMPRESSION: No evidence for acute disease. COPD.
--- NOTE | 2017-06-16 00:18 | History & Physical ---
Jevon Marino MD 06/16/17 0018: General Information and HPI MD Statement: I have seen and personally examined ANDREW DIETZ and documented this H&P. The patient is a 77 year old M who presented with a patient stated chief complaint of worsening shortness of breath. Source of Information: patient, old records Exam Limitations: no limitations History of Present Illness: 77 year old male with past medical history significant for hypertension, hyperlipidemia, diabetes mellitus, severe COPD (on home 3L O2), coronary artery disease (status post RCA stenting in 2004) and supraventricular tachycardia ( 2004), and moderate aortic stenosis last admitted in 02/2017 for SVT and type II NSTEMI and was changed from aspirin and plavix to eliquis 5mg po bid at that time given his elevated CHADSvasc score presents today with atrial fibrillation with rapid ventricular response. He had previously been evaluated by Dr. Grimes for an ablation but did not wish to pursue further intervention. The patient reportedly forgot to take his morning medications today including metoprolol, cardizem and eliquis. The patient reportedly wasn't feeling well later that day , he complained of fatigue, weakness, feeling nauseous, and noticed a relatively minor worsening of his baseline dyspnea. He checked his heart rate with a pulse oximeter and it was reading in the 170s, he thinks knowing his heart rate was that high made him anxious and contributed to his dyspnea. He then rememebered he forgot his medications and took them before coming to the emergency department. He otherwise states he is asymptomatic when his heart rate is fast. Review of systems is positive for a chronic nonproductive cough but negative for fevers, chills, chest pain, palpitations, abdominal pain, vomiting, diarrhea or dysuria. In the emergency department his EKGs show documented SVT with reported possible atrial fibrillation on the monitor. He was given Cardizem IV 10mg and 5mg x 2 in addition to his oral metoprolol. There was some concern to ST segment changes and he was admitted to telemetry under observation status for further management. Allergies/Medications Allergies: Coded Allergies: No Known Allergies (02/15/17) Home Med list Albuterol Sulfate (Ventolin Hfa) 90 MCG HFA.AER.AD 2 PUF INH PRN RESPIRATORY (Reported) Apixaban (Eliquis) 5 MG TABLET 1 TAB PO BID afib Aspirin (Ecotrin*) 81 MG TABLET.DR 1 TAB PO DAILY HEART HEALTH (Reported) Atorvastatin Calcium 40 MG TABLET 1 TAB PO DAILY CHOLESTEROL (Reported) Budesonide/Formoterol Fumarate (Symbicort 160-4.5 Mcg Inhaler) 160 MCG-4.5 MCG/ ACTUATION HFA.AER.AD 2 PUF INH BID BREATHING PROBLEMS (Reported) Diltiazem HCl (Diltiazem 24HR ER) 180 MG CAP.ER.24H 1 CAP PO BID HEART ( Reported) Furosemide 20 MG TABLET 1 TAB PO BID FLOUID (Reported) Glipizide (Glipizide ER) 5 MG TAB.ER.24 1 TAB PO DAILY DM (Reported) Irbesartan 300 MG TABLET 1 TAB PO DAILY HEART (Reported) Metformin HCl 1,000 MG TABLET 1 TAB PO BID DM (Reported) Metoprolol Tartrate (Lopressor) 50 MG TABLET 1 TAB PO BID HTN/ARRYTHMIA ( Reported) Multivit-Min/FA/Lycopen/Lutein (Centrum Silver Men Tablet) 300 MCG-600 MCG-300 MCG TABLET 1 TAB PO DAILY SUPPLEMENT (Reported) Tiotropium [place] (Spiriva) 18 MCG CAP.W.DEV 1 CAP INH DAILY BREATHING PROBLEMS (Reported) Compliance With Home Meds: GOOD Past History Travel History Traveled to [place] past 21 day No Medical History Neurological: NONE EENT: NONE Cardiovascular: CAD, hypertension, hyperlipidemia, PVD, carotid artery stenosis supraventricular tachycardia Respiratory: COPD, pneumonia Gastrointestinal: NONE Hepatic: NONE Renal: NONE Musculoskeletal: NONE Psychiatric: NONE Endocrine: diabetes Blood Disorders: NONE 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 friend Services at Home: Oxygen Primary Language: Frisian Smoking Status: Former Smoker ETOH Use: denies use Illicit Drug Use: denies illicit drug use Functional Ability ADLs Independent: dressing, eating, toileting, bathing. Ambulation: independent Review of Systems Review of Systems Constitutional: Reports: malaise, weakness. Denies: chills, diaphoresis, fever. EENTM: Reports: no symptoms. Cardiovascular: Denies: chest pain, palpitations, peripheral edema, syncope. Respiratory: Reports: cough, short of breath. GI: Reports: no symptoms. Genitourinary: Reports: no symptoms. Musculoskeletal: Reports: no symptoms. Skin: Reports: no symptoms. Neurological/Psychological: Reports: no symptoms. Hematologic/Endocrine: Reports: no symptoms. Immunologic/Allergic: Reports: no symptoms. All Other Systems: Reviewed and Negative Exam & Diagnostic Data Last 24 Hrs of Vital Signs/I&O Vital Signs Date Time Temp Pulse Resp B/P B/P Pulse O2 O2 Flow FiO2 Mean Ox Delivery Rate 06/16 034 95 Nasal 3.0L Cannula 06/16 342 98.0 95 26 138/60 95 Nasal 3.0L Cannula 06/16 0217 96.8 89 18 144/69 96 Nasal 3.0L Cannula 06/16 0033 97.1 78 18 141/74 97 Nasal 3.0L Cannula 06/16 2227 98 143/68 06/16 2227 96.8 98 18 143/68 94 Nasal 3.0L Cannula 06/16 2127 111 142/65 06/15 2125 111 18 142/67 94 Nasal 3.0L Cannula 06/15 2010 128 127/68 06/15 195 129 18 127/68 96 Nasal 4.0L Cannula 06/15 193 Nasal 2.0L Cannula 06/15 192 162 131/67 06/15 1912 97.3 167 18 128/58 93 Nasal 3.0L Cannula Intake & Output 06/16 0800 04 0000 06/15 1600 Intake Total 3 Output Total 500 Balance -497 Intake, IV 3 Output, Urine 500 Patient 81.08 kg Weight Physical Exam General Appearance Alert, Oriented X3, Cooperative, No Acute Distress Cardiovascular Regular Rate, Normal S1, Normal S2, 1/6 systolic murmur at the base Lungs limited air movement with minor expiratory wheezing Abdomen Normal Bowel Sounds, Soft, No Tenderness, No Masses Extremities No Clubbing, No Cyanosis, Normal Pulses, trace LE edema Last 24 Hrs of Labs/Elfego: Laboratory Tests 06/16/17 0326: Troponin I 0.03 06/15/171912: Anion Gap 14, Estimated GFR > 60, BUN/Creatinine Ratio 20.0, Glucose 191 H, Calcium 9.3, Total Bilirubin 0.5, AST 22, ALT 33, Alkaline Phosphatase 72, Troponin I < 0.01, Total Protein 6.9, Albumin 4.0, Globulin 2.9, Albumin/ Globulin Ratio 1.4, PT 13.1 H, INR 1.20 H, CBC w Diff NO MAN DIFF REQ, RBC 4.32 L, MCV 94.2 H, MCH 31.0, MCHC 32.9 L, RDW 13.3, MPV 8.1, Gran % 56.1, Lymphocytes % 31.6, Monocytes % 8.7, Eosinophils % 3.1, Basophils % 0.5, Absolute Granulocytes 4.5, Absolute Lymphocytes 2.5, Absolute Monocytes 0.7 H, Absolute Eosinophils 0.3, Absolute Basophils 0 Microbiology / 0408 UPPER RESP: Surveillance Culture - COLB Diagnostic Data EKG Results SVT HR 160s with nonspecific lateral ST segment changes CXR Results The cardiac silhouette is not enlarged. The mediastinal and hilar contours are unremarkable. There are neither pleural effusions nor pneumothoraces. There are manifestations of COPD. No acute airspace disease is identified. The osseous structures are unremarkable. Assessment/Plan Assessment: 77 year old male with past medical history significant for hypertension, hyperlipidemia, diabetes mellitus, severe COPD (on 3L home O2), coronary artery disease (status post RCA stenting in 2004) and supraventricular tachycardia ( 2004), and moderate aortic stenosis last admitted in 02/2017 for SVT and type II NSTEMI and was changed from aspirin and plavix to eliquis 5mg po bid at that time given his elevated CHADSvasc score presents today with atrial fibrillation with rapid ventricular response. Supraventricular tachycardia possible atrial fibrillation with rapid ventricular response: HR 160s-170s on presentation Responded to a total of 20mg IVP cardizem in the ED Continue cardizem and metoprolol for rate control Serial troponins and EKGs to evaluate for myocardial ischemia Cardiology consultation No echocardiogram at this time, last in 02/2017 Add proBNP Observe on telemetry for further episodes of tachycardia Hypertension: Continue irbesartan, metoprolol, and furosemide CAD: Continue aspirin, statin, and metoprolol Hyperlipidemia: Continue atorvastatin Diabetes mellitus: Hold metformin and glipizide Accuchecks TIDAC/HS Novolog insulin sliding scale COPD: TRC evaluation Oxygen setup on 3L NC continuous at home Continue albuterol spiriva and symbicort Consider addition of short course of steroids Increased work of breathing COPD exacerbation in addition to medication noncompliance could contribute to tachyarrhythmia Diabetic diet DVT ppx-lovenox 40mg subcutaneous daily Full code Patient to remain in observation status on telemetry for further episodes of tachycardia and to rule out myocardial ischemia As Ranked By This Provider Problem List: 1. Rapid atrial fibrillation 2. SVT (supraventricular tachycardia) 3. CAD (coronary artery disease) 4. HTN (hypertension) 5. Non-insulin dependent type 2 diabetes mellitus 6. HLD (hyperlipidemia) Core Measures/Misc (11/29) Acute Coronary Syndrome ACS Diagnosis: No Congestive Heart Failure Congestive Heart Failure Diagnosis No Cerebrovascular Accident CVA/TIA Diagnosis: No VTE (View Protocol) VTE Risk Factors Age>40 No Mechanical VTE Prophylaxis d/t N/A MechProphylax Ordered No VTE Pharm Prophylaxis d/t NA PharmProphylax ordered Sepsis (View protocol) Sepsis Present: No Odilia JACKMAN,Isdcabdullahi 06/16/17 0255: Resident Review Statement Resident Statement: examined this patient, discussed with intern architect, agreed with intern architect Other Findings: 77-year-old male with past medical history significant for HTN, HDL, NIDDM, COPD on 3 L at home, CAD, SVT, and possible A. fib who presented complaining of palpitation and generalized weakness. The patient did not take his morning medication including Lopressor, Cardizem, and AG. His symptoms improved after he took his medication about 6 PM. He denies chest pain, shortness breath, or loss of consciousness. While in the ED EKGs show documented SVT with reported possible atrial fibrillation on the monitor. Assessment and plan: Patient symptom most likely related to not taking his medication. His EKG while in the ED was concerning for lateral leads ST abnormality. Cardiology recommended observing the patient to rule out ACS. His symptom resolved after his medication was administrated. Problem list * Supraventricular tachycardia/possible A. fib * Hypertension * Hyperlipidemia * Avz-phmlyyj-yxajujcww day. His mellitus * COPD * Coronary artery disease * PVD * Carotid stenosis Plan * We will monitor on telemetry as an OBS * Rule out ACS with serial EKG and troponin * Continue home dose of Cardizem and Lopressor * Continue home dose of Eliquis * Continue home dose of aspirin and statin * Hold all oral antihyperglycemic, start insulin SS, diabetic diet, fingerstick glucose * TRC/nebs as needed * Continuous Spiriva, Symbicort and albuterol * Full code Edwige Freedman 06/16/17 0532: Attending MD Review Statement Attending Statement Attending MD Statement: examined this patient, discuss w/resident/PA/CITY DIRECTOR, agreed w/resident/PA/CITY DIRECTOR, reviewed EMR data (avail), reviewed images, amended to note Attending Assessment/Plan: CC: "I am in A. fib " PMH: COPD on 3 L nasal cannula, DM, SVT, CAD S/P stent, HTN, moderate aortic stenosis Patient came to ER stating that "I am in A. fib". Patient states that he forgot to take all his medications this morning, he was fine until this afternoon then he started to notice palpitations, mild difficulty breathing, tiredness and weakness he took his evening medications without much relief so he came to ER. He had mild nausea but no vomiting. He was apparently all right until this morning. Other than mild respiratory difficulty, palpitations and nausea complete ROS unremarkable. His COPD is under control. He was recently evaluated with a Holter monitor and never heard back from insurance administrative assistant. Vitals: Afebrile, pulse 167 on arrival, RR 18, blood pressure 124/58, saturating 93% on 3 L nasal cannula On exam: A O 3, cooperative, no acute distress, neck supple, JVD normal, no lymphadenopathy, mucosa moist, complete neurological examination is unremarkable , trace pedal edema, no obvious skin rashes or inflammation CVS: S1-S2, irregular. RS: Markedly decreased air entry, no obvious crackles. Abdomen: Soft, NT, ND, bowel sounds present. CXR: No evidence for acute disease. COPD. Assessment and plan 77-year-old male with extensive past medical history is multiple comorbidities presented in ER for rapid heart rate. He missed all his home medications this morning, forgot to take them and developed palpitation, mild respiratory discomfort, nausea this afternoon. Tried to take everything medications but heart rate was out of control so he came to ER. He was in SVT when he arrived, heart rate is 167, received 3 doses of diltiazem IV 5, 5, 10 mg followed by 50 mg of metoprolol by mouth. This resulted in rate controlled. Cardiology was called from ER would reviewed the ECG and they were concerned about lateral ST-T segment changes on ECG and suggested telemetry observation to rule out any acute coronary event. + SVT + ST segment abnormality + History of COPD on 3 L nasal cannula, DM, CAD S/P stent, HTN, moderate aortic stenosis - Place in observation on telemetry - Continuous telemetry monitoring - Serial troponin and EKGs - Cardiology consult in a.m. - Continue all his home medication, change oral hypoglycemics to sliding scale insulin - Continue home doses of anticoagulation and Lasix - (patient is really unhappy for hospitalization)
[2017-06-16 03:43] VITALS: BP 138/60
[2017-06-16 08:00] VITALS: BP 150/76
[2017-06-16 09:31] VITALS: BP 146/64
--- NOTE | 2017-06-16 10:11 | Cons- Cardiology ---
General Information and HPI Consulting Request Date of Consult: 06/16/17 Requested By: Jacob Morataya MD Reason for Consult: Atrial fibrillation Source of Information: patient, old records Exam Limitations: no limitations History of Present Illness: The patient is a 77-year-old gentleman with a past medical history of COPD (on home O2), paroxysmal atrial fibrillation (anticoagulated without gross), coronary artery disease (status post remote stenting to the RCA in 2004), hypertension, hyperlipidemia, diabetes mellitus as well as moderate aortic stenosis. He presents to our hospital with an onset of atrial fibrillation with rapid ventricular response, reminiscent to previous visits for the same following a missed medication dose. The patient states that due to an oversight, he did not take his morning medication (states compliance with medications otherwise), and had onset of generalized weakness, fatigue and increasing dyspnea he noted tachycardia on his home pulse oximeter with rates of approximately 170s. The patient subsequently took his medication regimen and presented to the ER wherein he was noted to be in atrial fibrillation with rapid ventricular response. He was given IV Cardizem and oral metoprolol, with subsequent heart rate control and conversion to sinus rhythm. The patient otherwise denies symptoms of chest pains nor palpitations on a regular basis and describes performance of approximately 4 METs of physical activity without difficulty. Due to a recent recurrence of atrial fibrillation in the setting of a skipped medication dose, the patient was referred to electrophysiology, and has an appointment upcoming next week. Allergies/Medications Allergies: Coded Allergies: No Known Allergies (02/15/17) Home Med List: Albuterol Sulfate (Ventolin Hfa) 90 MCG HFA.AER.AD 2 PUF INH PRN RESPIRATORY (Reported) Apixaban (Eliquis) 5 MG TABLET 1 TAB PO BID afib Aspirin (Ecotrin*) 81 MG TABLET.DR 1 TAB PO DAILY HEART HEALTH (Reported) Atorvastatin Calcium 40 MG TABLET 1 TAB PO DAILY CHOLESTEROL (Reported) Budesonide/Formoterol Fumarate (Symbicort 160-4.5 Mcg Inhaler) 160 MCG-4.5 MCG/ ACTUATION HFA.AER.AD 2 PUF INH BID BREATHING PROBLEMS (Reported) Diltiazem HCl (Diltiazem 24HR ER) 180 MG CAP.ER.24H 1 CAP PO BID HEART ( Reported) Furosemide 20 MG TABLET 1 TAB PO BID FLOUID (Reported) Glipizide (Glipizide ER) 5 MG TAB.ER.24 1 TAB PO DAILY DM (Reported) Irbesartan 300 MG TABLET 1 TAB PO DAILY HEART (Reported) Metformin HCl 1,000 MG TABLET 1 TAB PO BID DM (Reported) Metoprolol Tartrate (Lopressor) 50 MG TABLET 1 TAB PO BID HTN/ARRYTHMIA ( Reported) Multivit-Min/FA/Lycopen/Lutein (Centrum Silver Men Tablet) 300 MCG-600 MCG-300 MCG TABLET 1 TAB PO DAILY SUPPLEMENT (Reported) Tiotropium [place] (Spiriva) 18 MCG CAP.W.DEV 1 CAP INH DAILY BREATHING PROBLEMS (Reported) Current Medications: Current Medications Sig/Alisha Start time Last Medication Dose Route Stop Time Status Admin Albuterol Sulfate 2 PUF Q4 PRN 06/16 0300 AC INH Apixaban 5 MG BID 06/16 1000 AC 06/16 PO 0930 Aspirin Buffered 81 MG DAILY 06/16 1000 AC PO Atorvastatin Calcium 40 MG 1700 06/16 1700 AC PO Budesonide/ 2 PUF BID 06/16 1000 AC 06/16 Formoterol Fumarate INH 0931 Diltiazem HCl 180 MG BID 06/16 1000 AC 06/16 PO 0930 Diltiazem HCl 5 MG ONCE ONE 06/15 2114 DC 06/15 IV PUSH 06/158 Diltiazem HCl 5 MG ONCE ONE 06/15 2014 DC 06/15 IV PUSH 06/15 Diltiazem HCl 0 .STK-MED ONE 06/15 1918 DC .ROUTE Diltiazem HCl 10 MG ONCE ONE 06/15 1914 DC 06/15 IV PUSH 06/16 1915 1926 Furosemide 20 MG BID 06/16 1000 AC 06/16 PO 0930 Insulin Aspart 0 TIDAC 06/16 0800 AC SC Losartan Potassium 50 MG DAILY 06/16 1000 AC 06/16 PO 0930 Metoprolol Tartrate 50 MG BID 06/16 1000 AC 06/16 PO 0931 Metoprolol Tartrate 50 MG ONCE ONE 06/15 2230 DC 06/15 PO 06/15 2231 2228 Metoprolol Tartrate 0 .STK-MED ONE 06/15 2230 DC PO Tiotropium [place] 1 PUF DAILY 06/16 1000 AC 06/16 INH 0931 Review of Systems Review of Systems: The review of systems is negative for chest pains, palpitations nor lightheadedness. The remainder of the 14 point review of systems is noncontributory with the exception of above. Past History Travel History Traveled to [place] past 21 day No Medical History Blood Transfusion Hx: Yes Neurological: NONE EENT: NONE Cardiovascular: CAD, hypertension, hyperlipidemia, PVD, carotid artery stenosis supraventricular tachycardia Respiratory: COPD, pneumonia Gastrointestinal: NONE Hepatic: NONE Renal: NONE Musculoskeletal: NONE Psychiatric: NONE Endocrine: diabetes Blood Disorders: NONE Cancer(s): NONE STOVE TENDER/Reproductive: NONE Surgical History Surgical History: tonsillectomy mastoidectomy RCA stent placement (2004) left CEA (2005) L CEA Family History Relations & Conditions If Any: Relation not specified for: *No pertinent family history Psychosocial History Who Do You Live With? friend Services at Home: Oxygen Primary Language: Belarusian Smoking Status: Former Smoker ETOH Use: denies use Illicit Drug Use: denies illicit drug use Functional Ability ADLs Independent: dressing, eating, toileting, bathing. Ambulation: independent Exam & Diagnostic Data Vital Signs and I&O Vital Signs Date Time Temp Pulse Resp B/P B/P Pulse O2 O2 Flow FiO2 Mean Ox Delivery Rate 06/16 0931 95 146/64 06/16 0930 95 146/64 06/16 0343 95 Nasal 3.0L Cannula 06/16 0343 98.0 95 26 138/60 95 Nasal 3.0L Cannula 06/16 0217 96.8 89 18 144/69 96 Nasal 3.0L Cannula 06/16 0033 97.1 78 18 141/74 97 Nasal 3.0L Cannula 06/158 98 143/68 06/16 2227 96.8 98 18 143/68 94 Nasal 3.0L Cannula 06/16 2127 111 142/65 06/15 2125 111 18 142/67 94 Nasal 3.0L Cannula 06/15 2010 128 127/68 / 195 129 18 127/68 96 Nasal 4.0L Cannula 06/15 1930 Nasal 2.0L Cannula 06/15 192 162 131/67 06/15 191 97.3 167 18 128/58 93 Nasal 3.0L Cannula Intake & Output 06/16 1600 06/16 0800 04/04 0000 / 1600 06/15 0800 06/15 0000 Intake Total 150 3 Output Total 275 500 Balance -125 -497 Intake, IV 3 Intake, Oral 150 Number 0 Bowel Movements Output, Urine 275 500 Patient 179 lb Weight Physical Exam: General: Nontoxic, no apparent distress. HEENT: Sclera and conjunctiva within normal limits, without xanthelasmas. Neck: Carotids 2+ without bruits. Respiratory: Decreased breath sounds throughout with scattered expiratory wheezes, without accessory respiratory muscle use. Heart: Regular rate and rhythm, 3/6 systolic decrescendo decrescendo murmur heard best at the right sternal border, without JVD. Abdomen: Soft, nontender, no masses, normoactive bowel sounds. Extremities: Without clubbing, cyanosis, without edema. Neuro: Nonfocal exam, strength, 5 out of 5 Skin: Within normal limits without lesions. Psych: Mood and affect: Normal Labs/Elfego Results: Laboratory Tests 06/16 06/16 06/15 0945 0326 1913 Chemistry Sodium (137 - 145 mmol/L) 143 Potassium (3.5 - 5.1 mmol/L) 4.1 Chloride (98 - 107 mmol/L) 101 Carbon Dioxide (22 - 30 mmol/L) 28 Anion Gap (5 - 16) 14 BUN (9 - 20 mg/dL) 14 Creatinine (0.7 - 1.2 mg/dL) 0.7 Estimated GFR (>60 ml/min) > 60 BUN/Creatinine Ratio (7 - 25 %) 20.0 Glucose (65 - 99 mg/dL) 191 H Calcium (8.4 - 10.2 mg/dL) 9.3 Magnesium (1.6 - 2.3 mg/dL) 1.6 Total Bilirubin (0.2 - 1.3 mg/dL) 0.5 AST (17 - 59 U/L) 22 ALT (21 - 72 U/L) 33 Alkaline Phosphatase (< 127 U/L) 72 Troponin I (<0.11 ng/ml) Pending 0.03 < 0.01 Total Protein (6.3 - 8.2 g/dL) 6.9 Albumin (3.5 - 5.0 g/dL) 4.0 Globulin (1.9 - 4.2 gm/dL) 2.9 Albumin/Globulin Ratio (1.1 - 2.2 %) 1.4 Coagulation PT (9.4 - 12.5 SEC) 13.1 H INR (0.90 - 1.17) 1.20 H Hematology CBC w Diff NO MAN DIFF REQ WBC (4.8 - 10.8 /CUMM) 8.0 RBC (4.70 - 6.10 /CUMM) 4.32 L Hgb (14.0 - 18.0 G/DL) 13.4 L Hct (42 - 52 %) 40.7 L MCV (80.0 - 94.0 FL) 94.2 H MCH (27.0 - 31.0 PG) 31.0 MCHC (33.0 - 37.0 G/DL) 32.9 L RDW (11.5 - 14.5 %) 13.3 Plt Count (130 - 400 /CUMM) 257 MPV (7.4 - 10.4 FL) 8.1 Gran % (42.2 - 75.2 %) 56.1 Lymphocytes % (20.5 - 51.1 %) 31.6 Monocytes % (1.7 - 9.3 %) 8.7 Eosinophils % (0 - 5 %) 3.1 Basophils % (0.0 - 2.0 %) 0.5 Absolute Granulocytes (1.4 - 6.5 /CUMM) 4.5 Absolute Lymphocytes (1.2 - 3.4 /CUMM) 2.5 Absolute Monocytes (0.10 - 0.60 /CUMM) 0.7 H Absolute Eosinophils (0.0 - 0.7 /CUMM) 0.3 Absolute Basophils (0.0 - 0.2 /CUMM) 0 Assessment/Plan Assessment/Plan 77-year-old gentleman with a past medical history of COPD (on home O2), paroxysmal atrial fibrillation (anticoagulated without gross), coronary artery disease (status post remote stenting to the RCA in 2004), hypertension, hyperlipidemia, diabetes mellitus as well as moderate aortic stenosis. He presents to our hospital with an onset of atrial fibrillation with rapid ventricular response, reminiscent to previous visits for the same following a missed medication dose. Atrial fibrillation with rapid ventricular response: The patient has known paroxysmal atrial fibrillation which appears to flare with missed medication doses. As his blood pressure permits, I would attempt to liberalize his regimen. We may increase his dose of diltiazem to 240 mg by mouth twice a day as well as changing his regimen of metoprolol from tartrate at 50 mg twice a day to succinate at 50 mg by mouth twice a day for improved 24- hour coverage. He will follow-up with his wind energy project manager in one week for further discussion and consideration of ablation versus initiation of an antiarrhythmic. Coronary artery disease: Stable, the patient has no anginal symptoms. He will continue on his current medication regimen including atorvastatin, aspirin and a beta farhat Hypertension: Outpatient reports demonstrated improved blood pressure control. We will monitor with his change in control agents. Thank you for allowing us to participate in the care of your patient. Please do not hesitate to contact us further with any questions. Sincerely, Evans Lr MD [facility] Consult Acknowledgment - Thank you for your consult request.
--- NOTE | 2017-06-16 10:40 | PN- Housestaff ---
Thomas Allison MD 06/16/17 1040: Subjective Follow-up For: Atrial Fibrillation with Rapid Ventricular response Tele-Events Since Last Visit: Normal sinus rhythm HR 90s/100s Subjective: Patient seen and examined. He is seen sitting upright in bed resting comfortably watching television maintained on his home dose of supplemental oxygen via nasal cannula. He appears to be in no acute distress. He reports feeling well and denies any new complaints. He reports that he simply missed his morning meds yesterday, and is unsure why; he states that his has never happened before. Specifically he denies any headache, fever, chills, chest pain, palpitations, shortness of breath, nausea, vomiting, or diarrhea. Review of Systems Constitutional: Reports: see HPI. Objective Last 24 Hrs of Vital Signs/I&O Vital Signs Date Time Temp Pulse Resp B/P B/P Pulse O2 O2 Flow FiO2 Mean Ox Delivery Rate 06/16 0931 95 146/64 06/16 0930 95 146/64 06/16 0343 95 Nasal 3.0L Cannula 06/16 034 98.0 95 26 138/60 95 Nasal 3.0L Cannula 06/16 0217 96.8 89 18 144/69 96 Nasal 3.0L Cannula 06/16 0033 97.1 78 18 141/74 97 Nasal 3.0L Cannula 06/16 2227 98 143/68 06/16 2227 96.8 98 18 143/68 94 Nasal 3.0L Cannula 06/16 2127 111 142/65 06/15 2125 111 18 142/67 94 Nasal 3.0L Cannula 06/15 2010 128 127/68 06/15 195 129 18 127/68 96 Nasal 4.0L Cannula 06/15 1930 Nasal 2.0L Cannula 06/15 192 162 131/67 06/15 191 97.3 167 18 128/58 93 Nasal 3.0L Cannula Intake & Output 06/16 1600 06/16 0800 06/16 0000 Intake Total 150 3 Output Total 275 500 Balance -125 -497 Intake, IV 3 Intake, Oral 150 Number 0 Bowel Movements Output, Urine 275 500 Patient 81.08 kg Weight Physical Exam General Appearance: Alert, Oriented X3, Cooperative, No Acute Distress Other Physical Findings: GEN: well developed, elderly man in no acute distress HEENT: NCAT, PERRL, EOMI, anicteric sclera NECK: Supple, no JVD, trachea midline CARD: 3/6 TATYANA, RRR PULM: CTA Bilaterally ABD: Soft, NT, ND, BS+ NEURO: Awake and alert, CN II-XII grossly intact EXT: normal pulses, no cyanosis, clubbing, or edema Current Medications: Current Medications Sig/Alisha Start time Last Medication Dose Route Stop Time Status Admin Albuterol Sulfate 2 PUF Q4 PRN 06/16 0300 AC INH Apixaban 5 MG BID 06/16 1000 AC 06/16 PO 0930 Aspirin Buffered 81 MG DAILY 06/16 1000 AC PO Atorvastatin Calcium 40 MG 1700 06/16 1700 AC PO Budesonide/ 2 PUF BID 06/16 1000 AC 06/16 Formoterol Fumarate INH 0931 Diltiazem HCl 240 MG BID 06/16 2200 AC PO Diltiazem HCl 180 MG BID 06/16 1000 DC 06/16 PO 0930 Diltiazem HCl 5 MG ONCE ONE 06/15 2114 DC 06/15 IV PUSH 06/15 Diltiazem HCl 5 MG ONCE ONE 06/15 2014 DC 06/15 IV PUSH 06/15 Diltiazem HCl 0 .STK-MED ONE 06/15 191 DC .ROUTE Diltiazem HCl 10 MG ONCE ONE 06/15 1914 DC 06/15 IV PUSH 06/16 1915 1926 Furosemide 20 MG BID 06/16 1000 AC 06/16 PO 0930 Insulin Aspart 0 TIDAC 06/16 0800 AC SC Losartan Potassium 50 MG DAILY 06/16 1000 AC 06/16 PO 0930 Metoprolol Succinate 50 MG BID 06/16 2200 AC PO Metoprolol Tartrate 50 MG BID 06/16 1000 DC 06/16 PO 0931 Metoprolol Tartrate 50 MG ONCE ONE 06/15 2230 DC 06/15 PO 06/15 223 2228 Metoprolol Tartrate 0 .STK-MED ONE 06/15 2230 DC PO Tiotropium [place] 1 PUF DAILY 06/16 1000 AC 06/16 INH 0931 Last 24 Hrs of Lab/Elfego Results Last 24 Hrs of Labs/Mics: Laboratory Tests 06/16/17 0945: Troponin I Pending 06/16/17 0326: Magnesium 1.6, Troponin I 0.03 06/15/17 1913: Anion Gap 14, Estimated GFR > 60, BUN/Creatinine Ratio 20.0, Glucose 191 H, Calcium 9.3, Total Bilirubin 0.5, AST 22, ALT 33, Alkaline Phosphatase 72, Troponin I < 0.01, Total Protein 6.9, Albumin 4.0, Globulin 2.9, Albumin/ Globulin Ratio 1.4, PT 13.1 H, INR 1.20 H, CBC w Diff NO MAN DIFF REQ, RBC 4.32 L, MCV 94.2 H, MCH 31.0, MCHC 32.9 L, RDW 13.3, MPV 8.1, Gran % 56.1, Lymphocytes % 31.6, Monocytes % 8.7, Eosinophils % 3.1, Basophils % 0.5, Absolute Granulocytes 4.5, Absolute Lymphocytes 2.5, Absolute Monocytes 0.7 H, Absolute Eosinophils 0.3, Absolute Basophils 0 Microbiology / 0330 UPPER RESP: Surveillance Culture - RECD Assessment/Plan Assessment: 77 year old man with multiple medical problems significant for atrial fibrillation on eliquis, SVT, CAD with RCA stent, and oxygen dependent COPD seen for evaluation of fatigue, weakness, and nausea found to have heart rate in the 170s with atrial fibrillation and rapid ventricular response. Patient admits to missing his morning medications. His heart rate was controled with 20 mg IV cardizem and patient was admitted to the ICU as a telemetry floor hold. Patients heart rate remains stable overnight after receiving IV pushes of cardizem in the ED. He was seen and evaluated by flight coordinator Dr. Evans Lr whom recommended changed his metoprolol tartrate to succinate and increasing the dose of his twice daily cardizem CD. Patient appears clinically well with heart rate and blood pressure well within normal limits. He is to be discharged to home with new prescriptions for these medications and instruction to follow up with his shopper insights manager Dr. Grimes next week. Problem List -Atrial Fibrillation with Rapid Ventricular Response -History of Atrial Fibrillation, on Eliquis -CAD s/p stent to RCA (2004) -COPD (3.0L home oxygen) -Hypertension -Hyperlipidemia -Non-insulin dependent diabetes mellitus -Moderate Aortic stenosis Plan -Discharge to home -Telemetry monitoring -Accuchecks TIDAC with Novologin SSI -Change Cardizem CD to 240 mg PO BID from 180 -Change Metoprolol Tartate to Succinate 50 mg PO BID -Continue previous home meds: Albuterol, Eliquis, Aspirin, Atorvastatin, Symbicort, Losartan -Cardiology consult for atrial fibrillation / SVT -Pain control with acetaminophen -Heart healthy diet -DVT PPx with Eliquis -FULL CODE -Outpatient follow up with shopper insights manager next week Problem List: 1. Atrial fibrillation with rapid ventricular response Pain Ratin Pain Location: None Pain Goal: Remain pain free Pain Plan: See assessment Tomorrow's Labs & Rationales: None Jacob Morataya MD 06/16/17 2141: Attending MD Review Statement Attending Statement Attending MD Statement: examined this patient, discuss w/resident/PA/BEATING MACHINE OPERATOR, agreed w/resident/PA/BEATING MACHINE OPERATOR, discussed with family, reviewed EMR data (avail), discussed with case mgmt, amended to note Attending Assessment/Plan: The patient was seen and discussed with house staff. Appreciate cardiology input from Dr. Escobar. Troponins negative and HR back to baseline. The patient had missed doses of meds (Ca farhat and beta farhat this am). Doses adjusted. The patient may be discharged today and is scheduled to see Dr. Grimes as OP.
[2017-06-16] MEDS ORDERED: TOPROL XL50 M1 PO (11:26)
[2017-06-16] MEDS ORDERED: CARDIZEM CD240 M1 PO (11:26)
--- NOTE | 2017-06-16 11:34 | Patient Discharge Instructions ---
Discharge Instructions General Discharge Information Special Instructions: Your dose of Cardizem has changed. Start taking Cardizem CD 240 mg by mouth twice daily. Your Metoprolol Tartrate has changed to Metoprolol Succinate 50 mg PO BID. These new medications were transmitted to [facility] in [place], [place] Follow up with your previously scheduled appointment with record press tender Dr. Sp Grimes next week. Acute Coronary Syndrome Inclusion Criteria At DC or during hospital stay patient has or had the following: ACS DIAGNOSIS No Discharge Core Measures Meds if any: Prescribed or Continued at Discharge Meds if any: NOT Prescribed or Continued at Discharge Congestive Heart Failure Inclusion Criteria At DC or during hospital stay patient has or had the following: CHF DIAGNOSIS No Discharge Core Measures Meds if any: Prescribed or Continued at Discharge Meds if any: NOT Prescribed or Continued at Discharge Cerebrovascular accident Inclusion Criteria At DC or during hospital stay patient has or had the following: CVA/TIA Diagnosis No Discharge Core Measures Meds if any: Prescribed or Continued at Discharge Meds if any: NOT Prescribed or Continued at Discharge Venous thromboembolism Inclusion Criteria VTE Diagnosis No VTE Type NONE VTE Confirmed by (Test) NONE Discharge Core Measures - Per Current guidelines, there needs to be overlap - treatment for the first 5 days of Warfarin therapy. - If discharged on Warfarin prior to 5 days of - overlap therapy, the patient will need to be - assessed for post discharge needs including - *Post discharge parental anticoagulation - *Warfarin and/or parental anticoagulation education - *Follow up date to check INR post discharge At least 5 days overlap therapy as Inpatient No Meds if any: Prescribed or Continued at Discharge Note: Overlap Therapy is Warfarin and Anticoagulant Meds if any: NOT Prescribed or Continued at Discharge
--- NOTE | 2017-06-16 11:35 | Discharge Summary ---
Visit Information Visit Dates Admission Date: 06/15/17 Discharge Date: 06/16/17 Hospital Course Course Attending Physician: Jacob Morataya MD Primary Care Physician: Griffin JACKMAN,Ronnell Vazquze Consulting Request: Consulting Specialty: Cardiology Hospital Course: 77-year-old man with past medical history of atrial fibrillation on eliquis, COPD (on 3.0 L home oxygen), coronary artery disease status post PCI with stent to RCA (2004), hypertension, hyperlipidemia, moderate aortic stenosis him a and [id number] diabetes mellitus seen for evaluation of fatigue, nausea, and weakness. Patient reported that during the morning of the day of admission he was busy doing paperwork around the time he normally would've taken his medications which she inadvertently skipped because he got "distracted". He reports that he is normally compliant with his medications and that this is never happened before. Progressively throughout the day he developed symptoms of weakness, fatigue, and nausea for which he reported to the [place] [facility] for further evaluation. ED course -Vitals: MAXIMUM TEMPERATURE 98.0, HR 78-167, RR 18-26, SPEP 127-144, O2 94-97% on 3.0 L O2 via nasal cannula -CBC: WBC 8.0, hemoglobin 13.4, hematocrit 40.7, platelets 257 -BMP: Sodium 143, potassium 4.1, chloride 101, CO2 28, urea 14, creatinine 0.7, anion gap 14, glucose 191 -LOC: AST 22, ALT 33, ALP 72 -Miscellaneous: Troponin I <0.01 -EKG: Atrial fibrillation with rapid ventricular response -CXR: No evidence for acute disease, COPD -ED interventions: * Diltiazem 10 mg IV * Diltiazem 5 mg IV 2 Problem list on admission -Atrial Fibrillation with Rapid Ventricular Response -History of Atrial Fibrillation, on Eliquis -CAD s/p stent to RCA (2004) -COPD (3.0L home oxygen) -Hypertension -Hyperlipidemia -Non-insulin dependent diabetes mellitus -Moderate Aortic stenosis Hospital course Patient was admitted to the ICU as a telemetry hold as there were no beds available on the floor. Upon arrival to the ICU telemetry demonstrated that he was in a normal sinus rhythm with heart rates in the 90s to 110s. He remained in normal sinus rhythm throughout the hospital stay. Serial troponin and EKG were unremarkable. She was seen by sensor operator Dr. Evans Lr whom recommended increasing his recent CD to 240 mg by mouth twice daily from 180 mg and changing his metoprolol tartrate to metoprolol succinate 50 mg by mouth twice daily and following up with his ground support equipment assembler Dr. Sp Grimes at his previously scheduled appointment after discharge. Patient was continued on all of his other medications during the hospital stay including his aspirin and eliquis. Allergies: Coded Allergies: No Known Allergies (02/15/17) Disposition Summary Disposition Principal Diagnosis: Atrial Fibrillation with Rapid Ventricular Response Additional Diagnosis: As above Discharge Disposition: home or self care Discharge Instructions General Discharge Information Code Status: Full Code Patient's Diet: Heart healthy diet Patient's Activity: As tolerated Follow-Up Instructions/Appts: Your dose of Cardizem has changed. Start taking Cardizem CD 240 mg by mouth twice daily. Your Metoprolol Tartrate has changed to Metoprolol Succinate 50 mg PO BID. These new medications were transmitted to [facility] in [place], [place] Follow up with your previously scheduled appointment with ground support equipment assembler Dr. Sp Grimes next week. Medications at Discharge Discharge Medications: Stop taking the following medications: Diltiazem HCl (Diltiazem 24HR ER) 180 MG CAP.ER.24H ORAL TWICE DAILY Qty = 180 Metoprolol Tartrate (Lopressor) 50 MG TABLET ORAL TWICE DAILY Continue taking these medications: Glipizide (Glipizide ER) 5 MG TAB.ER.24 1 Tablet ORAL DAILY Qty = 90 Comments: NOT TAKEN WHILE IN HOSPITAL Irbesartan (Irbesartan) 300 MG TABLET 1 Tablet ORAL DAILY Qty = 90 Comments: Last Taken: 06/16/17 Time: 0930 AM Atorvastatin Calcium (Atorvastatin Calcium) 40 MG TABLET 1 Tablet ORAL DAILY Qty = 90 Comments: NOT TAKEN WHILE IN HOSPITAL Metformin HCl (Metformin HCl) 1,000 MG TABLET 1 Tablet ORAL TWICE DAILY Qty = 180 Comments: NOT TAKEN WHILE IN HOSPITAL Budesonide/Formoterol Fumarate (Symbicort 160-4.5 Mcg Inhaler) 160 MCG-4.5 MCG/ ACTUATION HFA.AER.AD 2 Puff Inhale through mouth TWICE DAILY Qty = 10 Comments: LAST GIVEN: 06/16/17 TIME: 0930 AM Tiotropium [place] (Spiriva) 18 MCG CAP.W.DEV 1 Capsule Inhale through mouth DAILY Qty = 30 Comments: Last Taken: 06/16/17 Time: 0930 AM Aspirin (Ecotrin*) 81 MG TABLET.DR 1 Tablet ORAL DAILY Comments: NOT TAKEN IN HOSPITAL Albuterol Sulfate (Ventolin Hfa) 90 MCG HFA.AER.AD 2 Puff Inhale through mouth as needed for RESPIRATORY Comments: Last Taken: NOT GIVEN Time: Multivit-Min/FA/Lycopen/Lutein (Centrum Silver Men Tablet) 300 MCG-600 MCG-300 MCG TABLET 1 Tablet ORAL DAILY Comments: NOT TAKEN WHILE IN HOSPITAL Apixaban (Eliquis) 5 MG TABLET 1 Tablet ORAL TWICE DAILY Qty = 60 Comments: Last Taken: 06/16/17 Time: 0930 AM Furosemide (Furosemide) 20 MG TABLET 1 Tablet ORAL TWICE DAILY Qty = 90 Comments: Last Taken: 06/16/17 Time: 0930 AM Start taking the following new medications: Diltiazem HCl (Cardizem Cd) 240 MG CAP.ER.24H 240 Milligram ORAL TWICE DAILY Qty = 60 No Refills Comments: Last Taken: 06/16/17 Time: 0930 AM Metoprolol Succ XL (Toprol Xl) 50 MG TAB 50 Milligram ORAL TWICE DAILY Qty = 60 No Refills Comments: Last Taken: 06/16/17 Time: 0930 AM Copies To: Griffin JACKMAN,Ronnell Vazquez; Batool JACKMAN,Salbador Dailey; Perla JACKMAN,Jatin Bahena; Cornelio JACKMAN,Sp Zambrano ; Be JACKMAN,Evans Attending MD Review Statement Documenting Attending: Jacob Morataya MD Other Findings: The patient was seen and discussed with house staff. Agree with plan of care as outlined. To see Dr. Grimes as OP.
== END 2017-06-16 13:12 ==
LOC: ERH 18:48 → ERHI 23:52 → CRI 23:52 → ENRESERV 06-16 02:10 → CRI 06-16 02:57
PROVIDERS: Emergency Medicine
DX: I48.0 Paroxysmal atrial fibrillation (principal); Z79.01 Long term (current) use of anticoagulants; I10 Essential (primary) hypertension; E78.5 Hyperlipidemia, unspecified; E11.9 Type 2 diabetes mellitus without complications; Z79.84 Long term (current) use of oral hypoglycemic drugs; J44.9 Chronic obstructive pulmonary disease, unspecified; Z99.81 Dependence on supplemental oxygen; I25.10 Atherosclerotic heart disease of native coronary artery without angina pectoris; Z95.5 Presence of coronary angioplasty implant and graft; I35.0 Nonrheumatic aortic (valve) stenosis; I25.2 Old myocardial infarction; I47.1 Supraventricular tachycardia
CPT/HCPCS: 6020; 36415; 71045; 93005; 93010; 96374; 96376; 99291; G0378; J3490